=== PATIENT | male | born 1960 | race Hispanic/Latino ===

== ENCOUNTER 2017-07-01 12:22 | Inpatient (IN) | payer MEDICARE, OTHER ==
[2017-07-01 12:33] VITALS: BMI 22.5
--- NOTE | 2017-07-01 12:56 | ED PDOC ---
Arrival/HPI - General Time Seen by Provider: 07/01/17 12:27 Historian: Patient - History of Present Illness Narrative History of Present Illness (Text): 07/01/17 12:35 A 57 year old male, whose past medical history includes hypertension, GERD, heart surgery, presents to the emergency department for increasing pain and swelling and redness to his right foot over the past several days. The patient reports he has had a problem with his right foot and lower extremity for several weeks, but can no recall when problem began. He admits to having his foot evaluated by Dr. Lane 1 week although he cannot recollect the recommended treatment plan after that visit. He states for "months" he has been feeling short of breath. He also states that "I was hanging out with my friend yesterday and he told me 'what's wrong with you you aren't acting yourself'". He currently denies chest pain. Denies abdominal pain. Denies nausea or vomiting. Denies numbness or weakness. Time/Duration: 24 hours (last night) Symptom Onset: Sudden Symptom Course: Unchanged Activities at Onset: Light Context: Home Past Medical History - Provider Review Nursing Documentation Reviewed: Yes - Infectious Disease Hx of Infectious Diseases: None - Tetanus Immunization Tetanus Immunization: Unknown - Cardiac Hx Cardiac Disorders: Yes Hx Atrial Fibrillation: Yes Hx Hypertension: Yes Hx Peripheral Vascular Disease: Yes Other/Comment: Cardiac ablation: 07/27/14 and 10/25 - Pulmonary Hx Respiratory Disorders: No - Neurological Hx Neurological Disorder: Yes Other/Comment: Peripheral Neuropathy BLE - HEENT Hx HEENT Disorder: No - Renal Hx Renal Disorder: No - Endocrine/Metabolic Hx Endocrine Disorders: Yes (diabetes) Hx Diabetes Mellitus Type 1: Yes - Hematological/Oncological Hx Blood Transfusions: No Hx Blood Transfusion Reaction: No - Integumentary Other/Comment: bilateral great toe wounds - Musculoskeletal/Rheumatological Hx Musculoskeletal Disorders: No - Gastrointestinal Hx Gastrointestinal Disorders: Yes Hx Gastroesophageal Reflux: Yes - Genitourinary/Gynecological Hx Genitourinary Disorders: No - Psychiatric Hx Psychophysiologic Disorder: No Hx Substance Use: No - Surgical History Hx Amputation: Yes (tip of left great toe) Hx Cardiac Catheterization: Yes Hx Musculoskeletal Surgery: Yes - Anesthesia Hx Anesthesia Reactions: No Hx Malignant Hyperthermia: No - Suicidal Assessment Feels Threatened In Home Enviroment: No Family/Social History - Physician Review Nursing Documentation Reviewed: Yes Family/Social History: Unknown Family HX Smoking Status: Never Smoked Hx Alcohol Use: No Hx Substance Use: No Allergies/Home Meds Allergies/Adverse Reactions: Allergies No Known Allergies Allergy (Verified 05/05/13 00:42) Home Medications: Home Meds Medication Instructions Recorded Confirmed Apixaban [Eliquis] 5 mg PO BID 06/21/15 07/01/17 Furosemide [Lasix] 20 mg PO BID 06/21/15 07/01/17 Pantoprazole [Protonix] 40 mg PO DAILY 06/20/16 07/01/17 Insulin Glargine, Recombina 30 units SC DAILY 07/01/17 07/01/17 [Lantus] Insulin Glargine, Recombina 30 units SQ DAILY 07/01/17 07/01/17 [Lantus] Insulin Lispro [humALOG] 07/01/17 Review of Systems - Review of Systems Constitutional: Fatigue, Fevers (subjective) Eyes: absent: Vision Changes, Eye Pain ENT: absent: Hearing Changes, Sore Throat, Rhinorrhea Respiratory: SOB Cardiovascular: MCDONALD. absent: Chest Pain Gastrointestinal: Appetite Changes. absent: Abdominal Pain, Diarrhea, Nausea, Hematochezia Genitourinary Male: absent: Dysuria, Urinary Output Changes Musculoskeletal: Other (right foot pain). absent: Back Pain, Neck Pain Skin: Other (erythema; edema; malodor to the right foot. ) Neurological: absent: Headache, Dizziness, Focal Weakness Endocrine: absent: Diaphoresis Hemo/Lymphatic: absent: Easy Bleeding Psychiatric: absent: Depression, Suicidal Ideation Physical Exam - Physical Exam Narrative Physical Exam (Text): 07/01/17 12:58 Head: Atraumatic. Normocephalic. Eyes: PERRL. EOMI. Conjunctivae are not pale. ENT: Mucous membranes are moist and intact. Oropharynx is clear and symmetric. Neck: Supple. Full ROM. No JVD. No lymphadenopathy. Cardiovascular: Regular rate. Regular rhythm. Systolic murmur. Distal upper extremity pulses intact. Pulmonary/Chest: No evidence of respiratory distress. Clear to auscultation bilaterally. No wheezing, rales or rhonchi. Abdominal: Soft and non-distended. There is no tenderness. No rebound, guarding, or rigidity. No organomegaly. Good bowel sounds. Back: No CVA tenderness. No midline tenderness. Extremities: Patient with significant edema with erythema to right foot, with ulcer on doral medial aspect and purulent drainage, tender to palpation, pulse is not palpable, pain to first metatarsal, edema and erythema extend to right knee Skin: Edema, erythema, tenderness with ulcer and drainage noted to right foot Neurological: Alert, awake, and oriented to person, place, time, and situation. He is very forgetful and loses train of thought in mid conversation but does answer questions appropriately. He has supple neck with no meningeal signs. Decreased sensation to right foot. Motor exam grossly intact although difficulty with movements of the right ankle. Psychiatric: Forgetful, repetetive questions. Vital Signs Reviewed: Yes Vital Signs Temp Pulse Resp BP Pulse Ox 07/01/17 14:51 80 16 122/62 99 07/01/17 12:23 99.1 F 91 H 16 157/50 H 98 Appearance: Positive for: Non-Toxic, Ill-Appearing, Uncomfortable Pain Distress: Mild Mental Status: Positive for: Alert and Oriented X 3 Finger Stick Blood Glucose: 57 Medical Decision Making ED Course and Treatment: 07/01/17 12:58 Impression: A 57 year old male with right foot pain. Differential Diagnosis included but are not limited to: Osteomyelitis vs. Cellulitis vs. Sepsis vs. Hypoglycemia vs. Lung Disease Plan: -- EKG -- Chest X-ray -- Labs -- IV Fluids, Rocephin -- Urine Culture -- Accucheck Finger Stick -- O2 Nasal Cannula -- Procalcitaonin Serum -- Urinalysis -- Reassess and disposition Prior Visits: Notes and results from previous visits were reviewed. The patient was last seen in the emergency department on 06/20/16 for shoulder pain. The patient was discharged home. Progress Notes: Patient is poor historian. Repetitive with answers but is alert, oriented to place and time. Not hypotensive or tachycardic. Bandage removed from right foot and patient with foul odor, pain, erythema consistent with cellulitis and likely osteomyelitis. Initial WBC elevated, but initial lactate unremarkable and vitals remains stable with monitoring. CXR unremarkable for large infiltrate or effusion, oxygen saturations 100% on room air. No pleuritic pain. EKG unremarkable. Rectal exam with no active bleeding. Given high suspicion for osteomyelitis, PMD consulted and ID consult obtained emergently. Case was discussed with Dr. Heath, patient was started on Zyvox and Meropenem. The patient is found to be hyponatremic, anemic, and is found to have elevated creatinine levels, currently no signs of active bleeding. These labs were compared to patients last visit. On re-exam he is eating, drinking, resting comfortably. Xrays suggestive of osteomyelitis with fracture. CT ordered given leukocytosis, reveals air in dorsum of foot, suspect gangrene. PMD Dr. 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 Case reviewed with Dr. Wilson, will emergently evaluate patient for likely OR treatment. Care turned over to admitting physician and consultants, patient admitted and on floor 15:30. Renal insufficiency noted. Anemia noted. Repeat blood sugar improved. Patient admitted to a telemetry bed. - Critical Care Critical Care Minutes: 30 minutes - Lab Interpretations Microbiology Results: Microbiology Results 07/01/17 13:08 Blood S.aureus & Coag-Neg Staph PNA FISH - Final 07/01/17 13:08 Blood Blood Culture - Final Methicillin Resistant S Aureus 07/01/17 13:08 Blood Gram Stain - Final 07/01/17 13:30 Blood Blood Culture - Preliminary Staphylococcus Aureus 07/01/17 13:30 Blood Gram Stain - Final Lab Results: 07/01/17 13:08 07/01/17 13:08 Lab Results 07/01/17 13:08: Procalcitonin 1.25 H 07/01/17 13:08: Sodium 125 L, Chloride 91 L, Potassium 4.2, Carbon Dioxide 25, Anion Gap 13, BUN 38 H, Creatinine 2.1 H, Est GFR ( Amer) 40, Est GFR ( Non-Af Amer) 33, Random Glucose 70, Calcium 9.5, Phosphorus 4.0, Magnesium 2.0, Total Bilirubin 0.7, AST 78 H, ALT 33, Alkaline Phosphatase 184 H, Lactate Dehydrogenase 471, Total Creatine Kinase 58, Troponin I < 0.01, Total Protein 8.7 H, Albumin 3.6, Globulin 5.1, Albumin/Globulin Ratio 0.7 L 07/01/17 13:08: PT 13.3 H, INR 1.23 H, APTT 42.9 H 07/01/17 13:08: WBC 25.8 H* D, RBC 3.62, Hgb 9.1 L, Hct 27.2 L, MCV 75.1 L, MCH 25.1, MCHC 33.5, RDW 14.7 H, Plt Count 458 H, MPV 8.5, Gran % 85.9 H, Lymph % ( Auto) 4.3 L, [place] % (Auto) 9.7 H, Eos % (Auto) 0.0 L, Baso % (Auto) 0.1, Gran # 22.15 H, Lymph # 1.1 L, [place] # 2.5 H, Eos # 0.0, Baso # 0.03, Neutrophils % ( Manual) 86 H, Lymphocytes % (Manual) 8 L, Monocytes % (Manual) 6, Platelet Evaluation Normal, Hypochromasia 1+, Anisocytosis (manual) 1+, Microcytosis ( manual) 1+, Ovalocytes Slight, ESR 130 H 07/01/17 13:08: pO2 30, VBG pH 7.36, VBG pCO2 42.0, VBG HCO3 23.7, VBG Total CO2 25.0, VBG O2 Sat (Calc) 63.9, VBG Base Excess -1.8 L, VBG Potassium 4.2, Sodium 125.0 L, Chloride 92.0 L, Glucose 70 L, Lactate 1.3, FiO2 21.0, Venous Blood Potassium 4.2 07/01/17 12:56: POC Glucose (mg/dL) 64 L 07/01/17 12:30: POC Glucose (mg/dL) 57 L - RAD Interpretation Radiology Orders: 07/01/17 12:49 CHEST PORTABLE [RAD] Stat 07/01/17 12:50 FOOT RIGHT 3 VIEWS ROUTINE [RAD] Stat - Medication Orders Current Medication Orders: Acetaminophen (Tylenol 325mg Tab) 650 mg PO Q4H PRN PRN Reason: Fever >100.4 F Last Admin: 07/05/17 03:10 Dose: 650 mg Re-Assess: ROSARIO Pain/Vitals Document 07/05/17 04:10 CO (Rec: 07/05/17 05:41 CO [id number]) Pain Reassessment Is This A Pain ReAssessment? Yes Albuterol/Ipratropium (Duoneb 3 Mg/0.5 Mg (3 Ml) Ud) 3 ml IH [id number] POWER Last Admin: 07/05/17 08:09 Dose: Not Given Non-Admin Reason: Patient Refused Albuterol/Ipratropium (Duoneb 3 Mg/0.5 Mg (3 Ml) Ud) 3 ml IH Q2H PRN PRN Reason: Shortness of Breath Alprazolam (Xanax) 1 mg PO BID PRN; Protocol PRN Reason: Anxiety Last Admin: 07/05/17 01:46 Dose: 1 mg Re-Assess: Reassess Psych Meds Document 07/05/17 02:46 CO (Rec: 07/05/17 03:02 CO [id number]) Reassess Psych Med Effective Apixaban (Eliquis) 5 mg PO BID POWER PRN Reason: Protocol Last Admin: 07/04/17 17:57 Dose: 5 mg Atorvastatin Calcium (Lipitor) 20 mg PO DIN [facility] Last Admin: 07/04/17 17:57 Dose: 20 mg Diltiazem HCl (Cardizem Cd) 240 mg PO DAILY [facility] Last Admin: 07/04/17 10:47 Dose: 240 mg Docusate Sodium (Colace) 100 mg PO BID [facility] Last Admin: 07/04/17 17:57 Dose: 100 mg Furosemide (Lasix) 20 mg PO DAILY [facility] Last Admin: 07/04/17 10:47 Dose: 20 mg Meropenem 500 mg/ Sodium (Chloride) 100 mls @ 100 mls/hr IVPB Q8 POWER PRN Reason: Protocol Stop: 07/10/17 22:01 Last Admin: 07/05/17 05:39 Dose: 100 mls/hr Sodium Chloride (Sodium Chloride 0.9%) 1,000 mls @ 100 mls/hr IV .Q10H [facility] Last Admin: 07/05/17 06:21 Dose: Daptomycin 540 mg/ Sodium (Chloride) 100 mls @ 200 mls/hr IV Q24H [facility] Stop: 07/13/17 22:16 Last Admin: 07/04/17 22:55 Dose: 200 mls/hr Insulin Detemir (Levemir) 40 unit SC BID [facility] Last Admin: 07/04/17 17:57 Dose: 40 unit Insulin Human Lispro (Humalog) 25 units SC BRK [facility] Last Admin: 07/04/17 08:00 Dose: Not Given Non-Admin Reason: Blood Sugar Parameter Insulin Human Regular (Humulin R High) 0 units SC ACHS POWER PRN Reason: Protocol Last Admin: 07/04/17 22:14 Dose: Not Given Non-Admin Reason: Blood Sugar Parameter Oxycodone HCl (Oxycodone Immediate Release Tab) 30 mg PO Q4H PRN PRN Reason: Pain, severe (8-10) Last Admin: 07/05/17 00:12 Dose: 30 mg Re-Assess: ROSARIO Pain Assessment Document 07/05/17 01:12 CO (Rec: 07/05/17 01:37 CO [facility] [id number]) Pain Reassessment Is this a pain reassessment? Yes Sleep Is patient sleeping during reassessment? No Presence of Pain Presence of Pain No Pantoprazole Sodium (Protonix Ec Tab) 40 mg PO 0600 [facility] Last Admin: 07/05/17 05:39 Dose: 40 mg Discontinued Medications Bupivacaine HCl (Marcaine 0.5%) Confirm Administered Dose 30 ml .ROUTE .STK-MED ONE Stop: 07/01/17 18:17 Fentanyl (Fentanyl) Confirm Administered Dose 100 mcg .ROUTE .STK-MED ONE Stop: 07/01/17 18:32 Ceftriaxone Sodium (Rocephin 1 Gram Ivpb) 1 gm in 100 mls @ 200 mls/hr IVPB ONCE STA PRN Reason: Protocol Stop: 07/01/17 13:26 Last Admin: 07/01/17 13:12 Dose: 200 mls/hr Dextrose/Sodium Chloride (Dextrose 5%/0.9% Ns 1000 Ml) 1,000 mls @ 100 mls/hr IV .Q10H [facility] Last Admin: 07/02/17 01:48 Dose: 100 mls/hr Linezolid (Zyvox 600mg/300ml D5w) 600 mg in 300 mls @ 200 mls/hr IVPB STAT STA PRN Reason: Protocol Stop: 07/01/17 15:13 Last Admin: 07/01/17 16:32 Dose: 200 mls/hr Meropenem 1g/NS 100mL IVPB (Meropenem 1g/Ns 100ml Ivpb) 1 gm in 100 mls @ 100 mls/hr IVPB STAT STA PRN Reason: Protocol Stop: 07/01/17 14:45 Last Admin: 07/01/17 15:07 Dose: 100 mls/hr Sodium Chloride (Sodium Chloride 0.9%) 1,000 mls @ 75 mls/hr IV .[id number] POWER Stop: 07/01/17 21:46 Last Admin: 07/01/17 20:42 Dose: Linezolid (Zyvox 600mg/300ml D5w) 600 mg in 300 mls @ 200 mls/hr IVPB Q12 POWER PRN Reason: Protocol Stop: 07/11/17 22:01 Last Admin: 07/02/17 23:08 Dose: 200 mls/hr Vancomycin HCl 2 gm/ Sodium (Chloride) 500 mls @ 170 mls/hr IVPB ONCE ONE PRN Reason: Protocol Stop: 07/03/17 11:44 Last Admin: 07/03/17 11:15 Dose: Not Given Non-Admin Reason: Patient Refused Comments: stated; "I get hearing difficulty when from [facility]." Lidocaine HCl (Lidocaine 1% (20ml)) Confirm Administered Dose 20 ml .ROUTE .STK- MED ONE Stop: 07/01/17 18:17 Metoclopramide HCl (Reglan) Confirm Administered Dose 10 mg .ROUTE .STK-MED ONE Stop: 07/01/17 18:48 Midazolam HCl (Versed Inj) Confirm Administered Dose 2 mg .ROUTE .STK-MED ONE Stop: 07/01/17 18:32 Ondansetron HCl (Zofran Inj) Confirm Administered Dose 4 mg .ROUTE .STK-MED ONE Stop: 07/01/17 18:47 Oxycodone HCl (Oxycodone Immediate Release Tab) 30 mg PO Q6H PRN PRN Reason: Pain, severe (8-10) Last Admin: 07/02/17 12:25 Dose: 30 mg Re-Assess: [facility] Pain Assessment Document 07/02/17 13:25 JFR (Rec: 07/02/17 13:57 JFR [id number]) Pain Reassessment Is this a pain reassessment? Yes Sleep Is patient sleeping during reassessment? No Presence of Pain Presence of Pain Yes Pain Scale Used Pain Scale Used Numeric Description Intensity of Pain at present 2 Propofol (Diprivan) Confirm Administered Dose 200 mg .ROUTE .STK-MED ONE Stop: 07/01/17 18:45 Propofol (Diprivan) Confirm Administered Dose 200 mg .ROUTE .STK-MED ONE Stop: 07/01/17 18:52 - Scribe Statement The provider has reviewed the documentation as recorded by the Jeb Mann Provider Scribe Attestation: All medical record entries made by the Scribe were at my direction and personally dictated by me. I have reviewed the chart and agree that the record accurately reflects my personal performance of the history, physical exam, medical decision making, and the department course for this patient. I have also personally directed, reviewed, and agree with the discharge instructions and disposition. Disposition/Present on Arrival - Present on Arrival Any Indicators Present on Arrival: Yes History of DVT/PE: No History of Uncontrolled Diabetes: Yes Urinary Catheter: No History of Decub. Ulcer: No History Surgical Site Infection Following: None - Disposition Have Diagnosis and Disposition been Completed?: Yes Diagnosis: Osteomyelitis, Hyponatremia, Leukocytosis, Renal insufficiency, Gas gangrene Disposition: HOSPITALIZED Disposition Time: 14:00 Patient Plan: Admission, Telemetry Patient Problems: Current Active Problems Problem Status Onset Hyponatremia Acute Leukocytosis Acute Osteomyelitis Acute Renal insufficiency Acute Condition: SERIOUS
[2017-07-01] MEDS ORDERED: cefTRIAXone 1 gm 1 GM/100 ML BAG IVPB STA (12:57)
[2017-07-01] MEDS: Dextrose 5%/0.9% NS 1,000 ML IV SCH (13:09)
[2017-07-01 13:14] LABS: VENOUS BLOOD GAS BASE EXCESS -1.8 mmol/L (0.0-2.0); VENOUS BLOOD PH 7.36 (7.32-7.43)
[2017-07-01 13:19] LABS: BASO # 0.03 K/mm3 (0.0-2.0); BASO % 0.1 % (0.0-3.0); GRAN # 22.15 (1.4-6.5); GRAN % 85.9 % (50.0-68.0); HEMATOCRIT 27.2 % (42.0-52.0); LYMPH # 1.1 (1.2-3.4); LYMPH % 4.3 % (22.0-35.0); MEAN CELL VOLUME 75.1 fl (80.0-105.0); MEAN CORPUSCULAR HEMOGLOBIN 25.1 pg (25.0-35.0); MEAN CORPUSCULAR HGB CONC 33.5 g/dl (31.0-37.0); MEAN PLATELET VOLUME 8.5 fl (7.0-11.0); MONO # 2.5 (0.1-0.6); MONO % 9.7 % (1.0-6.0); PLATELET COUNT 458 10^3/uL (120.0-450.0); RED CELL DISTRIBUTION WIDTH 14.7 % (11.5-14.5)
[2017-07-01 13:24] LABS: ALB/GLOB RATIO 0.7 (1.1-1.8); ALKALINE PHOSPHATASE 184 U/L (38-133); ALT/SGPT 33 U/L (7-56); AST/SGOT 78 U/L (15-59); BILIRUBIN,TOTAL 0.7 mg/dL (0.2-1.3); BLOOD UREA NITROGEN 38 mg/dL (7-21); CALCIUM 9.5 mg/dL (8.4-10.5); CARBON DIOXIDE 25 mmol/L (21-33); CHLORIDE 91 mmol/L (98-107); GFR AFRICAN-AMERICAN 40; GLUCOSE,RANDOM 70 mg/dL (70-110); INR 1.23 (0.93-1.08); PARTIAL THROMBOPLASTIN TIME 42.9 Seconds (23.7-30.8); POTASSIUM 4.2 mmol/L (3.6-5.0); SODIUM 125 mmol/L (132-148); TOTAL PROTEIN 8.7 g/dL (5.8-8.3); WHITE BLOOD COUNT 25.8 10^3/ul (4.5-11.0)
[2017-07-01] MEDS ORDERED: Linezolid 600 mg in D5W 300 ml 600 MG/300 ML BAG IVPB STA (13:44)
[2017-07-01 13:46] LABS: TROPONIN I < 0.01 ng/mL
[2017-07-01] MEDS ORDERED: Meropenem 1g/NS 100mL IVPB 1 GM/100 ML PIGGYBACK IVPB STA (13:46)
[2017-07-01 14:29] LABS: ERYTHROCYTE SEDIMENTATION RATE 130 mm/hr (0.00-15.0)
[2017-07-01 14:30] LABS: NEUTROPHIL 86 % (50.0-70.0)
[2017-07-01 14:31] LABS: ANISOCYTOSIS 1+; HYPOCHROMIA 1+; MICROCYTOSIS 1+; OVALOCYTES SLIGHT; PLATELET ESTIMATE NORMAL (NORMAL)
--- NOTE | 2017-07-01 14:41 | RAD ---
PROCEDURE: Right Foot Radiographs. HISTORY: eval for osteomyelitis COMPARISON: 07/15/2015 FINDINGS: BONES: No acute fracture. Status post amputation 3rd digit at the metatarsal phalangeal articulation. Status post arthrodesis of 1st interphalangeal joint. Smooth periosteal reaction is seen about the distal half of the 2nd metatarsal unchanged from prior examination. This may be the result of prior osteomyelitis or healed fracture. There is osseous erosion at the base of the 1st metatarsal at its lateral aspect, evident on the true AP view only. There is also some periosteal reaction seen along the diaphysis of the 1st metatarsal again not evident on prior examination. These findings are concerning for osteomyelitis. No other osseous erosion or periosteal reaction is appreciated elsewhere. 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 SOFT TISSUES: Extensive soft tissue swelling seen about medial aspect of the foot centered over the tarsal -metatarsal articulation. There is some subcutaneous gas noted as well raising concern for gangrene. OTHER FINDINGS: None. IMPRESSION: Findings concerning for osteomyelitis of the 1st metatarsal. Soft tissue swelling with subcutaneous gas seen over the medial aspect of the foot concerning for gangrene. Additional findings as above.
--- NOTE | 2017-07-01 15:09 | RAD ---
HISTORY: sob COMPARISON: 07/11/2015 FINDINGS: LUNGS: No active pulmonary disease. PLEURA: No significant pleural effusion identified, no pneumothorax apparent. CARDIOVASCULAR: Normal. OSSEOUS STRUCTURES: No significant abnormalities. VISUALIZED UPPER ABDOMEN: Normal. OTHER FINDINGS: None. IMPRESSION: No active disease.
--- NOTE | 2017-07-01 15:47 | CT ---
PROCEDURE: CT right foot HISTORY: ct foot eval osteomyelitis/abscess COMPARISON: Not available TECHNIQUE: 1.25 mm contiguous axial sections were acquired through the right foot. Sagittal and coronal images were reformatted from the axial scan. FINDINGS: There is osteomyelitis of the 1st metatarsal with irregular periosteal new bone along the diaphysis of the 1st metatarsal. There is intra-articular fracture at the lateral base of the 1st metatarsal with a separate 12 mm fragment identified. This fragment remains in articulation with the medial cuneiform. There is gas seen within the fracture. There is evidence of osteoarthritis at the 1st tarsal metatarsal articulation. There is erosion of the anterior plantar aspect of the medial cuneiform, both at its medial and lateral aspect. This constellation of findings is consistent with infectious arthritis in addition to the above-noted osteomyelitis. There is subcortical lucency of the distal aspect of the medial cuneiform, likely related to the osteomyelitis/infectious arthritis noted above. There is thick smooth periosteal reaction seen about the distal diaphysis and head of the 2nd metatarsal likely related to prior healed fracture or osteomyelitis. The patient is status post amputation of the 3rd digit at the metatarsal phalangeal articulation. There is periosteal reaction seen over the anterior medial aspect of the distal tibia, likely indicative of osteomyelitis. The patient is status post arthrodesis of the 1st interphalangeal joint. There is extensive soft tissue swelling noted about the ankle. There is subcutaneous gas seen over the dorsal aspect of the midfoot and proximal metatarsals. This is indicative of possible gangrene. There is also gas seen about the medial aspect of 1st metatarsal diaphysis. As noted above, there is gas seen within the 1st tarsal -metatarsal articulation. There is intramedullary gas noted within the proximal half of the 1st metatarsal. IMPRESSION: Multifocal osteomyelitis. 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 Displaced fracture at the lateral base of the 1st metatarsal. Extensive cellulitis. Subcutaneous gas over the dorsum of the foot indicative of possible gangrene.
[2017-07-01] MEDS: Insulin Reg-HIGH-Coverage SC SCH ×2 (16:48→22:23)
--- NOTE | 2017-07-01 17:35 | CP.PCM.CON ---
<Codie Montiel - Last Filed: 07/01/17 19:29> History of Present Illness - History of Present Illness History of Present Illness: 57 year old male with PMHx including DM, neuropathy, HTN, GERD cardiac ablation was seen at bedside regarding right foot ulcer. Patient states that his right foot and leg have been painful for the past 2 days. He states that his foot and leg have also been swollen and red. He states that he has had an ulcer on the bottom of his right foot for months and has been treated by Dr. Lane. He admits to n/v/f/c/sob. Patient states that he last ate at noon. Past Patient History - Infectious Disease Hx of Infectious Diseases: None - Tetanus Immunizations Tetanus Immunization: Unknown - Past Social History Smoking Status: Never Smoked - CARDIAC Hx Cardiac Disorders: Yes Hx Atrial Fibrillation: Yes Hx Hypertension: Yes Hx Peripheral Vascular Disease: Yes Other/Comment: Cardiac ablation: 07/27/14 and 10/25 - PULMONARY Hx Respiratory Disorders: No - NEUROLOGICAL Hx Neurological Disorder: Yes Other/Comment: Peripheral Neuropathy BLE - HEENT Hx HEENT Problems: No - RENAL Hx Chronic Kidney Disease: No - ENDOCRINE/METABOLIC Hx Endocrine Disorders: Yes (diabetes) Hx Diabetes Mellitus Type 1: Yes - HEMATOLOGICAL/ONCOLOGICAL Hx Blood Transfusions: No Hx Blood Transfusion Reaction: No - INTEGUMENTARY Other/Comment: bilateral great toe wounds - MUSCULOSKELETAL/RHEUMATOLOGICAL Hx Musculoskeletal Disorders: No - GASTROINTESTINAL Hx Gastrointestinal Disorders: Yes Hx Gastroesophageal Reflux: Yes - GENITOURINARY/GYNECOLOGICAL Hx Genitourinary Disorders: No - PSYCHIATRIC Hx Psychophysiologic Disorder: No Hx Substance Use: No - SURGICAL HISTORY Hx Amputation: Yes (tip of left great toe) Hx Cardiac Catheterization: Yes Hx Musculoskeletal Surgery: Yes - ANESTHESIA Hx Anesthesia Reactions: No Hx Malignant Hyperthermia: No Meds Allergies/Adverse Reactions: Allergies Allergy/AdvReac Type Severity Reaction Status Date / Time No Known Allergies Allergy Verified 05/05/13 00:42 - Medications Medications: Current Medications Apixaban (Eliquis) 5 mg PO BID POWER PRN Reason: Protocol Docusate Sodium (Colace) 100 mg PO BID [facility] Dextrose/Sodium Chloride (Dextrose 5%/0.9% Ns 1000 Ml) 1,000 mls @ 100 mls/hr IV .Q10H [facility] Last Admin: 07/01/17 13:09 Dose: 100 mls/hr Insulin Human Regular (Humulin R High) 0 units SC ACHS POWER PRN Reason: Protocol Last Admin: 07/01/17 16:48 Dose: Not Given Oxycodone HCl (Oxycodone Immediate Release Tab) 30 mg PO Q6H PRN PRN Reason: Pain, severe (8-10) Physical Exam - Constitutional Appears: Non-toxic, No Acute Distress - Extremities Exam Additional comments: Right lower extremity focused exam: Vasc:DP and PT pulses non-palpable. Skin temperature increased to the right lower extremity Neuro: Gross sensation diminished Ortho: Pain on palpation to right foot and leg Derm: Open ulceration noted to the plantar 1st metatarsal on the right with fibrotic base, probe to bone noted. Foul odor noted, erythema noted, crepitus noted. - Neurological Exam Neurological exam: Alert, Oriented x3 - Psychiatric Exam Psychiatric exam: Normal Affect, Normal Mood Results - Vital Signs Recent Vital Signs: Last Vital Signs Temp 99.0 F 07/01/17 15:42 Pulse 79 07/01/17 16:17 Resp 18 07/01/17 15:59 BP 106/44 L 07/01/17 15:59 Pulse Ox 97 07/01/17 15:59 - Labs Result Diagrams: 07/01/17 13:08 07/01/17 13:08 Labs: Laboratory Results - last 24 hr 07/01/17 16:24 POC Glucose (mg/dL) 250 H Assessment & Plan - Assessment and Plan (Free Text) Assessment: 57 year old male with right foot plantar ulceration with gas gangrene Plan: patient examined and evaluated discussed in detail with attending, Dr. Wilson chart, labs, vitals reviewed;WBC 25.8 radiographs reviewed:soft tissue swelling and gas noted to medial aspect of right foot, OM of the first metatarsal CT IMPRESSION: Multifocal osteomyelitis. Infectious arthritis at the 1st tarsal -metatarsal articulation. Displaced fracture at the lateral base of the 1st metatarsal. Extensive cellulitis. Subcutaneous gas over the dorsum of the foot indicative of possible gangrene PT to OR tonight at 6 pm for right foot I and D NPO status confirmed Pt was explained procedure and post-operative course All pt's questions were answered to satisfaction No guarantees were made Pt understands all risks, benefits and complications of procedure podiatry will follow patient while in house <Brandi Wilson - Last Filed: 07/15/17 19:23> Results - Vital Signs Recent Vital Signs: Last Vital Signs Temp 98 F 07/12/17 07:52 Pulse 73 07/12/17 09:36 Resp 20 07/12/17 07:52 BP 155/74 H 07/12/17 09:36 Pulse Ox 98 07/12/17 07:52 - Labs Result Diagrams: 07/12/17 06:05 07/12/17 06:05 Attending/Attestation - Attestation I have personally seen and examined this patient.: Yes I have fully participated in the care of the patient.: Yes I have reviewed all pertinent clinical information: Yes
[2017-07-01] MEDS ORDERED: Lidocaine 1% Inj (20ml) ONE (18:16)
[2017-07-01] MEDS ORDERED: Bupivacaine 0.5% Inj(30mL) ONE (18:16)
[2017-07-01] MEDS ORDERED: Midazolam 2 MG/2 ML VIAL ONE (18:31)
[2017-07-01] MEDS ORDERED: Propofol 10 mg/ml Inj (20 ML) ONE ×2 (18:44→18:51)
--- NOTE | 2017-07-01 19:29 | PCM.SURG1 ---
Surgeon's Initial Post Op Note - Surgeon's Notes Surgeon: Dr. Wilson DPM Car Audio Installer: Dr. Montiel DPM PGY-2 Type of Anesthesia: IV Sedation, Local Anesthesia Administered By: Dr. Dumont Pre-Operative Diagnosis: right foot gas gangrene with plantar ulceration Operative Findings: see dictation Post-Operative Diagnosis: same Operation Performed: right foot incision and drainage with debridement of plantar ulceration Specimen/Specimens Removed: right foot deep wound culture, soft tissue Estimated Blood Loss: EBL {In ML}: 15 Blood Products Given: N/A Drains Used: No Drains Post-Op Condition: Good Date of Surgery/Procedure: 07/01/17 Time of Surgery/Procedure: 19:29
[2017-07-01] MEDS ORDERED: Sodium Chloride 0.9% 1,000 ML IV SCH (19:45)
[2017-07-01] MEDS: Meropenem 500 MG in Sodium Chloride 0.9% 100 ML IVPB SCH (21:49)
[2017-07-01] MEDS: Linezolid 600 mg in D5W 300 ml 600 MG/300 ML BAG IVPB SCH (21:49)
[2017-07-01] MEDS ORDERED: Linezolid 600 mg in D5W 300 ml 600 MG/300 ML BAG IVPB SCH (22:00)
[2017-07-02 01:20] LABS: URINE BILIRUBIN NEGATIVE (NEGATIVE); URINE BLOOD NEGATIVE (NEGATIVE); URINE GLUCOSE (UA) 250 mg/dL (NEGATIVE); URINE KETONE NEGATIVE (NEGATIVE); URINE LEUKOCYTE ESTERASE NEGATIVE Leu/uL (NEGATIVE); URINE PROTEIN TRACE mg/dL (<30 mg/dL); URINE UROBILINOGEN 0.2 E.U./dL (<1 E.U./dL)
[2017-07-02 01:23] LABS: URINE APPEARANCE CLEAR (CLEAR); URINE COLOR YELLOW (YELLOW)
[2017-07-02 01:44] LABS: URINE EPITHELIAL CELLS 0 - 2 /hpf (0-5); URINE WBC 0 - 2 /hpf (0-6)
[2017-07-02 01:45] LABS: URINE RBC 0 - 2 /hpf (0-2)
[2017-07-02] MEDS: Dextrose 5%/0.9% NS 1,000 ML IV SCH (01:48)
[2017-07-02] MEDS: Meropenem 500 MG in Sodium Chloride 0.9% 100 ML IVPB SCH ×3 (05:03→22:00)
[2017-07-02] MEDS: oxyCODONE 30 mg Immediate Release Tab PO PRN ×4 (05:08→20:46)
--- NOTE | 2017-07-02 06:48 | OP ---
PROCEDURE DATE: 07/01/2017 PREOPERATIVE DIAGNOSIS: Right foot gas gangrene with plantar ulceration. POSTOPERATIVE DIAGNOSIS: Right foot gas gangrene with plantar ulceration. NAME OF PROCEDURE: Right foot incision and drainage with plantar ulcer debridement. SURGEON: Branid Wilson DPM DRUG ROOM CLERK: Codie Montiel DPM, PGY2. TYPE OF ANESTHESIA: IV sedation with local. ANESTHESIA ADMINISTERED BY: Dr. Dumont. INDICATIONS: The patient is a 57-year-old male with the above diagnosis. The patient has exhausted all conservative treatment at time and now requires surgical intervention. The patient signed the consent after careful explanation of risks, benefits, complications and alternatives for surgical procedure. No guarantees were given nor implied. DESCRIPTION OF PROCEDURE: The patient was brought into the operating room table. A time out was performed for for identification of correct patient and procedure. The patient received an ankle block with a total of 20 mL of 1:1 mixture of 1% lidocaine plain and 0.5% Marcaine plain. Once local anesthesia was achieved, the right foot was then prepped and draped in a normal sterile manner and procedure began. PROCEDURE 1: Right foot incision and drainage with plantar ulcer debridement. Attention was directed to the dorsal aspect of the first metatarsal where approximately 8 cm incision was made from the first metatarsal phalangeal joint to the midfoot. The incision was then deepened,utilizing hemostat. Purulent and sanguineous drainage was noted coming from the surgical site. The tissue planes were then explored with a hemostat. A deep tissue culture was then obtained and passed of the field and sent for pathology. Attention was then directed to the plantar aspect of the 1st metatarsal where a ulceration was noted approximately 4 cm x 4 cm that probe to bone. The nonviable tissue was excisionally debrided with pickups and scissors and then passed off the surgical site. As the ulcer probed to bone, hemostats were placed in the ulceration site and purulent drainage was noted. The track from the dorsal and plantar sites were then explored with a hemostat and purulence was expressed. Then utilizing a pulse lavage approximately 3 liters of normal sterile saline was used to irrigate the surgical site. All the purulence was noted to have been expressed at this time. The surgical site was then packed with 1/4 inch iodoform packing. The site was then dressed with sterile 4 x 4 gauze, ABD pads and lastly Kerlix. POSTOPERATIVE CONDITION: The patient tolerated the anesthesia and procedure well and was reported to PACU with vital signs stable. The patient will be followed inhouse. Codie Montiel DPM JULIA
[2017-07-02 08:03] LABS: GRAN % 84.9 % (50.0-68.0); HEMATOCRIT 24.1 % (42.0-52.0); LYMPH % 7.3 % (22.0-35.0); MEAN CELL VOLUME 75.8 fl (80.0-105.0); MEAN CORPUSCULAR HEMOGLOBIN 24.5 pg (25.0-35.0); MEAN CORPUSCULAR HGB CONC 32.4 g/dl (31.0-37.0); MEAN PLATELET VOLUME 7.9 fl (7.0-11.0); MONO % 7.7 % (1.0-6.0); RED CELL DISTRIBUTION WIDTH 14.6 % (11.5-14.5); WHITE BLOOD COUNT 12.4 10^3/ul (4.5-11.0)
[2017-07-02 08:04] LABS: BASO # 0.01 K/mm3 (0.0-2.0); BASO % 0.1 % (0.0-3.0); GRAN # 10.54 (1.4-6.5); LYMPH # 0.9 (1.2-3.4)
[2017-07-02] MEDS: Sodium Chloride 0.9% 1,000 ML IV SCH (08:11)
[2017-07-02] MEDS: Insulin Reg-HIGH-Coverage SC SCH ×4 (08:11→21:27)
[2017-07-02 08:14] LABS: INR 1.29 (0.93-1.08)
[2017-07-02 08:19] LABS: ALB/GLOB RATIO 0.6 (1.1-1.8); ALKALINE PHOSPHATASE 151 U/L (38-133); ALT/SGPT 34 U/L (7-56); AST/SGOT 33 U/L (15-59); BILIRUBIN,TOTAL 0.2 mg/dL (0.2-1.3); BLOOD UREA NITROGEN 17 mg/dL (7-21); CALCIUM 8.2 mg/dL (8.4-10.5); CARBON DIOXIDE 24 mmol/L (21-33); CHLORIDE 96 mmol/L (98-107); GFR AFRICAN-AMERICAN > 60; GLUCOSE,RANDOM 263 mg/dL (70-110); POTASSIUM 3.9 mmol/L (3.6-5.0); SODIUM 127 mmol/L (132-148); TOTAL PROTEIN 6.9 g/dL (5.8-8.3)
--- NOTE | 2017-07-02 10:13 | CARD ---
APPROVED REPORT EKG Measurement Heart [id number] <Conclusion> Normal sinus rhythm Normal ECG
[2017-07-02] MEDS: Linezolid 600 mg in D5W 300 ml 600 MG/300 ML BAG IVPB SCH ×2 (10:51→23:08)
[2017-07-02] MEDS: Insulin Detemir 100 units/ml Vial (Levemir) SC SCH ×2 (10:51→17:33)
[2017-07-02] MEDS: diltiaZEM 240 mg/24 Hours CD Cap PO SCH (10:52)
--- NOTE | 2017-07-02 11:59 | CP.PCM.CON ---
History of Present Illness - History of Present Illness History of Present Illness: 57 year old male with PMH of HTN, DM, GERD, peripheral neuropathy, history of cardiac ablation, history of left hallux partial amputation, peripheral vascular disease has had a right foot plantar ulcer for more than a month now and has been following with a Funeral Service Manager with local wound care and at times local antibiotic ointment application. He had been doing well until about 2 days ago when he started to feel pain and swelling of his right foot which progressively worsened over 2 days. He did not notice drainage from the ulcer then. He also denies fever or chlls, no nausea or vomiting, no headache or dizziness, no chest pain, no SOB, no abdominal pain, no diarrhea, no dysuria. CT of the leg showed probable gas gangrene and the patient underwent emergent surgery with debridement of his right foot. Infectious diseases consult is requested to further evaluate and manage. Review of Systems - Review of Systems All systems: reviewed and no additional remarkable complaints except (as per HPI ) Past Patient History - Infectious Disease Hx of Infectious Diseases: None - Tetanus Immunizations Tetanus Immunization: Unknown - Past Social History Smoking Status: Never Smoked - CARDIAC Hx Cardiac Disorders: Yes Hx Atrial Fibrillation: Yes Hx Hypertension: Yes Hx Peripheral Vascular Disease: Yes Other/Comment: Cardiac ablation: 07/27/14 and 10/25 - PULMONARY Hx Respiratory Disorders: No - NEUROLOGICAL Hx Neurological Disorder: Yes Other/Comment: Peripheral Neuropathy BLE - HEENT Hx HEENT Problems: No - RENAL Hx Chronic Kidney Disease: No - ENDOCRINE/METABOLIC Hx Endocrine Disorders: Yes (diabetes) Hx Diabetes Mellitus Type 1: Yes - HEMATOLOGICAL/ONCOLOGICAL Hx Blood Transfusions: No Hx Blood Transfusion Reaction: No - INTEGUMENTARY Other/Comment: bilateral great toe wounds - MUSCULOSKELETAL/RHEUMATOLOGICAL Hx Musculoskeletal Disorders: No - GASTROINTESTINAL Hx Gastrointestinal Disorders: Yes Hx Gastroesophageal Reflux: Yes - GENITOURINARY/GYNECOLOGICAL Hx Genitourinary Disorders: No - PSYCHIATRIC Hx Psychophysiologic Disorder: No Hx Substance Use: No - SURGICAL HISTORY Hx Amputation: Yes (tip of left great toe) Hx Cardiac Catheterization: Yes Hx Musculoskeletal Surgery: Yes - ANESTHESIA Hx Anesthesia Reactions: No Hx Malignant Hyperthermia: No Meds Allergies/Adverse Reactions: Allergies Allergy/AdvReac Type Severity Reaction Status Date / Time No Known Allergies Allergy Verified 05/05/13 00:42 - Medications Medications: Current Medications Acetaminophen (Tylenol 325mg Tab) 650 mg PO Q4H PRN PRN Reason: Fever >100.4 F Last Admin: 07/02/17 05:03 Dose: 650 mg Alprazolam (Xanax) 1 mg PO BID PRN; Protocol PRN Reason: Anxiety Apixaban (Eliquis) 5 mg PO BID POWER PRN Reason: Protocol Last Admin: 07/01/17 18:25 Dose: Not Given Atorvastatin Calcium (Lipitor) 20 mg PO DIN [facility] Diltiazem HCl (Cardizem Cd) 240 mg PO DAILY [facility] Docusate Sodium (Colace) 100 mg PO BID [facility] Last Admin: 07/01/17 18:25 Dose: Not Given Furosemide (Lasix) 20 mg PO DAILY [facility] Meropenem 500 mg/ Sodium (Chloride) 100 mls @ 100 mls/hr IVPB Q8 POWER PRN Reason: Protocol Stop: 07/10/17 22:01 Last Admin: 07/02/17 05:03 Dose: 100 mls/hr Linezolid (Zyvox 600mg/300ml D5w) 600 mg in 300 mls @ 200 mls/hr IVPB Q12 POWER PRN Reason: Protocol Stop: 07/11/17 22:01 Last Admin: 07/01/17 21:49 Dose: 200 mls/hr Sodium Chloride (Sodium Chloride 0.9%) 1,000 mls @ 100 mls/hr IV .Q10H [facility] Last Admin: 07/02/17 08:11 Dose: 100 mls/hr Insulin Detemir (Levemir) 40 unit SC BID [facility] Insulin Human Lispro (Humalog) 25 units SC BRK [facility] Insulin Human Regular (Humulin R High) 0 units SC ACHS [facility] PRN Reason: Protocol Last Admin: 07/02/17 08:11 Dose: 10 units Oxycodone HCl (Oxycodone Immediate Release Tab) 30 mg PO Q6H PRN PRN Reason: Pain, severe (8-10) Last Admin: 07/02/17 05:08 Dose: 30 mg Pantoprazole Sodium (Protonix Ec Tab) 40 mg PO 0600 [facility] Physical Exam - Constitutional Appears: Non-toxic, No Acute Distress - Head Exam Head Exam: NORMAL INSPECTION - ENT Exam ENT Exam: Mucous Membranes Moist - Neck Exam Neck exam: Negative for: Lymphadenopathy, Meningismus - Respiratory Exam Respiratory Exam: Decreased Breath Sounds - Cardiovascular Exam Cardiovascular Exam: +S1, +S2 - GI/Abdominal Exam GI & Abdominal Exam: Soft. absent: Tenderness - Extremities Exam Additional comments: right foot with dry dressings in place Results - Vital Signs Recent Vital Signs: Last Vital Signs Temp 100.1 F H 07/02/17 05:55 Pulse 84 07/02/17 05:55 Resp 20 07/02/17 05:55 BP 110/60 07/02/17 05:55 Pulse Ox 99 07/02/17 05:55 - Labs Result Diagrams: 07/02/17 07:20 07/02/17 07:20 Labs: Laboratory Results - last 24 hr 07/01/17 07/01/17 07/02/17 16:24 22:16 00:53 WBC RBC Hgb Hct MCV MCH MCHC RDW Plt Count MPV Gran % Lymph % (Auto) Gage % (Auto) Eos % (Auto) Baso % (Auto) Gran # Lymph # Gage # Eos # Baso # PT INR Sodium Potassium Chloride Carbon Dioxide Anion Gap BUN Creatinine Est GFR ( Amer) Est GFR (Non-Af Amer) POC Glucose (mg/dL) 250 H 223 H Random Glucose Calcium Total Bilirubin AST ALT Alkaline Phosphatase Total Protein Albumin Globulin Albumin/Globulin Ratio Urine Color Yellow Urine Appearance Clear Urine pH 6.0 Ur Specific [place] 1.025 Urine Protein Trace H Urine Glucose (UA) 250 H Urine Ketones Negative Urine Blood Negative Urine Nitrate Negative Urine Bilirubin Negative Urine Urobilinogen 0.2 Ur Leukocyte Esterase Negative Urine RBC 0 - 2 Urine WBC 0 - 2 Ur Epithelial Cells 0 - 2 07/02/17 07/02/17 07/02/17 07:20 07:20 07:20 WBC 12.4 H D RBC 3.18 L Hgb 7.8 L Hct 24.1 L MCV 75.8 L MCH 24.5 L MCHC 32.4 RDW 14.6 H Plt Count 281 MPV 7.9 Gran % 84.9 H Lymph % (Auto) 7.3 L Gage % (Auto) 7.7 H Eos % (Auto) 0.0 L Baso % (Auto) 0.1 Gran # 10.54 H Lymph # 0.9 L Gage # 1.0 H Eos # 0.0 Baso # 0.01 PT 13.9 H INR 1.29 H Sodium 127 L Potassium 3.9 Chloride 96 L Carbon Dioxide 24 Anion Gap 11 BUN 17 Creatinine 0.6 Est GFR ( Amer) > 60 Est GFR (Non-Af Amer) > 60 POC Glucose (mg/dL) Random Glucose 263 H Calcium 8.2 L Total Bilirubin 0.2 AST 33 ALT 34 Alkaline Phosphatase 151 H Total Protein 6.9 Albumin 2.7 L Globulin 4.2 Albumin/Globulin Ratio 0.6 L Urine Color Urine Appearance Urine pH Ur Specific [place] Urine Protein Urine Glucose (UA) Urine Ketones Urine Blood Urine Nitrate Urine Bilirubin Urine Urobilinogen Ur Leukocyte Esterase Urine RBC Urine WBC Ur Epithelial Cells 07/02/17 07:28 WBC RBC Hgb Hct MCV MCH MCHC RDW Plt Count MPV Gran % Lymph % (Auto) Gage % (Auto) Eos % (Auto) Baso % (Auto) Gran # Lymph # Gage # Eos # Baso # PT INR Sodium Potassium Chloride Carbon Dioxide Anion Gap BUN Creatinine Est GFR ( Amer) Est GFR (Non-Af Amer) POC Glucose (mg/dL) 329 H Random Glucose Calcium Total Bilirubin AST ALT Alkaline Phosphatase Total Protein Albumin Globulin Albumin/Globulin Ratio Urine Color Urine Appearance Urine pH Ur Specific [place] Urine Protein Urine Glucose (UA) Urine Ketones Urine Blood Urine Nitrate Urine Bilirubin Urine Urobilinogen Ur Leukocyte Esterase Urine RBC Urine WBC Ur Epithelial Cells Assessment & Plan - Assessment and Plan (Free Text) Plan: Assessment Sepsis due to probable gas gangrene with osteomyelitis of the right foot associated with a chronic plantar ulcer S/P debridement POD #1 HTN DM GERD peripheral neuropathy history of cardiac ablation history of left hallux partial amputation peripheral vascular disease Plan started patient on Zyvox and Merrem pending OR cx and pathology; patient may need further debdridement; follow up further Podiatry plans (ie. for further debridement) will monitor clinically
--- NOTE | 2017-07-02 22:51 | HP ---
DATE OF SERVICE: 07/02/2017 HISTORY OF PRESENT ILLNESS: The patient is a 57 year old man with insulin dependent diabetes mellitus with diabetic neuropathy, hypertension, hyperlipidemia and history of right lower extremity cellulitis and osteomyelitis of the right first toe with MRSA bacteremia who presented to [facility] with a several day history of lethargy, malaise, subjective fevers and severe right foot pain. The patient lives in both [place] and [place] and has been in [place] for the past several months; however, he has recently returned to [place] and upon his return he noted increased right foot discomfort. The patient states that initially the pain was very mild and had progressed over the course of several days. He noted increasing edema and erythema associated with his pain, but no purulent discharge. The patient is closely followed by Dr. Lane of podiatry given his history of right hammer toe repair with hardware placement (in 2014) with subsequent complications as noted above at which the patient was admitted for osteomyelitis and MRSA bacteremia. Upon this presentation to the emergency department, the patient was noted to be afebrile and hemodynamically stable; however, in significant discomfort secondary to right foot pain. Imaging studies, which were obtained consisting of an x ray and a CT, demonstrated multifocal osteomyelitis and infectious arthritis as well as subcutaneous gas formation over the dorsum. Given his physical examination, radiographic findings and multiple derangements on his laboratory studies, the patient was taken urgently to the OR with Dr. Wilson of the podiatry team. This morning, he is lying comfortably in bed and states his pain symptoms have significantly improved, and otherwise, offers no complaints. PAST MEDICAL HISTORY: As per HPI. Also hyperlipidemia, anxiety disorder and paroxysmal atrial fibrillation. PAST SURGICAL HISTORY: As per HPI. Also repair of Achilles tendon tear. ALLERGIES: NO KNOWN DRUG ALLERGIES. MEDICATIONS: Humalog 70/30 25 units SC q.a.m., Lantus 40 units SC b.i.d., Eliquis 5 mg p.o. b.i.d., Lasix 20 mg p.o. daily, Protonix 40 mg p.o. daily, Ramipril 2.5 mg p.o. daily, Diltiazem 240 mg p.o. daily, Xanax 1 mg p.o. b.i.d. and oxycodone 30 mg p.o. q. 4 hours p.r.n. pain. FAMILY HISTORY: Significant for hypertension, diabetes and hyperlipidemia. SOCIAL HISTORY: The patient denies any toxic habits. REVIEW OF SYSTEMS: Significant for malaise, subjective fevers, chills and pain with edema to the right foot. Negative for chest pain, cough, palpitations, nausea, vomiting, diarrhea, headache or syncope. PHYSICAL EXAMINATION: GENERAL: Frail, toxic appearing man, lying in bed in mild distress secondary to right foot pain. VITAL SIGNS: Temperature 100.1, pulse 84, blood pressure 110/60, respiratory rate 20 and oxygen saturation 99% on room air. HEENT: PERRL. EOMI. No scleral icterus. No conjunctival pallor. NECK: No JVD. LUNGS: Clear to auscultation. CARDIOVASCULAR: Regular rate and rhythm. Normal S1 and S2. ABDOMEN: Normoactive bowel sounds. Soft, nontender and nondistended. EXTREMITIES: Left lower extremity with no edema. Right lower extremity with edema and surgical dressing in place. NEUROLOGIC: Awake, alert and oriented x3. No focal motor deficits. Decrease sensation to all toes bilaterally. LABORATORY DATA: WBC 25.8 with 86% neutrophils, hemoglobin 9, hematocrit 27 and platelets 458. Sodium 125, potassium 4.2, chloride 91, bicarbonate 25, BUN 38, creatinine 2.1 and glucose 70. Procalcitonin 1.25. IMAGING STUDIES: Chest x ray demonstrates no active disease. Right foot x ray demonstrates findings concerning for osteomyelitis of the first metatarsal with soft tissue swelling and subcutaneous gas. CT of the right lower extremity without contrast demonstrates multifocal osteomyelitis and infectious arthritis of the first metatarsal with extensive cellulitis and subcutaneous gas over the dorsum of the right foot. ASSESSMENT: The patient is a 57-year-old man with insulin dependent diabetes mellitus with diabetic neuropathy, hypertension, hyperlipidemia, and history of right lower extremity osteomyelitis with methicillin-resistant Staphylococcus aureus bacteremia who presented to the [facility] with several day history of increasing right foot pain, edema and erythema who was subsequently found to have subcutaneous gas on imaging studies who was emergently taken to the operating room by Dr. Wilson of podiatry. PLAN: 1. Osteomyelitis of the right foot. Input from Dr. Wilson note is really appreciated and the patient is status post debridement in the OR given findings of subcutaneous gas on imaging studies. Input from Dr. Heath also noted and appreciated. The patient remains on meropenem 500 mg IV q.8 hours and Linezolid 600 mg IV q. 12 hours. Continue monitoring for fever and leukocytosis. Continue with Tylenol as needed for fever. We will await culture reports. Continue with postoperative care as per Dr. Wilson and Dr. Lane of podiatry. 2. Hypertension. Blood pressure remains stable. The patient is on Ramipril 2.5 mg p.o. daily at home; however, given his acute kidney injury, we will hold Ramipril at present. 3. Hyperlipidemia. We will start Lipitor 20 mg p.o. daily. 4. Acute kidney injury. Considered secondary to prerenal azotemia in the setting of poor p.o. intake and in the setting of sever sepsis. Continue with IV fluid hydration consisting of normal saline at 100 mL per hour. Continue to monitor renal function daily. Monitor strict ins and outs. Avoid nephrotoxins and renally dosed medications. 5. Hyponatremia. Etiology likely secondary to poor p.o. intake. Continue with aggressive IV fluid hydration as above. 6. Insulin dependent diabetes mellitus with diabetic neuropathy. We will resume the patient's home regimen consisting of Humalog 70/30 25 units SC q.a.m. and Lantus 40 units SC b.i.d. 7. Anxiety disorder. Continue with Xanax 1 mg p.o. b.i.d. 8. Paroxysmal atrial fibrillation. We will resume Diltiazem 240 mg p.o. daily. We will hold Eliquis 5 mg p.o. b.i.d. in anticipation of possible operative intervention with the podiatry team. 9. Sciatica. Continue with oxycodone 30 mg p.o. q. 4 hours p.r.n. pain. 10. Prophylaxis. Continue with Protonix 40 mg p.o. daily. We will hold anticoagulation pending possible repeat podiatric procedure. CODE STATUS: FULL CODE. Ty Monterroso MD
[2017-07-03] MEDS: oxyCODONE 30 mg Immediate Release Tab PO PRN ×2 (04:23→22:15)
[2017-07-03] MEDS: Pantoprazole 40 mg EC Tab PO SCH (05:03)
[2017-07-03] MEDS: Meropenem 500 MG in Sodium Chloride 0.9% 100 ML IVPB SCH ×3 (05:03→22:01)
[2017-07-03] MEDS: Sodium Chloride 0.9% 1,000 ML IV SCH ×3 (05:04→17:55)
[2017-07-03 07:17] LABS: BASO # 0.02 K/mm3 (0.0-2.0); BASO % 0.2 % (0.0-3.0); EOS # 0.2 (0.0-0.7); EOS % 1.3 % (1.5-5.0); GRAN # 9.3 (1.4-6.5); GRAN % 77.1 % (50.0-68.0); HEMATOCRIT 26.5 % (42.0-52.0); LYMPH # 1.4 (1.2-3.4); LYMPH % 11.6 % (22.0-35.0); MEAN CELL VOLUME 77.7 fl (80.0-105.0); MEAN CORPUSCULAR HEMOGLOBIN 25.5 pg (25.0-35.0); MEAN CORPUSCULAR HGB CONC 32.8 g/dl (31.0-37.0); MONO # 1.2 (0.1-0.6); MONO % 9.8 % (1.0-6.0); RED CELL DISTRIBUTION WIDTH 15.4 % (11.5-14.5); WHITE BLOOD COUNT 12.1 10^3/ul (4.5-11.0)
[2017-07-03 07:28] LABS: INR 1.16 (0.93-1.08)
[2017-07-03 07:33] LABS: ALB/GLOB RATIO 0.6 (1.1-1.8); ALKALINE PHOSPHATASE 154 U/L (38-133); ALT/SGPT 34 U/L (7-56); AST/SGOT 40 U/L (15-59); BILIRUBIN,TOTAL 0.5 mg/dL (0.2-1.3); BLOOD UREA NITROGEN 12 mg/dL (7-21); CALCIUM 8.4 mg/dL (8.4-10.5); CARBON DIOXIDE 27 mmol/L (21-33); CHLORIDE 98 mmol/L (98-107); GFR AFRICAN-AMERICAN > 60; GLUCOSE,RANDOM 104 mg/dL (70-110); POTASSIUM 4.9 mmol/L (3.6-5.0); SODIUM 131 mmol/L (132-148); TOTAL PROTEIN 6.9 g/dL (5.8-8.3)
[2017-07-03] MEDS: Insulin Reg-HIGH-Coverage SC SCH ×4 (07:50→22:00)
[2017-07-03] MEDS: Insulin Lispro 1 UNITS/0.01 ML SC SCH (08:41)
[2017-07-03] MEDS ORDERED: Vancomycin 2 GM in Sodium Chloride 0.9% 500 ML IVPB ONE (08:48)
--- NOTE | 2017-07-03 09:57 | RAD ---
PROCEDURE: Right Foot Radiographs. HISTORY: post debridement view, eval for gas COMPARISON: CT of the lower extremity 07/01/[address] right foot 07/01/2017 FINDINGS: BONES: Status post amputation 3rd digit at the metatarsal-phalangeal joint level -unchanged. No normal-appearing 1st interphalangeal joint face is noted; previously referenced here First metatarsal-phalangeal joint hypertrophic arthrosis as before. Interrupted medial and lateral 1st metatarsal shaft periosteal reaction consistent with acute - subacute osteomyelitis. Patient with known 1st metatarsal base displaced fracture fragment and super imposition and disorganization here suggested on radiographs. Lucencies here. Aseptic 1st metatarsal-phalangeal joint needs to be considered. There is as before gas within the mostly dorsal and medial sided soft tissues from the medial cuneiform to the distal 1st meta tarsal shaft -gas-forming cellulitis is consistent with this. Findings were noted on the prior CT The 2nd meta tarsal periosteal reaction smooth consistent with healed trauma and/or more chronic osteomyelitis here. No current radiolucencies here to suggest ongoing osteomyelitis appreciated. JOINTS: As above SOFT TISSUES: Swelling dorsal and medial OTHER FINDINGS: None. IMPRESSION: Findings consistent with both acute/ subacute and chronic osteomyelitis. The current more active findings apply to the 1st metatarsal. At the 1st tarsal metatarsal articulation reticulation, 1st metatarsal base fracture has been previously demonstrated. 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 Currently subcutaneous gas dorsal and medial is tarsal metatarsal articulation level are present and consistent with a gas-forming cellulitis.
[2017-07-03] MEDS ORDERED: VANCOMYCIN IVPB SCH (10:00)
[2017-07-03] MEDS ORDERED: SODIUM CHLORIDE 0.9% IVPB SCH (10:00)
--- NOTE | 2017-07-03 10:07 | RAD ---
PROCEDURE: Right Ankle Radiographs. HISTORY: cellulitis, post I D right foot, eval for gas COMPARISON: Right foot x-ray same-day. A foot x-ray 07/01/2017. Right right CT lower extremity 07/01/2017 FINDINGS: BONES: Please note the same-day right foot x-ray findings The talar dome appears intact. Plantar arch appear shallow. The 1st metatarsal base fracture is best exam flat on the aforementioned CT exam JOINTS: . Ankle mortise maintained. Talar dome intact midfoot and 1st metatarsal-phalangeal joint osteoarthrosis are suggested. Many these findings are better exam per 5 on the same-day right foot x-ray SOFT TISSUES: There is soft tissue swelling with soft tissue gas were some mostly at the metatarsal levels on lateral view. Plantar soft tissue defect resembling a large ulcer with or without debridement here. This measures 4.4 x 1.7 cm in size the ulcer closely approximates the osseous structures at the tarsal metatarsal level Lesser gas within the plantar soft tissues also at the metatarsal level on the lateral view are also noted. OTHER FINDINGS: None. IMPRESSION: Mixed pathologies suggested. Patient has known displaced fracture 1st metatarsal base poorly appreciated on this exam and recent prior exams suggestive of 1st tarsal metatarsal arthrosis with the suspect septic arthrosis here as well. Areas of acute/subacute and chronic osteomyelitis findings are suggested regarding the 1st metatarsal as well. This exam suggest gas forming cellulitis - dorsal soft tissues most notably - but also in plantar soft tissues. On this exam, a large plantar ulcer is suggested. This ulcer closely approximates (a few mm distance from the) tarsal osseous cortices .
[2017-07-03] MEDS: diltiaZEM 240 mg/24 Hours CD Cap PO SCH (10:49)
[2017-07-03] MEDS: Insulin Detemir 100 units/ml Vial (Levemir) SC SCH ×2 (10:50→17:30)
[2017-07-03] MEDS ORDERED: Albuterol-Ipratrop 3 mg / 0.5 (3 ml) UD IH PRN (10:55)
[2017-07-03] MEDS: Albuterol-Ipratrop 3 mg / 0.5 (3 ml) UD IH SCH ×4 (11:10→23:51)
--- NOTE | 2017-07-03 16:36 | PN ---
SUBJECTIVE: The patient seen on examined at bedside on the telemetry rolle. No acute events overnight. He remains afebrile and hemodynamically stable. The patient is status post transfusion of 2 units PRBCs for symptomatic anemia. This morning the patient states he feels okay, but endorses dysphagia stating that he has some difficulty swallowing solid substances. He also complains of right lower extremity pain and weakness, which is worse since his operative debridement of his right foot wound, but otherwise, offers no others complaints. OBJECTIVE: VITAL SIGNS: Temperature 98.2, pulse 65, blood pressure 107/58, respiratory rate 18 and oxygen saturation 97% on room air. GENERAL: Frail man appearing older than stated age, lying in bed in mild distress secondary to right foot pain. HEENT: PERRL. EOMI. No scleral icterus. Mild conjunctival pallor is noted. NECK: No JVD. LUNGS: Clear to auscultation. CARDIOVASCULAR: Regular rate and rhythm. Normal S1 and S2. ABDOMEN: Normoactive bowel sounds. Soft, nontender and nondistended. EXTREMITIES: Right lower extremity with surgical dressing in place with scant serosanguinous discharge. Left lower extremity without edema. NEUROLOGIC: Awake, alert and oriented x3. No focal motor deficits. Decrease sensation to all toes bilaterally. LABORATORY DATA: WBC 12.1 with 77% neutrophils, hemoglobin 8.7, hematocrit 26 and platelets 343. Sodium 131, potassium 4.9, chloride 98, bicarbonate 27, BUN 12, creatinine 0.6 and glucose 104. Blood cultures with Staphylococcus aureus with sensitivities pending. Right foot wound culture pending. ASSESSMENT: The patient is a 57-year-old man with insulin-dependent diabetes mellitus with diabetic neuropathy, hypertension, hyperlipidemia, and history of right lower extremity osteomyelitis with methicillin-resistant Staphylococcus aureus bacteremia who presented to the [facility] with several day history of increasing right foot pain, edema and erythema who was now status post operative debridement of right foot secondary to gangrene with subcutaneous gas formation and osteomyelitis. PLAN: 1. Osteomyelitis of the right foot. Input from Dr. Wilson and Dr. Lane of Podiatry noted and appreciated. Continue with postoperative care as per the podiatric team. Input from Dr. Adams and Dr. eHath also noted and greatly appreciated and the patient remains on meropenem 500 mg IV q. 8 hours and linezolid 600 mg IV q. 12 hours. We will continue to monitor for fever and leukocytosis. Continue with Tylenol as needed for fever. We will await final culture reports. 2. Severe sepsis secondary to osteomyelitis of the right foot. Continue with care as per number 1. We will await final culture reports. 3. Acute kidney injury, etiology likely secondary to prerenal azotemia in the setting of poor p.o. intake and severe sepsis. Morning labs demonstrate resolution of kidney dysfunction. We will continue with normal saline at 100 mL per hour. Continue to monitor renal function daily and strict in's and out's. 4. Hyponatremia, etiology likely secondary to poor p.o. intake. Labs demonstrate favorably trending sodium since admission with morning labs demonstrating the serum sodium of 131. Continue to encourage p.o. intake and continue with IV fluids hydration as above. 5. Hypertension. Blood pressure remains stable off antihypertensives. We will continue to monitor hemodynamics and resume Ramipril 2.5 mg p.o. daily if needed and provided that renal function remains stable. 6. Hyperlipidemia. Continue with Lipitor 20 mg p.o. daily. 7. Insulin-dependant diabetes mellitus with diabetic neuropathy. Continue Humalog 70/30 at 25 units sc q.a.m., and Lantus 40 units sc b.i.d. 8. Anxiety disorder. Continue with Xanax 1 mg p.o. b.i.d. 9. Paroxysmal atrial fibrillation status post ablation. Continue with Diltiazem 240 mg p.o. daily. We will continue to hold Eliquis pending okay by the podiatric team. 10. Sciatica. Continue with oxycodone 30 mg p.o. q. 4 hours p.r.n. pain. 11. Dysphagia. The patient reports several weeks history of dysphagia. We will request formal swallow evaluation. 12. Prophylaxis. Continue Protonix 40 mg p.o. daily. We will continue to hold anticoagulation until okay by podiatric team. CODE STATUS: FULL CODE. Ty Monterroso MD MTDShyam
--- NOTE | 2017-07-03 17:00 | CARD ---
APPROVED REPORT EXAM: Two-dimensional and M-mode echocardiogram with Doppler and color Doppler. INDICATION ENDOCARDITIS 2D DIMENSIONS IVSd1.1 (0.7-1.1cm)LVDd5.1 (3.9-5.9cm) PWd1.2 (0.7-1.1cm)LVDs3.5 (2.5-4.0cm) FS (%) 30.9 %LVEF (%)58.2 (>50%) M-Mode DIMENSIONS Aortic Root4.00 (2.2-3.7cm)Aortic Cusp Exc.2.00 (1.5-2.0cm) Aortic Valve AoV Peak Kfiwoepd610.0cm/Tim Peak GR.9mmHg Mitral Valve MV E Ftanuslw721.0cm/sMV A Cockgsll08.3cm/sE/A ratio2.4 Pulmonary Valve PV Peak Cconhazj97.4cm/sPV Peak Grad.4mmHg Tricuspid Valve TR Peak Ksdsqyvr242xz/sRAP MIZOTDLL02msNtYT Peak Gr.53mmHg [id number] LEFT VENTRICLE The left ventricle is normal size. There is normal left ventricular wall thickness. The left ventricular function is normal. The left ventricular ejection fraction is within the normal range. There is normal LV segmental wall motion. The left ventricular diastolic function is normal. RIGHT VENTRICLE The right ventricle is normal size. There is normal right ventricular wall thickness. The right ventricular systolic function is normal. ATRIA The left atrium size is normal. The right atrium size is normal. AORTIC VALVE The aortic valve is severely thickened, Cannot exclude aortic valvular vegetation. No aortic regurgitation is present. MITRAL VALVE The mitral valve is moderately thickened. Mitral regurgitation is trace. TRICUSPID VALVE There is moderate tricuspid regurgitation. There is moderate pulmonary hypertension. GREAT VESSELS The aortic root is normal in size. The IVC collapses <50% with inspiration. <Conclusion> The aortic valve is severely thickened, Cannot exclude aortic valvular vegetation. The left ventricle is normal size. There is normal left ventricular wall thickness. The left ventricular function is normal. The left ventricular ejection fraction is within the normal range. There is normal LV segmental wall motion. The left ventricular diastolic function is normal. There is moderate tricuspid regurgitation. There is moderate pulmonary hypertension.
--- NOTE | 2017-07-03 20:56 | US ---
PROCEDURE: Lower extremity YARELY exam HISTORY: Peripheral vascular disease with pain and ulceration. Diabetes PHYSICIAN(S): Roberto Farooq MD. FINDINGS: The right resting YARELY is normal, 1.17. Left resting YARELY is abnormally elevated, 1.57 The low thigh pressures and waveforms are relatively normal. The calf PVR waveforms augment normally. No significant gradients are noted across the thighs. The ankle and metatarsal waveforms are relatively normal and symmetric. No significant pressure gradients are noted across the lower legs. IMPRESSION: 1. Relatively normal YARELY and PVR examination at rest.
[2017-07-03] MEDS ORDERED: Vancomycin 1.4 GM in Sodium Chloride 0.9% 250 ML IVPB SCH (22:00)
[2017-07-03] MEDS ORDERED: DAPTOmycin 500 mg Inj (Cubicin) IV SCH (22:15)
--- NOTE | 2017-07-04 00:02 | PN ---
DATE: 07/03/2017 TIME: 0700 hours. LOCATION: Room 277, bed 2. SUBJECTIVE: The patient is in bed this morning, alert and oriented x3, continued to complain of significant pain in the right lower extremity emanating from the knee down to the ankle and foot. He continues to complain of the pain equal to or greater than 24 hours prior. He is now status post I and D of a osteomyelitis with gas abscess on the right foot by approximately 36 hours. He has been on IV antibiotic since that time with saline wet-to-dry packing gauze dressings once a day. He still maintains a cough and reports some expectorant. At the time, he is still receiving a transfusion of packed red blood cells. The patient reports pain with the use of the limb and also his sciatic pain and he reports not getting out of bed, occasionally sitting up with the leg over the side of the bed. PHYSICAL EXAMINATION VITAL SIGNS: His morning vital signs are stable. GENERAL: He appears weak and somewhat agitated with his pain in the right leg and foot. He is conversational and appears to be in no acute distress. EXTREMITIES: With careful manipulation because of his pain, the dressings on the right foot are removed. The edema and erythema of the right foot, ankle, and lower leg appear minimally changed. There is no odor coming from the wound after the packing is removed. The wound margins and the foot are palpated and expressed and there is no evidence of any brooke pus or discharge. The wound margins and bed are bleeding normally. LABORATORY DATA: White count is still approximately 12 with a minimally changed differential. There has been no new x-ray imaging and we are still awaiting the culture reports from the operation 36 hours ago. IMPRESSION: This is a 57-year-old male with advanced diabetes and neuropathy, hypertension, hyperlipidemia, and atrial fibrillation with continuing cellulitis and osteomyelitis of the right foot and 2 open wounds on the dorsal and plantar of the foot. PLAN: The patient will continue his IV antibiotic per infectious disease and his medical management by Dr. Monterroso. We will discuss the possibility of additional wound debridement with Dr. Monterroso later today. We will order repeat foot and ankle x-rays to evaluate for any new areas of gas extension. We reapplied a saline wet-to-dry gauze packing into both wounds and dry sterile dressing today. I will be in contact with the resident to perform morning dressing changes tomorrow and he will call me when he is in attendance in the a.m. and we will then decide on my next evaluation at what time and level of further debridement to perform. Roberto Lane DPM
[2017-07-04] MEDS: oxyCODONE 30 mg Immediate Release Tab PO PRN ×2 (02:33→10:56)
--- NOTE | 2017-07-04 02:57 | CON ---
DATE: 07/02/2017 TIME: 1300 hours. LOCATION: Room 277, bed 2. REASON FOR CONSULTATION: The patient was admitted with acute abscess and gas osteomyelitis of the right foot on the prior day and underwent emergency I and D by Dr. Wilson, my covering doctor and was admitted for continued medical and wound care. HISTORY OF PRESENT ILLNESS: This is a 57-year-old white male patient known to me for many years who lives over half a year in [place] and sometime up here in [place]. He has a history of multiple foot surgeries and partial amputations over the years because of diabetes with significant diabetic neuropathy. He presented up from [place] on 06/18/2017 with a history of ulceration on the 3rd toe and the sole of the right foot treated in [place] by several different doctors with no significant improvement, told he would require some significant surgery and he preferred to come back to [place] at that time. He underwent x-rays and CT at the [facility] on 06/20/2017. He was performing dressing changes that first week and awaiting culture results from the visit on 06/18/2017. We went on vacation on 06/23/2017 and towards the end of that week on 06/29/2017, he started reporting pain and swelling in the foot and on 07/01/2017, he presented to the ER with the current emergency. This morning, he reports significant pain almost neuropathic style with pain that emanates from just above the knee joint down into the ankle and to the foot. He responds antalgically to dressing removal and motion of the leg. He reports the pain today at the 12-hour post I and D autumn to be worse than on Sunday when he was admitted to the hospital. PAST MEDICAL HISTORY: Obtained and it is positive for HTN, HLD, anxiety, atrial fibrillation, GERD, diabetes, peripheral neuropathy, Charcot foot with prior foot infections, osteomyelitis and previous amputations. PAST SURGICAL HISTORY: Positive for multiple foot and ankle surgeries over the past 20 years including multiple digital and partial amputations. FAMILY AND SOCIAL HISTORY: [place], he spends various amount of time in [place] not regularly in [place]. He denies tobacco use. Denies recreational drug use. ALLERGIES: REPORTS NO KNOWN DRUG ALLERGIES. MEDICATIONS: The in-hospital medication list is reviewed. It includes anticoagulation with Eliquis for his AFib and he is on IV antibiotic per infectious disease. REVIEW OF SYSTEMS: Obtained. The patient has some apparent coughing and sputum of some kind. He reports a history of major workup for possible lung CA in [place] reporting it to be all of the tests have been negative so far. He reports significant neuropathic pain that seems to be exacerbating in the right lower extremity. PHYSICAL EXAMINATION GENERAL: The patient is alert and oriented x3, sitting in bed this morning during my visit. He appears to be in no acute distress, but a great deal of discomfort. VITAL SIGNS: Currently stable. EXTREMITIES: The lower extremity appears warm. As my first visit, not seen the patient yesterday, I cannot tell if the cellulitis is improved or not, the patient seems to indicate that it is the same. There is edema and heat and erythema from the midcalf down to the toes of the right foot. The foot is very tender to manipulate with range of motion and/or elevation and/or touch mostly in the area of the calf and ankle. The patient has dressings on the right foot which are all removed. There is non-iodoform packing in the wound which is removed from both the dorsal and plantar wound. There is approximately a 5 cm incision overlying the first inner space down to the first metatarsal cuneiform articulation. When the packing is removed, the bone is visualized at the depth of the wound. The plantar space underlying the same anatomic location with the packing removed exposes the base of the cuneiform metatarsal in the wound bed. At this point, Sunday, there is no odor. With gentle manipulation of the mid foot, there is no expressible pus or discharge. The wound edges and margins are bleeding at this time with manipulation. LABORATORY DATA: Reviewed. The white count today 07/02/2017 is 12.4 down from his admission white count of 25.8. There is no significant change in the last 12 hours with his differential. X-rays were obtained from the ER upon admission prior to I and D reveal findings of gas in the dorsal and medial tissues overlying the first TMT location with fracture bodies involving the base of the first metatarsal cuneiform articulation and evidence of periosteal elevation on the first metatarsal and cuneiform. CT indicates extensive soft tissue edema with some pockets of gas in the mid foot and in the intramedullary area of the proximal half of the first metatarsal. ASSESSMENT: A 57-year-old insulin-dependent diabetic with advanced diabetic neuropathy, multiple comorbidities, acute cellulitis with gas osteomyelitis of the first ray of the right foot status post 12 plus hours incision and drainage in the operating room on the dorsal and plantar aspect of the infection with packing. PLAN: The case was discussed this morning with Dr. Wilson who called handing back care to me after my vacation who suggested that the bony defects may require additional debridement as his I and D was aimed clearly at stemming the acute cellulitis and opening up the trapped gas and pus on the abscess, I concur with her. The patient will undergo daily wound changes with saline wet-to-dry packing. Continue IV antibiotic per infectious disease, undergo continued medical workup specifically with regard to his general health and pulmonary status in light of unknown status of his pulmonary cancer workup. We will anticipate return to the OR over the next few days for additional debridement, trying to improve his osteomyelitis picture. Roberto Lane DPM
[2017-07-04] MEDS: Sodium Chloride 0.9% 1,000 ML IV SCH ×4 (03:30→19:03)
[2017-07-04] MEDS: Pantoprazole 40 mg EC Tab PO SCH (05:10)
[2017-07-04] MEDS: Meropenem 500 MG in Sodium Chloride 0.9% 100 ML IVPB SCH ×3 (05:11→21:34)
[2017-07-04] MEDS: Albuterol-Ipratrop 3 mg / 0.5 (3 ml) UD IH SCH ×5 (05:42→23:35)
[2017-07-04 07:36] LABS: BASO # 0.02 K/mm3 (0.0-2.0); BASO % 0.2 % (0.0-3.0); EOS # 0.2 (0.0-0.7); EOS % 1.7 % (1.5-5.0); GRAN # 9.19 (1.4-6.5); GRAN % 76.1 % (50.0-68.0); LYMPH # 1.4 (1.2-3.4); LYMPH % 11.9 % (22.0-35.0); MEAN CORPUSCULAR HEMOGLOBIN 25.3 pg (25.0-35.0); MEAN CORPUSCULAR HGB CONC 32.1 g/dl (31.0-37.0); MONO # 1.2 (0.1-0.6); MONO % 10.1 % (1.0-6.0); RED CELL DISTRIBUTION WIDTH 15.7 % (11.5-14.5); WHITE BLOOD COUNT 12.1 10^3/ul (4.5-11.0)
[2017-07-04 07:43] LABS: ALB/GLOB RATIO 0.6 (1.1-1.8); ALKALINE PHOSPHATASE 208 U/L (38-133); ALT/SGPT 39 U/L (7-56); AST/SGOT 47 U/L (15-59); BILIRUBIN,TOTAL 0.3 mg/dL (0.2-1.3); BLOOD UREA NITROGEN 12 mg/dL (7-21); CALCIUM 8.4 mg/dL (8.4-10.5); CARBON DIOXIDE 27 mmol/L (21-33); CHLORIDE 98 mmol/L (98-107); GFR AFRICAN-AMERICAN > 60; GLUCOSE,RANDOM 168 mg/dL (70-110); POTASSIUM 4.5 mmol/L (3.6-5.0); SODIUM 132 mmol/L (132-148); TOTAL PROTEIN 7.6 g/dL (5.8-8.3)
[2017-07-04 07:44] LABS: INR 1.14 (0.93-1.08)
[2017-07-04] MEDS: Insulin Lispro 1 UNITS/0.01 ML SC SCH (08:00)
[2017-07-04] MEDS: Insulin Reg-HIGH-Coverage SC SCH ×4 (08:03→22:14)
--- NOTE | 2017-07-04 10:46 | CP.PCM.PN ---
Subjective - Date & Time of Evaluation Date of Evaluation: 07/04/17 Time of Evaluation: 10:41 - Subjective Subjective: 57 year old male patient 3 days s/p right foot incision and drainage was seen at bedside this morning. Patient was resting comfortably in bed with no acute overnight distress. Dressing to right foot appears clean dry and intact. Patient complains of pain to right foot. He admits to n/v/f/c/sob. Objective - Vital Signs/Intake and Output Vital Signs (last 24 hours): Temp Pulse Resp BP Pulse Ox 97.4 F L 53 L 20 130/64 93 L 07/04/17 05:51 07/04/17 05:51 07/04/17 05:51 07/04/17 05:51 07/04/17 05:51 Intake and Output: 07/04/17 07/04/17 06:59 18:59 Intake Total 3540 Output Total 1200 Balance 2340 - Medications Medications: Current Medications Acetaminophen (Tylenol 325mg Tab) 650 mg PO Q4H PRN PRN Reason: Fever >100.4 F Last Admin: 07/04/17 00:01 Dose: 650 mg Albuterol/Ipratropium (Duoneb 3 Mg/0.5 Mg (3 Ml) Ud) 3 ml IH [id number] [facility] Last Admin: 07/04/17 08:08 Dose: Not Given Albuterol/Ipratropium (Duoneb 3 Mg/0.5 Mg (3 Ml) Ud) 3 ml IH Q2H PRN PRN Reason: Shortness of Breath Alprazolam (Xanax) 1 mg PO BID PRN; Protocol PRN Reason: Anxiety Last Admin: 07/04/17 00:42 Dose: 1 mg Apixaban (Eliquis) 5 mg PO BID [facility] PRN Reason: Protocol Last Admin: 07/01/17 18:25 Dose: Not Given Atorvastatin Calcium (Lipitor) 20 mg PO DIN [facility] Last Admin: 07/03/17 17:30 Dose: 20 mg Diltiazem HCl (Cardizem Cd) 240 mg PO DAILY [facility] Last Admin: 07/03/17 10:49 Dose: 240 mg Docusate Sodium (Colace) 100 mg PO BID [facility] Last Admin: 07/03/17 17:30 Dose: 100 mg Furosemide (Lasix) 20 mg PO DAILY [facility] Last Admin: 07/03/17 10:49 Dose: 20 mg Meropenem 500 mg/ Sodium (Chloride) 100 mls @ 100 mls/hr IVPB Q8 [facility] PRN Reason: Protocol Stop: 07/10/17 22:01 Last Admin: 07/04/17 05:11 Dose: 100 mls/hr Sodium Chloride (Sodium Chloride 0.9%) 1,000 mls @ 100 mls/hr IV .Q10H [facility] Last Admin: 07/04/17 05:11 Dose: 100 mls/hr Daptomycin 540 mg/ Sodium (Chloride) 100 mls @ 200 mls/hr IV Q24H [facility] Stop: 07/13/17 22:16 Last Admin: 07/04/17 00:02 Dose: 200 mls/hr Insulin Detemir (Levemir) 40 unit SC BID [facility] Last Admin: 07/03/17 17:30 Dose: 40 unit Insulin Human Lispro (Humalog) 25 units SC BRK [facility] Last Admin: 07/04/17 08:00 Dose: Not Given Insulin Human Regular (Humulin R High) 0 units SC ACHS [facility] PRN Reason: Protocol Last Admin: 07/04/17 08:03 Dose: Not Given Oxycodone HCl (Oxycodone Immediate Release Tab) 30 mg PO Q4H PRN PRN Reason: Pain, severe (8-10) Last Admin: 07/04/17 02:33 Dose: 30 mg Pantoprazole Sodium (Protonix Ec Tab) 40 mg PO 0600 [facility] Last Admin: 07/04/17 05:10 Dose: 40 mg - Labs Labs: 07/04/17 06:30 07/04/17 06:30 PT 12.3 Seconds (9.9-11.8) H 07/04/17 06:30 INR 1.14 (0.93-1.08) H 07/04/17 06:30 APTT 42.9 Seconds (23.7-30.8) H 07/01/17 13:08 - Constitutional Appears: Well, Non-toxic, No Acute Distress - Head Exam Head Exam: ATRAUMATIC - Extremities Exam Additional comments: Right lower extremity focused exam: Derm: Open wound noted to dorsum of right foot measuring 5cmx 1cm x 1.5cm with mix of fibrotic and granular base. No purulent drainage noted. Moderate amount of sero-sanguinous drainage is noted. No mal-odor noted. Probes to bone. Erythema appears decreased. Another open wound noted to plantar aspect of right foot measuring 3.5cm x 3.5cm x 0.3cm with 80% granular base 20% fibrotic. Mild serous drainage. No purulent discharge. No mal-odor, No PTB. Slight maceration noted to wound edges noted. Vasc:DP and PT pulses non-palpable. Skin temperature increased to the right lower extremity Neuro: Gross sensation diminished Ortho: Pain on palpation to right foot and leg - Neurological Exam Neurological Exam: Alert, Awake - Skin Skin Exam: Normal Color, Warm Assessment and Plan - Assessment and Plan (Free Text) Assessment: 57 year old male patient 3 days s/p right foot incisions and drainage Plan: Patient examined and evaluated Discussed in detail with attending, Dr. Lane Chart, labs, vitals reviewed;WBC 12.1 Right foot WCX back as MRSA Right foot cleansed with normal sterile saline, packed with wet to dry dressing to dorsum and 1 inch iodoform packing to plantar aspect Right foot dressed with ABD, Kerlix Continue IV Abx as per ID Podiatry will follow patient while in house
[2017-07-04] MEDS: Insulin Detemir 100 units/ml Vial (Levemir) SC SCH ×2 (10:47→17:57)
[2017-07-04] MEDS: diltiaZEM 240 mg/24 Hours CD Cap PO SCH (10:47)
--- NOTE | 2017-07-04 15:17 | CP.PCM.PN ---
Subjective - Date & Time of Evaluation Date of Evaluation: 07/04/17 Time of Evaluation: 10:15 - Subjective Subjective: Still with pain in his right foot, also in his right knee, no fevers overnight, no SOB, no diarrhea. Objective - Vital Signs/Intake and Output Vital Signs (last 24 hours): Temp Pulse Resp BP Pulse Ox 97.4 F L 53 L 20 130/64 93 L 07/04/17 05:51 07/04/17 05:51 07/04/17 05:51 07/04/17 05:51 07/04/17 05:51 Intake and Output: 07/04/17 07/04/17 06:59 18:59 Intake Total 3540 Output Total 1200 Balance 2340 - Medications Medications: Current Medications Acetaminophen (Tylenol 325mg Tab) 650 mg PO Q4H PRN PRN Reason: Fever >100.4 F Last Admin: 07/04/17 00:01 Dose: 650 mg Albuterol/Ipratropium (Duoneb 3 Mg/0.5 Mg (3 Ml) Ud) 3 ml IH [id number] [facility] Last Admin: 07/04/17 05:42 Dose: Not Given Albuterol/Ipratropium (Duoneb 3 Mg/0.5 Mg (3 Ml) Ud) 3 ml IH Q2H PRN PRN Reason: Shortness of Breath Alprazolam (Xanax) 1 mg PO BID PRN; Protocol PRN Reason: Anxiety Last Admin: 07/04/17 00:42 Dose: 1 mg Apixaban (Eliquis) 5 mg PO BID POWER PRN Reason: Protocol Last Admin: 07/01/17 18:25 Dose: Not Given Atorvastatin Calcium (Lipitor) 20 mg PO DIN [facility] Last Admin: 07/03/17 17:30 Dose: 20 mg Diltiazem HCl (Cardizem Cd) 240 mg PO DAILY [facility] Last Admin: 07/03/17 10:49 Dose: 240 mg Docusate Sodium (Colace) 100 mg PO BID [facility] Last Admin: 07/03/17 17:30 Dose: 100 mg Furosemide (Lasix) 20 mg PO DAILY [facility] Last Admin: 07/03/17 10:49 Dose: 20 mg Meropenem 500 mg/ Sodium (Chloride) 100 mls @ 100 mls/hr IVPB Q8 POWER PRN Reason: Protocol Stop: 07/10/17 22:01 Last Admin: 07/04/17 05:11 Dose: 100 mls/hr Sodium Chloride (Sodium Chloride 0.9%) 1,000 mls @ 100 mls/hr IV .Q10H [facility] Last Admin: 07/04/17 05:11 Dose: 100 mls/hr Daptomycin 540 mg/ Sodium (Chloride) 100 mls @ 200 mls/hr IV Q24H [facility] Stop: 07/13/17 22:16 Last Admin: 07/04/17 00:02 Dose: 200 mls/hr Insulin Detemir (Levemir) 40 unit SC BID [facility] Last Admin: 07/03/17 17:30 Dose: 40 unit Insulin Human Lispro (Humalog) 25 units SC BRK [facility] Last Admin: 07/03/17 08:41 Dose: Not Given Insulin Human Regular (Humulin R High) 0 units SC ACHS [facility] PRN Reason: Protocol Last Admin: 07/03/17 22:00 Dose: Not Given Oxycodone HCl (Oxycodone Immediate Release Tab) 30 mg PO Q4H PRN PRN Reason: Pain, severe (8-10) Last Admin: 07/04/17 02:33 Dose: 30 mg Pantoprazole Sodium (Protonix Ec Tab) 40 mg PO 0600 [facility] Last Admin: 07/04/17 05:10 Dose: 40 mg - Labs Labs: 07/03/17 07:00 07/03/17 07:00 PT 12.5 Seconds (9.9-11.8) H 07/03/17 07:00 INR 1.16 (0.93-1.08) H 07/03/17 07:00 APTT 42.9 Seconds (23.7-30.8) H 07/01/17 13:08 - Constitutional Appears: Non-toxic, No Acute Distress - Head Exam Head Exam: NORMAL INSPECTION - ENT Exam ENT Exam: Mucous Membranes Moist - Neck Exam Neck Exam: absent: Meningismus - Respiratory Exam Respiratory Exam: Decreased Breath Sounds - Cardiovascular Exam Cardiovascular Exam: +S1, +S2 - GI/Abdominal Exam GI & Abdominal Exam: Soft. 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 associated with a chronic plantar ulcer S/P debridement POD #3, with associated MRSA bacteremia (and MRSA also found in the foot cx); patient with thickened aortic valve, should rule out endocarditis HTN DM GERD peripheral neuropathy history of cardiac ablation history of left hallux partial amputation peripheral vascular disease Plan changed Zyvox to Daptomycin (patient is refusing Vancomycin even after explanation that he can only go deaf if the levels are not monitored properly and exceeds level of 20) and continue Merrem; patient may need further debdridement follow up repeat blood cx Discussed with Dr. Domínguez - may need ANJU since 2D echo showed thickened aortic valves and cannot rule out vegetations will also get MRI of right knee will continue to monitor clinically
--- NOTE | 2017-07-04 15:55 | PN ---
DAILY PROGRESS NOTE DATE: SUBJECTIVE: The patient was seen and examined at bedside on the telemetry rolle. No acute events overnight. He remains afebrile and hemodynamically stable. The patient continues to endorse significant right lower extremity pain particularly at the surgical site and with motion. He also continues to endorse mild dyspnea, but otherwise offers no complaints. Of note, the patient had a transthoracic echocardiogram, which demonstrated a severely thickened aortic valve with possibility of aortic valve vegetation, but was otherwise largely unremarkable. OBJECTIVE: GENERAL: Frail man sitting up in his chair in moderate distress secondary to right foot pain. VITAL SIGNS: Temperature 97.4, pulse 53, blood pressure 130/64, respiratory rate 20, and oxygen saturation 93% on room air. HEENT: PERRL. EOMI. No scleral icterus. Mild conjunctival pallor is noted. NECK: No JVD. LUNGS: Clear to auscultation. CARDIOVASCULAR: Regular rate and rhythm. Normal S1 and S2. ABDOMEN: Normoactive bowel sounds, soft, nontender, and nondistended. EXTREMITIES: Right lower extremity with surgical dressing in place with erythema and edema up to the knee. Left lower extremity without edema. NEUROLOGIC: Awake, alert, and oriented x3. No focal motor deficits. LABORATORY DATA: WBC 12.1 with 76% neutrophils, hemoglobin 9.3, hematocrit 29, and platelets 480. Chemistry reviewed and largely unremarkable. Blood cultures with Staph aureus with sensitivities pending. Wound culture with Staph aureus with sensitivities pending. DIAGNOSTIC STUDIES: Transthoracic echocardiogram demonstrates a severely thickened aortic valve with possible aortic valvular vegetation and normal ejection fraction. ASSESSMENT: The patient is a 57-year-old man with insulin-dependent diabetes mellitus with diabetic neuropathy, hypertension, hyperlipidemia, and history of right lower extremity osteomyelitis with history of methicillin-resistant Staphylococcus aureus bacteremia who presented to [facility] with several-day history of increasing right foot pain, edema, and erythema who is now status post operative debridement of right foot secondary to gangrene with osteomyelitis. PLAN: 1. Osteomyelitis of the right foot. Input from Dr. Lane of podiatry noted and appreciated. Continue with postoperative care as per the podiatric team. Input from Dr. Heath and Dr. Adams of infectious disease noted and appreciated, and the patient remains on daptomycin 540 mg IV daily and meropenem 500 mg IV q.8 hours. Continue to monitor for fever and leukocytosis. Continue with Tylenol as needed for fever. 2. Severe sepsis secondary to osteomyelitis of the right foot. Continue with care as per #1. 3. Questionable aortic valve vegetation. Transthoracic echocardiogram reviewed with the findings as described above. This is of concern because the patient does have a history of MRSA bacteremia back in 2014, and again presented with osteomyelitis of the right lower extremity with Staph aureus bacteremia. The patient has also been endorsing worsening dyspnea over the last several weeks. We will consult Dr. Simental of cardiology for further evaluation and to assess for possible transesophageal echocardiogram. 4. Acute kidney injury, resolved, etiology was likely secondary to prerenal azotemia in the setting of sepsis and poor p.o. intake. Continue to encourage p.o. intake and continue with IV fluid hydration. 5. Hyponatremia, resolved, etiology was again likely secondary to poor p.o. intake. Continue to encourage p.o. intake and continue with IV fluid hydration as above. 6. Hypertension. Blood pressure remained stable. Continue with diltiazem 240 mg p.o. daily. 7. Hyperlipidemia. Continue with Lipitor 20 mg p.o. daily. 8. Insulin-dependent diabetes mellitus with diabetic neuropathy. Continue with Humalog 70/30, 25 units subcutaneously q.a.m. and Lantus 40 units subcutaneously b.i.d. 9. Anxiety disorder. Continue with Xanax 1 mg p.o. b.i.d. 10. Paroxysmal atrial fibrillation, status post ablation. Continue with diltiazem 240 mg p.o. daily. Eliquis remains on hold, pending approval by podiatry team. 11. Sciatica. Continue with oxycodone 30 mg p.o. q.4 hours p.r.n. pain. 12. Dysphagia. The patient is pending ENT evaluation. 13. Prophylaxis. Continue Protonix 40 mg p.o. daily. Anticoagulation on hold, pending approval by podiatry team. CODE STATUS: FULL CODE. Ty Monterroso MD
[2017-07-05] MEDS: oxyCODONE 30 mg Immediate Release Tab PO PRN ×4 (00:12→22:12)
--- NOTE | 2017-07-05 00:43 | CON ---
DATE: 07/04/2017 Patient's room 277, bed 2. REASON FOR CONSULTATION: Osteomyelitis, rule out endocarditis. HISTORY OF PRESENT ILLNESS: A 57-year-old male, known case of diabetes mellitus, diabetic neuropathy, hypertension, hyperlipidemia, right lower extremity cellulitis, and osteomyelitis of the right first toe with MRSA bacteremia. Blood culture positive, methicillin-resistant Staphylococcus aureus. A consult had been requested to rule out endocarditis. Patient denies any chest pain, shortness of breath, or palpitations. PAST MEDICAL HISTORY: Positive for diabetes mellitus, hyperlipidemia, anxiety, hypertension, diabetic neuropathy, paroxysmal atrial fibrillation. Patient has ablation for atrial fibrillation twice. Also, has a Achilles tendon tear. ALLERGIES: Denies any allergies. PERSONAL HISTORY: Denies smoking or drinking. FAMILY HISTORY: Father had DC at age 70. MEDICATIONS AT HOME: Patient was taking insulin. Eliquis 5 mg b.i.d., Lasix 20 daily, Protonix 40 daily, ramipril 2.5 mg daily, diltiazem 240 p.o. daily, Xanax 1 mg b.i.d., oxycodone 30 mg p.o. q.4 hours p.r.n. REVIEW OF SYSTEMS: All other systems reviewed, positive mentioned in the history, otherwise negative. PHYSICAL EXAMINATION: VITAL SIGNS: Blood pressure 132/70, respirations 20, pulse 84, and temperature 97.4. HEENT: Head is normocephalic. Eyes; pupils normal. Conjunctivae slightly pale. NECK: JVP low. Carotids equal. Thorax; AP diameter normal. LUNGS: Clear. CARDIOVASCULAR: S1 and S2. EXTREMITIES: The patient has edema on the right leg. He has a dressing due to osteomyelitis on the right foot. LABORATORY DATA: WBC 12.1 on 07/01/2017, WBC of 25.8, hemoglobin 9.3, hematocrit 29.0, platelet 480. Sodium 132, potassium 4.5, BUN 12, creatinine 0.6, random sugar 141. AST and ALT normal. Total protein and albumin normal. Echo showed normal sinus rhythm. Blood cultures showed methicillin-resistant Staphylococcus aureus blood cultures. Echo, as mentioned, normal LV size, normal LV function, calcific aortic valve. DIAGNOSES: 1. Methicillin-resistant Staphylococcus aureus sepsis. 2. Osteomyelitis of the first toe of the right foot. 3. Diabetes mellitus. 4. Diabetic neuropathy. 5. Hypertension. 6. Hyperlipidemia. 7. Paroxysmal atrial fibrillation. 8. History of ablation x2. PLAN: We will try to arrange transesophageal echo for tomorrow morning [address] Preston and in the meantime, we will continue with the present therapy which is Cardizem CD 240 p.o. daily, daptomycin 540 mg IV q.24 hours, DuoNeb hand nebulizer therapy, Eliquis 5 mg b.i.d., furosemide 20 daily, insulin as ordered, Merrem IV 500 mg q.8 hours, Protonix 40. Patient is getting normal saline 100 mL an hour, Xanax 1 mg p.o. b.i.d. p.r.n. We will follow with you. Shilo Domínguez MD
[2017-07-05] MEDS: Albuterol-Ipratrop 3 mg / 0.5 (3 ml) UD IH SCH ×6 (05:01→23:17)
[2017-07-05] MEDS: Sodium Chloride 0.9% 1,000 ML IV SCH ×3 (05:35→17:13)
[2017-07-05] MEDS: Meropenem 500 MG in Sodium Chloride 0.9% 100 ML IVPB SCH ×3 (05:39→21:50)
[2017-07-05] MEDS: Pantoprazole 40 mg EC Tab PO SCH (05:39)
[2017-07-05 07:23] LABS: BASO # 0.03 K/mm3 (0.0-2.0); BASO % 0.3 % (0.0-3.0); EOS # 0.2 (0.0-0.7); EOS % 1.6 % (1.5-5.0); GRAN # 8.88 (1.4-6.5); GRAN % 77.4 % (50.0-68.0); HEMATOCRIT 29.2 % (42.0-52.0); LYMPH # 1.4 (1.2-3.4); LYMPH % 11.9 % (22.0-35.0); MEAN CELL VOLUME 79.1 fl (80.0-105.0); MEAN CORPUSCULAR HEMOGLOBIN 24.9 pg (25.0-35.0); MEAN CORPUSCULAR HGB CONC 31.5 g/dl (31.0-37.0); MEAN PLATELET VOLUME 7.8 fl (7.0-11.0); MONO % 8.8 % (1.0-6.0); RED CELL DISTRIBUTION WIDTH 15.9 % (11.5-14.5); WHITE BLOOD COUNT 11.5 10^3/ul (4.5-11.0)
[2017-07-05 07:33] LABS: ALB/GLOB RATIO 0.6 (1.1-1.8); ALKALINE PHOSPHATASE 209 U/L (38-133); ALT/SGPT 35 U/L (7-56); AST/SGOT 56 U/L (15-59); BILIRUBIN,TOTAL 0.5 mg/dL (0.2-1.3); BLOOD UREA NITROGEN 10 mg/dL (7-21); CALCIUM 8.7 mg/dL (8.4-10.5); CARBON DIOXIDE 29 mmol/L (21-33); CHLORIDE 98 mmol/L (95-110); GFR AFRICAN-AMERICAN > 60; GLUCOSE,RANDOM 97 mg/dL (70-110); POTASSIUM 5.3 mmol/L (3.6-5.0); SODIUM 133 mmol/L (132-148); TOTAL PROTEIN 7.5 g/dL (5.8-8.3)
[2017-07-05 07:39] LABS: INR 1.17 (0.93-1.08)
[2017-07-05] MEDS: diltiaZEM 240 mg/24 Hours CD Cap PO SCH (09:06)
[2017-07-05] MEDS: Insulin Lispro 1 UNITS/0.01 ML SC SCH ×2 (10:01→11:47)
[2017-07-05] MEDS: Insulin Reg-HIGH-Coverage SC SCH ×4 (10:01→22:07)
[2017-07-05] MEDS: Insulin Detemir 100 units/ml Vial (Levemir) SC SCH ×2 (10:03→18:48)
--- NOTE | 2017-07-05 10:36 | CP.PCM.PN ---
Subjective - Date & Time of Evaluation Date of Evaluation: 07/05/17 Time of Evaluation: 09:05 - Subjective Subjective: Still with right foot and knee pain, no fevers overnight, otherwise feeling better. Objective - Vital Signs/Intake and Output Vital Signs (last 24 hours): Temp Pulse Resp BP Pulse Ox 99.3 F 82 20 132/60 93 L 07/05/17 00:01 07/05/17 02:00 07/05/17 00:01 07/05/17 00:01 07/04/17 05:51 Intake and Output: 07/04/17 07/05/17 18:59 06:59 Intake Total 240 Output Total 300 Balance -60 - Medications Medications: Current Medications Acetaminophen (Tylenol 325mg Tab) 650 mg PO Q4H PRN PRN Reason: Fever >100.4 F Last Admin: 07/05/17 03:10 Dose: 650 mg Albuterol/Ipratropium (Duoneb 3 Mg/0.5 Mg (3 Ml) Ud) 3 ml IH [id number] [facility] Last Admin: 07/05/17 05:01 Dose: Not Given Albuterol/Ipratropium (Duoneb 3 Mg/0.5 Mg (3 Ml) Ud) 3 ml IH Q2H PRN PRN Reason: Shortness of Breath Alprazolam (Xanax) 1 mg PO BID PRN; Protocol PRN Reason: Anxiety Last Admin: 07/05/17 01:46 Dose: 1 mg Apixaban (Eliquis) 5 mg PO BID POEWR PRN Reason: Protocol Last Admin: 07/04/17 17:57 Dose: 5 mg Atorvastatin Calcium (Lipitor) 20 mg PO DIN [facility] Last Admin: 07/04/17 17:57 Dose: 20 mg Diltiazem HCl (Cardizem Cd) 240 mg PO DAILY [facility] Last Admin: 07/04/17 10:47 Dose: 240 mg Docusate Sodium (Colace) 100 mg PO BID [facility] Last Admin: 07/04/17 17:57 Dose: 100 mg Furosemide (Lasix) 20 mg PO DAILY [facility] Last Admin: 07/04/17 10:47 Dose: 20 mg Meropenem 500 mg/ Sodium (Chloride) 100 mls @ 100 mls/hr IVPB Q8 POWER PRN Reason: Protocol Stop: 07/10/17 22:01 Last Admin: 07/05/17 05:39 Dose: 100 mls/hr Sodium Chloride (Sodium Chloride 0.9%) 1,000 mls @ 100 mls/hr IV .Q10H [facility] Last Admin: 07/05/17 06:21 Dose: Not Given Daptomycin 540 mg/ Sodium (Chloride) 100 mls @ 200 mls/hr IV Q24H [facility] Stop: 07/13/17 22:16 Last Admin: 07/04/17 22:55 Dose: 200 mls/hr Insulin Detemir (Levemir) 40 unit SC BID [facility] Last Admin: 07/04/17 17:57 Dose: 40 unit Insulin Human Lispro (Humalog) 25 units SC BRK [facility] Last Admin: 07/04/17 08:00 Dose: Not Given Insulin Human Regular (Humulin R High) 0 units SC ACHS [facility] PRN Reason: Protocol Last Admin: 07/04/17 22:14 Dose: Not Given Oxycodone HCl (Oxycodone Immediate Release Tab) 30 mg PO Q4H PRN PRN Reason: Pain, severe (8-10) Last Admin: 07/05/17 00:12 Dose: 30 mg Pantoprazole Sodium (Protonix Ec Tab) 40 mg PO 0600 [facility] Last Admin: 07/05/17 05:39 Dose: 40 mg - Labs Labs: 07/04/17 06:30 07/04/17 06:30 PT 12.3 Seconds (9.9-11.8) H 07/04/17 06:30 INR 1.14 (0.93-1.08) H 07/04/17 06:30 APTT 42.9 Seconds (23.7-30.8) H 07/01/17 13:08 - Constitutional Appears: Non-toxic, No Acute Distress - Head Exam Head Exam: NORMAL INSPECTION - ENT Exam ENT Exam: Mucous Membranes Moist - Neck Exam Neck Exam: absent: Lymphadenopathy, Meningismus - Respiratory Exam Respiratory Exam: Decreased Breath Sounds - Cardiovascular Exam Cardiovascular Exam: +S1, +S2 - GI/Abdominal Exam GI & Abdominal Exam: Soft. 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 osteomyelitis of the right foot associated with a chronic plantar ulcer S/P debridement POD #4, with associated MRSA bacteremia (and MRSA also found in the foot cx); patient with thickened aortic valve, should rule out endocarditis right knee swelling HTN DM GERD peripheral neuropathy history of cardiac ablation history of left hallux partial amputation peripheral vascular disease Plan changed Zyvox to Daptomycin (patient is refusing Vancomycin even after explanation that he can only go deaf if the levels are not monitored properly and exceeds level of 20) and continue Merrem (since the patient will go for further debdridement and may still have other bacteria in the foot) follow up repeat blood cx Discussed with Dr. Domínguez - for ANJU today since 2D echo showed thickened aortic valves and cannot rule out vegetations for possible re-debridement of right foot again today and will await OR findings follow up MRI of right knee will continue to monitor clinically
[2017-07-05] MEDS ORDERED: Propofol 10 mg/ml Inj (20 ML) ONE ×3 (10:57→18:27)
[2017-07-05] MEDS ORDERED: Lidocaine 2% Jelly (30 ml) ONE (11:14)
[2017-07-05] MEDS ORDERED: Sodium Chloride 0.9% 1,000 ML IV SCH ×2 (12:15→20:45)
--- NOTE | 2017-07-05 14:12 | PN ---
DATE: 07/05/2017 TIME OF PROGRESS NOTE: 0645 hours. LOCATION: Room 277, bed 2. SUBJECTIVE: The patient is sitting up in his side chair with his right foot elevated on the empty bed. When awakened, he becomes alert, and oriented x3. He continues to complain of pain in the right lower extremity which seems to center over the right anterior and medial knee compartment. There is tenderness with motion of the lower extremity again focusing at the knee. He reports moderate or improved pain in the ankle and foot. He is scheduled for a ANJU today at 11 o'clock and he is under the care of Dr. Domínguez. The right foot bandages were redressed last night by the nurses because the bandage displaced or came loose. OBJECTIVE: GENERAL: This is a visibly weak male patient in moderate distress mostly with continued right lower extremity pain. VITAL SIGNS: This morning are currently stable. EXTREMITIES: He continues to have erythema and cellulitis of the right lower extremity which goes up to the proximal tibial area. The coloration compared to 48 hours ago appears improved with less distention, but still cellulitic. The dressings are removed. The plantar dressing is granular, it is not packed and there is dorsal wound packing is removed and with manipulation and prodding that we can express a visible puss from the wound. There is no pain with palpation of the wound margins on the right foot unless an attempt is made to actually elevate or move the right leg and the knee. LABORATORY DATA: Laboratory studies are unchanged. He remains with the elevated WBC in the 12 count range. He remains on IV medications per infectious disease and they are awaiting the sensitivity from the Staphylococcus aureus wound cultures from Sunday. ASSESSMENT AND PLAN: A 57-year-old insulin dependent diabetic, hypertensive and hyperlipidemia with right lower extremity osteomyelitis and continued cellulitis of the right lower extremity with probable Methicillin-resistant Staphylococcus aureus bacteremia possibly affecting the valves of the heart. We discussed with the patient, the need to reopen the right foot and attempt to clean and drain more of the infection and since it is still continued to be puss producing. We are anxiously awaiting the results of the MRI of the right knee tomorrow since the patient is bacteremic. There is risk that the infection can seed in multiple location and foci. We will scheduled the patient as an add on tonight to the OR. We are going to put in an order to hold his Eliquis dosing for today and attempt to decrease blood loss during the incision and drainage of the right foot and I will discuss the plan to go to the OR tonight with Dr. Monterroso later this morning. Roberto Lane DPM
--- NOTE | 2017-07-05 14:27 | PN ---
SUBJECTIVE: The patient is seen and examined at bedside on the telemetry rolle. No acute events overnight. He remains afebrile and hemodynamically stable. The patient has been evaluated by Dr. Domínguez of Cardiology for transesophageal echocardiogram to rule out intracardiac vegetation given findings on transthoracic echocardiogram in the setting of MRSA bacteremia. This morning, the patient states he feels okay, but does report some dyspnea, which appears to be at its baseline, and otherwise offers no complaints. PHYSICAL EXAMINATION: VITAL SIGNS: Temperature 99.1, pulse 79, blood pressure 135/65, respiratory rate 20, and oxygen saturation 98% on room air. GENERAL: Frail man sitting up in his chair, in no apparent distress. HEENT: PERRL. EOMI. No scleral icterus. Mild conjunctival pallor is noted. NECK: No JVD. LUNGS: Clear to auscultation. CARDIOVASCULAR: Regular rate and rhythm. Normal S1 and S2. ABDOMEN: Normoactive bowel sounds, soft, nontender, and nondistended. EXTREMITIES: Right lower extremity with surgical dressing in place with erythema and edema to the mid king. Left lower extremity without edema. NEUROLOGIC: Awake, alert, and oriented x3. No focal motor deficits. LABORATORY DATA: WBC 11.5 with 77% neutrophils, hemoglobin 9.2, hematocrit 29, and platelets 452. Sodium 133, potassium 5.2, chloride 98, bicarbonate 29, BUN 10, creatinine 0.5, and glucose 97. Hepatitis A, B, and C serologies are negative. RPR is nonreactive. HIV is pending. Blood culture with MRSA bacteremia and wound culture with MRSA. Repeat blood cultures from 07/03/2017 with no growth to date. ASSESSMENT: The patient is a 57-year-old man with insulin-dependent diabetes mellitus with diabetic neuropathy, hypertension, hyperlipidemia, and history of right lower extremity osteomyelitis with history of methicillin-resistant Staphylococcus aureus bacteremia who presents to [facility] with a several-day history of increasing right foot pain, edema, and erythema who is status post operative debridement of right foot secondary to gas gangrene with osteomyelitis and with ongoing workup to rule out endocarditis. PLAN: 1. Osteomyelitis of the right foot. Input from Dr. Lane of Podiatry noted and appreciated and the patient may likely require repeat debridement. Input from Dr. Adams of Infectious Disease also noted and greatly appreciated and the patient remains on daptomycin 540 mg IV daily and meropenem 500 mg IV q.8 hours. 2. Severe sepsis secondary to osteomyelitis of the right foot, resolving, continue with care as per #1. 3. Questionable aortic valve vegetation, rule out endocarditis. Transthoracic echocardiograms have been reviewed and Dr. Domínguez of Cardiology has been consulted for evaluation for ANJU, which is scheduled later today. 4. Acute kidney injury, resolved. Continue to encourage p.o. intake. 5. Hyponatremia, resolved. Continue with IV fluid hydration and to encourage p.o. intake. 6. Hypertension. Blood pressure remains stable. Continue with diltiazem 240 mg p.o. daily. 7. Hyperlipidemia. Continue with Lipitor 20 mg p.o. daily. 8. Insulin-dependent diabetes mellitus with diabetic neuropathy. Continue with Humalog 70/30, 25 units subcutaneously q.a.m. and Lantus 40 units subcutaneously b.i.d. 9. Anxiety disorder. Continue with mg p.o. b.i.d. 10. Paroxysmal atrial fibrillation, status post ablation. Continue with diltiazem 240 mg p.o. daily. Eliquis remains on hold, pending okay as per podiatry team. 11. Sciatica. Continue with oxycodone 30 mg p.o. q.4 hours p.r.n. pain. 12. Prophylaxis. Continue with Protonix 40 mg p.o. daily. Anticoagulation on hold as per podiatry team as patient may likely require further operative debridement of his right lower extremity. CODE STATUS: Full code. Ty Monterroso MD
--- NOTE | 2017-07-05 17:18 | CARD ---
APPROVED REPORT EXAM: Transesophageal echocardiogram with color flow Doppler. INDICATION ENDOCARDITIS Reason For Test : Rule out endocarditis. PROCEDURE After obtaining informed consent, patient underwent transesophageal echo in the Echo Lab. Type of Sedation : Conscious Sedation Sedation was provided by anesthesiologist. Sedation was achieved with intravenously. Transesophageal probe was inserted and advanced into esophagus without difficulty. The ANJU was performed without complications. Throughout the procedure, the blood pressure, pulse oximetry, cardiac rhythm, and rate were monitored. The patient tolerated the procedure without adverse effects. Recovery from conscious sedation was uneventful and vital signs were stable. LEFT VENTRICLE The left ventricle is normal size. There is normal left ventricular wall thickness. The left ventricular function is normal. The left ventricular ejection fraction is within the normal range. There is normal LV segmental wall motion. RIGHT VENTRICLE The right ventricle is normal size. There is normal right ventricular wall thickness. The right ventricular systolic function is normal. ATRIA The left atrium size is normal. The right atrium size is normal. AORTIC VALVE The aortic valve is severely thickened, No vegitation seen No aortic regurgitation is present. MITRAL VALVE No Mitral valve vegitation seen There is no mitral valve stenosis. There is no mitral valve regurgitation noted. TRICUSPID VALVE There is no tricuspid valve vegitation <Conclusion> The aortic valve is severely thickened, No Aortic valve vegitation seen No aortic regurgitation is present. No Mitral or tricusped valve vegitation seen
[2017-07-05] MEDS ORDERED: Lidocaine 1% Inj (20ml) ONE ×2 (18:13→20:03)
[2017-07-05] MEDS ORDERED: Bupivacaine 0.5% Inj(30mL) ONE ×2 (18:13→20:03)
[2017-07-05] MEDS ORDERED: Lidocaine 2% Inj (20ml) ONE (18:27)
[2017-07-05] MEDS ORDERED: Midazolam 2 MG/2 ML VIAL ONE (18:27)
--- NOTE | 2017-07-05 18:28 | PN ---
DATE: 07/05/2017 LOCATION: The patient in room 277, bed 2. REASON FOR CONSULTATION: Osteomyelitis, staph sepsis, rule out endocarditis. SUBJECTIVE: The patient denies any chest pain, shortness of breath, or palpitation. PHYSICAL EXAMINATION: VITAL SIGNS: Blood pressure 121/65, respirations 18, pulse 61, temperature 99.1. HEENT: Head is normocephalic. Eyes, pupils normal. Conjunctiva slightly pale. NECK: JVP low. Carotids equal. THORAX: AP diameter normal. LUNGS: Clear. CARDIOVASCULAR: S1 and S2. ABDOMEN: Soft, nontender. No organomegaly. EXTREMITIES: No clubbing, no cyanosis. The patient has dressing on the right foot where he has osteomyelitis. LABORATORY DATA: WBC 11.5, hemoglobin 9.2, hematocrit 29.2, and platelets 452. Sodium 133, potassium 5.3, BUN 10, creatinine 0.5, sugar 120. AST, ALT normal. Total protein 7.5, albumin 2.8. DIAGNOSES: Methicillin-resistant staphylococcus aureus, sepsis, blood culture positive, osteomyelitis of the first toe of the right foot, diabetes mellitus, diabetic neuropathy, hypertension, hyperlipidemia, paroxysmal atrial fibrillation, history of ablation x2. PLAN: Consult was requested to rule out endocarditis, so the patient is going to have transesophageal echo today and we will continue present therapy. In the meantime, we will let you know the results of the transesophageal echo today. In the meantime, continue present therapy and we will follow with you. Shilo Domínguez MD
--- NOTE | 2017-07-05 18:29 | CP.PCM.PN ---
Subjective - Date & Time of Evaluation Date of Evaluation: 07/05/17 Time of Evaluation: 18:00 - Subjective Subjective: 57 year old male patient 4 days s/p right foot incision and drainage was seen at bedside this PM. Patient was resting comfortably in bed with no acute overnight distress. Dressing to right foot appears clean dry and intact. Patient was consented for right foot incision and drainage with excisional debridement of non-viable tissue. Patient agrees with podiatry surgical plan. Patient complains of pain to right foot. He admits to n/v/f/c/sob. Objective - Vital Signs/Intake and Output Vital Signs (last 24 hours): Temp Pulse Resp BP Pulse Ox 98.3 F 80 16 136/68 98 07/05/17 18:21 07/05/17 18:21 07/05/17 18:21 07/05/17 18:21 07/05/17 18:21 Intake and Output: 07/05/17 07/05/17 06:59 18:59 Intake Total 2640 670 Output Total 300 900 Balance 2340 -230 - Medications Medications: Current Medications Acetaminophen (Tylenol 325mg Tab) 650 mg PO Q4H PRN PRN Reason: Fever >100.4 F Last Admin: 07/05/17 03:10 Dose: 650 mg Albuterol/Ipratropium (Duoneb 3 Mg/0.5 Mg (3 Ml) Ud) 3 ml IH [id number] [facility] Last Admin: 07/05/17 11:00 Dose: Not Given Albuterol/Ipratropium (Duoneb 3 Mg/0.5 Mg (3 Ml) Ud) 3 ml IH Q2H PRN PRN Reason: Shortness of Breath Alprazolam (Xanax) 1 mg PO BID PRN; Protocol PRN Reason: Anxiety Last Admin: 07/05/17 01:46 Dose: 1 mg Apixaban (Eliquis) 5 mg PO BID POWER PRN Reason: Protocol Last Admin: 07/04/17 17:57 Dose: 5 mg Atorvastatin Calcium (Lipitor) 20 mg PO DIN [facility] Last Admin: 07/05/17 17:03 Dose: 20 mg Diltiazem HCl (Cardizem Cd) 240 mg PO DAILY [facility] Last Admin: 07/05/17 09:06 Dose: 240 mg Docusate Sodium (Colace) 100 mg PO BID [facility] Last Admin: 07/05/17 17:03 Dose: 100 mg Furosemide (Lasix) 20 mg PO DAILY [facility] Last Admin: 07/05/17 09:09 Dose: 20 mg Meropenem 500 mg/ Sodium (Chloride) 100 mls @ 100 mls/hr IVPB Q8 [facility] PRN Reason: Protocol Stop: 07/10/17 22:01 Last Admin: 07/05/17 15:15 Dose: 100 mls/hr Sodium Chloride (Sodium Chloride 0.9%) 1,000 mls @ 100 mls/hr IV .Q10H [facility] Last Admin: 07/05/17 17:13 Dose: 100 mls/hr Daptomycin 540 mg/ Sodium (Chloride) 100 mls @ 200 mls/hr IV Q24H [facility] Stop: 07/13/17 22:16 Last Admin: 07/04/17 22:55 Dose: 200 mls/hr Insulin Detemir (Levemir) 40 unit SC BID [facility] Last Admin: 07/05/17 10:03 Dose: Not Given Insulin Human Lispro (Humalog) 25 units SC BRK [facility] Last Admin: 07/05/17 11:47 Dose: Not Given Insulin Human Regular (Humulin R High) 0 units SC ACHS [facility] PRN Reason: Protocol Last Admin: 07/05/17 17:05 Dose: Not Given Oxycodone HCl (Oxycodone Immediate Release Tab) 30 mg PO Q4H PRN PRN Reason: Pain, severe (8-10) Last Admin: 07/05/17 15:15 Dose: 30 mg Pantoprazole Sodium (Protonix Ec Tab) 40 mg PO 0600 [facility] Last Admin: 07/05/17 05:39 Dose: 40 mg - Labs Labs: 07/05/17 06:30 07/05/17 06:30 PT 12.6 Seconds (9.9-11.8) H 07/05/17 06:30 INR 1.17 (0.93-1.08) H 07/05/17 06:30 APTT 42.9 Seconds (23.7-30.8) H 07/01/17 13:08 - Constitutional Appears: Well, Non-toxic, No Acute Distress - Head Exam Head Exam: ATRAUMATIC - Extremities Exam Additional comments: Right lower extremity focused exam: Derm: Open wound noted to dorsum of right foot measuring 5cmx 1cm x 1.5cm with mix of fibrotic and granular base. No purulent drainage noted. Moderate amount of sero-sanguinous drainage is noted. No mal-odor noted. Probes to bone. Erythema appears decreased. Another open wound noted to plantar aspect of right foot measuring 3.5cm x 3.5cm x 0.3cm with 80% granular base 20% fibrotic. Mild serous drainage. No purulent discharge. No mal-odor, No PTB. Slight maceration noted to wound edges noted. Vasc:DP and PT pulses non-palpable. Skin temperature increased to the right lower extremity Neuro: Gross sensation diminished Ortho: Pain on palpation to right foot and leg - Neurological Exam Neurological Exam: Alert, Awake, Oriented x3 - Psychiatric Exam Psychiatric exam: Normal Affect, Normal Mood - Skin Skin Exam: Normal Color, Warm Assessment and Plan - Assessment and Plan (Free Text) Assessment: 57 year old male patient 3 days s/p right foot incisions and drainage Patient to OR today for excisional debridement of non-viable tissue Right foot Plan: Patient examined and evaluated Discussed in detail with attending, Dr. Lane Chart, labs, vitals reviewed; Right foot WCX back as MRSA Patient NPO status confirmed. Written consent obtained after explaining risks, benefits, complications after the surgery. Right foot dressed with ABD, Kerlix Continue IV Abx as per ID Podiatry will follow patient while in house
[2017-07-05] MEDS ORDERED: ePHEDrine 50 mg/ml Inj ONE (19:09)
--- NOTE | 2017-07-05 20:14 | PCM.SURG1 ---
Surgeon's Initial Post Op Note - Surgeon's Notes Surgeon: Dr. Lane Dairy Cattle Farmer: Dr. Claudia Goins Type of Anesthesia: General Mask Anesthesia Administered By: Dr. Wallace Pre-Operative Diagnosis: Right foot infection with soft tissue emphysema Operative Findings: Please see dictations Post-Operative Diagnosis: Same Operation Performed: Right foot excisional debridement of non-viable tissue Specimen/Specimens Removed: Bone and soft tissue pathology, Deep wound culture Estimated Blood Loss: EBL {In ML}: 40 Blood Products Given: N/A Drains Used: No Drains Post-Op Condition: Good Date of Surgery/Procedure: 07/05/17 Time of Surgery/Procedure: 06:20
[2017-07-05] MEDS ORDERED: HYDROmorphone 0.5 mg/0.5 ml ISec ONE (20:31)
[2017-07-05] MEDS ORDERED: HYDROmorphone 0.5 mg/0.5 ml ISec IVP PRN (20:39)
[2017-07-06] MEDS: Sodium Chloride 0.9% 1,000 ML IV SCH ×4 (00:40→21:45)
[2017-07-06] MEDS: Pantoprazole 40 mg EC Tab PO SCH (05:18)
[2017-07-06] MEDS: Meropenem 500 MG in Sodium Chloride 0.9% 100 ML IVPB SCH ×3 (05:18→21:49)
[2017-07-06] MEDS: oxyCODONE 30 mg Immediate Release Tab PO PRN ×4 (05:28→23:12)
[2017-07-06] MEDS: Albuterol-Ipratrop 3 mg / 0.5 (3 ml) UD IH SCH ×5 (06:34→20:10)
[2017-07-06 07:05] LABS: INR 1.18 (0.93-1.08)
[2017-07-06 07:12] LABS: ALB/GLOB RATIO 0.6 (1.1-1.8); ALKALINE PHOSPHATASE 188 U/L (38-133); ALT/SGPT 32 U/L (7-56); AST/SGOT 55 U/L (15-59); BASO # 0.04 K/mm3 (0.0-2.0); BASO % 0.3 % (0.0-3.0); BILIRUBIN,TOTAL 0.4 mg/dL (0.2-1.3); BLOOD UREA NITROGEN 10 mg/dL (7-21); CALCIUM 8.2 mg/dL (8.4-10.5); CARBON DIOXIDE 28 mmol/L (21-33); CHLORIDE 98 mmol/L (98-107); EOS # 0.2 (0.0-0.7); EOS % 1.5 % (1.5-5.0); GFR AFRICAN-AMERICAN > 60; GLUCOSE,RANDOM 202 mg/dL (70-110); GRAN # 10.6 (1.4-6.5); GRAN % 82.6 % (50.0-68.0); HEMATOCRIT 27.6 % (42.0-52.0); LYMPH # 1.1 (1.2-3.4); LYMPH % 8.4 % (22.0-35.0); MEAN CELL VOLUME 79.5 fl (80.0-105.0); MEAN CORPUSCULAR HEMOGLOBIN 24.8 pg (25.0-35.0); MEAN CORPUSCULAR HGB CONC 31.2 g/dl (31.0-37.0); MEAN PLATELET VOLUME 7.8 fl (7.0-11.0); MONO # 0.9 (0.1-0.6); MONO % 7.2 % (1.0-6.0); POTASSIUM 4.6 mmol/L (3.6-5.0); RED CELL DISTRIBUTION WIDTH 16.2 % (11.5-14.5); SODIUM 131 mmol/L (132-148); TOTAL PROTEIN 7.2 g/dL (5.8-8.3); WHITE BLOOD COUNT 12.8 10^3/ul (4.5-11.0)
[2017-07-06] MEDS: Insulin Reg-HIGH-Coverage SC SCH ×4 (08:10→22:00)
[2017-07-06] MEDS: Insulin Lispro 1 UNITS/0.01 ML SC SCH (08:11)
--- NOTE | 2017-07-06 08:21 | RAD ---
PROCEDURE: Right Foot Radiographs. HISTORY: DP and Lateral view of right foot. S/p surgery COMPARISON: None. FINDINGS: BONES: There is no evidence of bony destruction to suggest osteomyelitis. There is fusion of the proximal and distal phalanx of the 1st digit which is probably due to previous infection or trauma. There is also an old fracture deformity of the 2nd metatarsal. Previous amputation of the 3rd toe. JOINTS: Normal. SOFT TISSUES: There is a large amount of gas in the soft tissues on the medial side of the foot consistent with infection. OTHER FINDINGS: None. IMPRESSION: Gas in the soft tissues on the medial side of the foot. No evidence of acute osteomyelitis
--- NOTE | 2017-07-06 08:21 | CON ---
EARS, NOSE AND THROAT CONSULTATION DATE: 07/05/2017 REQUESTING PHYSICIAN: Ty Monterroso MD REASON FOR CONSULTATION: Dysphonia and dysphagia. HISTORY OF PRESENT ILLNESS: The patient is a 57-year-old male with a past medical history of insulin-dependent diabetes with diabetic neuropathy, hypertension, hyperlipidemia, and history of right lower extremity cellulitis and osteomyelitis of the right first toe with MRSA bacteremia who had presented to [facility] on 07/02/2017 with a complaint of several day history of lethargy, malaise, subjective fevers and foot pain. The patient is subsequently admitted to [facility] under the medical service with consultation placed to podiatry, in which he underwent emergent surgical intervention. The patient has been maintained in [facility] for postoperative care. He complained of dysphagia and dysphonia and thus otolaryngology services consult for further evaluation and treatment. At the time of consultation, the patient endorses a history as above. He reports approximately one week history of waxing and waning dysphonia. He reports his voice at this time is within normal limits. He cannot elicit any exacerbating factors. He also reports that the food at [facility] is not palatable and he has difficulty swallowing both solids and liquids since November, which has not been worked up previously in the past. Additionally, he denies any enlarging neck masses, odynophagia, jaw pain, odontogenic pain, purulent rhinorrhea, otalgia, or other ear, nose and throat complaints. Nursing staff reports he is tolerating regular diet without any issue. PAST MEDICAL HISTORY: As above. MEDICATIONS: Reviewed. ALLERGIES: NO KNOWN DRUG ALLERGIES. SOCIAL HISTORY: The patient denies any history of tobacco, alcohol or illicit drug use. REVIEW OF SYSTEMS: Review of systems was conducted at its entirety and the pertinent positives are as listed in history of present illness. PHYSICAL EXAMINATION: VITAL SIGNS: Temperature is 99.1, pulse is 61, blood pressure is 121/65, respiratory rate 17 and oxygen saturation 98% on room air. GENERAL: The patient is an elder than stated age of 57-year-old male. He is in no acute distress. He answers questions appropriately in full sentences. There is no stridor. There is no hoarseness. There is no drooling. HEENT: Head is atraumatic and normocephalic. Face itself appears symmetrical. His auricles themselves are unremarkable. There are no masses or lesions noted. Nose, there is a right-sided septal deviation, nares are otherwise patent. There is no epistaxis or purulence. Oral cavity and oropharynx, the patient has a false upper plate which is removed. The alveolar ridge is unremarkable bilaterally. His tongue is mobile and midline. Floor of mouth is soft. His uvula is midline. There is noted erythema to the posterior oropharynx, which is nonspecific in nature. His tonsils are 1+ and symmetric with no masses noted. There is no bulge to the posterior oropharynx. NECK: The neck is supple. There is no crepitus to the neck. There is no palpable pertinent adenopathy. Trachea is midline. There is no collections or fullness. PROCEDURE: A flexible fiber laryngoscopy was performed at the patient's bedside. After informed verbal consent, the flexible fiberoptic scope was passed through the left nare. Left nasal cavity appeared congested with inferior and medial turbinate hypertrophy noted. There is a septal spur noted. The scope was passed in the nasal pharynx, was free of mass or lesion. The scope was passed further downward. The base of tongue was free of mass or lesion. The epiglottis was crisp on both laryngeal and lingual surfaces. The scope was passed further downward. The pyriform sinuses were cleared bilaterally. The aryepiglottic folds were unremarkable; arytenoids were free of mass or lesion. There is some mild erythema and edema consistent with laryngopharyngeal reflux in the postcricoid space. The true vocal cords appeared unremarkable as did the false vocal cords. The true vocal cords appeared symmetrical and mobile, meeting in the middle with noted mucosal wave. There appeared to be some irregularity noted to the posterior glottis adjacent to the postcricoid space, which was nonspecific in nature at this time. LABORATORY STUDIES: White count is 11.5, hemoglobin is 9.2 and platelets are 452. Coagulation profile is unremarkable. Chemistry reveals an alkaline phosphatase of 209, otherwise unremarkable. ASSESSMENT: The patient is a 57-year-old male with multiple medical comorbidities admitted for osteomyelitis of the right lower extremity requiring surgical intervention and complaining of one week history of dysphagia and dysphonia. No clear glottic pathology on examination to explain his symptomatology. No large gross mass or lesion was discovered. PLAN: Plan will be conservative at this time for this patient. Would recommend frequent oral hygiene as his oral mucosa did appear dry with some noted erythema. He can be offered throat lozenges for throat discomfort as needed. The patient should be treated for laryngopharyngeal reflux with a PPI daily. He should maintain head of bed elevation and not lie flat after eating. Recommend possibly a modified barium swallow if his dysphagia continues and possibly gastroenterology consult if his complaints of dysphagia with solids and liquids continue. Additionally, he had some irregularity noted at the posterior glottis, which is nonspecific at this time, but should be followed in the outpatient center for repeat scope in approximately next 4 to 6 weeks after discharge. Findings and plan were discussed in detail with the patient and nursing staff. Thank you for allowing us to participate in the patient's care. Vega Triplett DO
[2017-07-06] MEDS: diltiaZEM 240 mg/24 Hours CD Cap PO SCH (10:02)
[2017-07-06] MEDS: Insulin Detemir 100 units/ml Vial (Levemir) SC SCH ×2 (10:03→17:31)
[2017-07-06 11:25] LABS: IRON 12 ug/dL (45-180)
--- NOTE | 2017-07-06 12:56 | PN ---
DATE: SUBJECTIVE: The patient is currently in room number 277, bed 2. There have been no acute events overnight. The patient does complain of severe right knee pain. MRI is pending. PHYSICAL EXAMINATION: VITAL SIGNS: Currently, his temperature of 99.6, pulse rate of 83, blood pressure of 118/66, and respiratory rate of 20 with an O2 saturation of 96% on room air. HEENT: PERRLA. EOMI. No icterus. NECK: Supple. There are no bruits or jugular venous distention present. LUNGS: Clear to auscultation and percussion bilaterally. HEART: With a regular rate and rhythm. No murmurs, rubs, or gallops. ABDOMEN: Soft and it is nontender. Bowel sounds are normoactive. EXTREMITIES: The right leg is wrapped. The patient was debrided again by Dr. Lane. There is some minimal swelling to the right knee and pain on palpation. As previously noted, MRI is pending. NEUROLOGIC: There are no focal motor deficits. LABORATORY DATA: Current lab values: White blood count of 12.8 and hemoglobin and hematocrit of 8.6 and 27.6. PT and INR are slightly elevated at 12.7 and 1.18. Chemistry: Sodium of 131, glucose of 202, calcium of 8.2, and alkaline phosphatase of 188. Repeat blood cultures that were done on 07/03/2017 showed no growth after 48 hours. IMPRESSION: At this time: 1. Cellulitis of the right foot. 2. Toe ulcer. 3. Rule out osteomyelitis. 4. Leukocytosis. 5. Renal insufficiency. 6. Gas gangrene. PLAN: Continue current regimen. Minh Monterroso MD
--- NOTE | 2017-07-06 12:56 | CP.PCM.PN ---
Subjective - Date & Time of Evaluation Date of Evaluation: 07/06/17 Time of Evaluation: 12:53 - Subjective Subjective: 57 year old male patient 1 days s/p right foot excisional debridement of non- viable tissue was seen at bedside this morning. Patient was resting comfortably in bed with no acute overnight distress. Dressing to right foot appears clean dry and intact. Patient complains of pain to right foot. He admits to n/v/f/c/ sob. Objective - Vital Signs/Intake and Output Vital Signs (last 24 hours): Temp Pulse Resp BP Pulse Ox 99.4 F 81 20 118/62 96 07/06/17 12:00 07/06/17 12:00 07/06/17 12:00 07/06/17 12:00 07/06/17 06:00 Intake and Output: 07/06/17 07/06/17 06:59 18:59 Intake Total 1740 Output Total 200 Balance 1540 - Medications Medications: Current Medications Acetaminophen (Tylenol 325mg Tab) 650 mg PO Q4H PRN PRN Reason: Fever >100.4 F Last Admin: 07/05/17 03:10 Dose: 650 mg Albuterol/Ipratropium (Duoneb 3 Mg/0.5 Mg (3 Ml) Ud) 3 ml IH [id number] [facility] Last Admin: 07/06/17 07:18 Dose: Not Given Albuterol/Ipratropium (Duoneb 3 Mg/0.5 Mg (3 Ml) Ud) 3 ml IH Q2H PRN PRN Reason: Shortness of Breath Alprazolam (Xanax) 1 mg PO BID PRN; Protocol PRN Reason: Anxiety Last Admin: 07/05/17 01:46 Dose: 1 mg Apixaban (Eliquis) 5 mg PO BID POWER PRN Reason: Protocol Last Admin: 07/06/17 10:11 Dose: 5 mg Atorvastatin Calcium (Lipitor) 20 mg PO DIN [facility] Last Admin: 07/05/17 17:03 Dose: 20 mg Diltiazem HCl (Cardizem Cd) 240 mg PO DAILY [facility] Last Admin: 07/06/17 10:02 Dose: 240 mg Docusate Sodium (Colace) 100 mg PO BID [facility] Last Admin: 07/06/17 10:02 Dose: 100 mg Furosemide (Lasix) 20 mg PO DAILY [facility] Last Admin: 07/06/17 10:02 Dose: 20 mg Meropenem 500 mg/ Sodium (Chloride) 100 mls @ 100 mls/hr IVPB Q8 [facility] PRN Reason: Protocol Stop: 07/10/17 22:01 Last Admin: 07/06/17 05:18 Dose: 100 mls/hr Sodium Chloride (Sodium Chloride 0.9%) 1,000 mls @ 100 mls/hr IV .Q10H [facility] Last Admin: 07/06/17 00:40 Dose: 100 mls/hr Daptomycin 540 mg/ Sodium (Chloride) 100 mls @ 200 mls/hr IV Q24H [facility] Stop: 07/13/17 22:16 Last Admin: 07/05/17 22:42 Dose: 200 mls/hr Iron Sucrose 200 mg/ Sodium (Chloride) 110 mls @ 110 mls/hr IVPB ONCE ONE Stop: 07/06/17 13:19 Iron Sucrose 100 mg/ Sodium (Chloride) 105 mls @ 210 mls/hr IVPB DAILY [facility] Stop: 07/09/17 10:29 Insulin Detemir (Levemir) 40 unit SC BID [facility] Last Admin: 07/06/17 10:03 Dose: 40 unit Insulin Human Lispro (Humalog) 25 units SC BRK [facility] Last Admin: 07/06/17 08:11 Dose: 25 units Insulin Human Regular (Humulin R High) 0 units SC ACHS [facility] PRN Reason: Protocol Last Admin: 07/06/17 11:53 Dose: Not Given Oxycodone HCl (Oxycodone Immediate Release Tab) 30 mg PO Q4H PRN PRN Reason: Pain, severe (8-10) Last Admin: 07/06/17 10:11 Dose: 30 mg Pantoprazole Sodium (Protonix Ec Tab) 40 mg PO 0600 [facility] Last Admin: 07/06/17 05:18 Dose: 40 mg - Labs Labs: 07/06/17 06:45 07/06/17 06:45 PT 12.7 Seconds (9.9-11.8) H 07/06/17 06:45 INR 1.18 (0.93-1.08) H 07/06/17 06:45 APTT 42.9 Seconds (23.7-30.8) H 07/01/17 13:08 - Constitutional Appears: Well, Non-toxic, No Acute Distress - Extremities Exam Additional comments: Right lower extremity focused exam: Derm: Open wound noted to dorsum of right foot measuring 10cmx 3cm x 1.5cm with mix of fibrotic and granular base. No purulent drainage noted. Moderate amount of sero-sanguinous drainage is noted. No mal-odor noted. Probes to bone. Erythema appears decreased. Another open wound noted to plantar aspect of right foot measuring 10cm x 3.5cm x 0.3cm with 80% granular base 20% fibrotic. Mild serous drainage. No purulent discharge. No mal-odor, No PTB. Slight maceration noted to wound edges noted. Vasc:DP and PT pulses non-palpable. Skin temperature increased to the right lower extremity Neuro: Gross sensation diminished Ortho: Pain on palpation to right foot and leg - Neurological Exam Neurological Exam: Alert, Awake, Oriented x3 - Psychiatric Exam Psychiatric exam: Normal Affect, Normal Mood - Skin Skin Exam: Normal Color, Warm Assessment and Plan - Assessment and Plan (Free Text) Assessment: 57 year old male patient 1 day s/p right foot excisional debridement of non- viable tissue Plan: Patient examined and evaluated Discussed in detail with attending, Dr. Lane Chart, labs, vitals reviewed; afebrile Right foot WCX back as MRSA Right foot cleansed with normal sterile saline, packed with 1 inch iodoform packing, wet to dry dressing to dorsum & plantar aspect Right foot dressed with ABD, Kerlix Continue IV Abx as per ID Podiatry will follow patient while in house
--- NOTE | 2017-07-06 13:31 | PN ---
DATE: 07/06/2017 SUBJECTIVE: The patient is in bed, in no acute distress, nontoxic. PHYSICAL EXAMINATION: VITAL SIGNS: Temperature is 98, T-max is 100.7; blood pressure is 102/50, respiratory rate of 18 and heart rate of 78. HEENT: Unremarkable. NECK: Supple. LUNGS: Decreased breath sounds. HEART: Normal S1 and S2. ABDOMEN: Soft and nontender. No rebound or guarding. LABORATORY EXAMINATION: Reveals the white count of 12,800, hemoglobin of 8, platelets of 500. Coagulation is noted. Chemistries reveal the BUN of 10, creatinine of 0.5, alk phos is 188. Urinalysis is noted and HIV is negative. Blood cultures reveal MRSA and the right foot culture is also MRSA. Repeat blood cultures are negative from the . Review of orders reveal the patient to be on daptomycin and meropenem. The patient was taken to the OR yesterday, had right foot excisional debridement of nonviable tissue, bony and soft tissue, pathology and deep wound culture. ASSESSMENT AND PLAN: This is a 57-year-old male with sepsis with gas gangrene, osteomyelitis of the right foot, status post debridement postop day #5 and is again yesterday with methicillin-resistant Staphylococcus aureus bacteremia with methicillin-resistant Staphylococcus aureus in the foot also with thickened aortic valve, rule out endocarditis and patient with right knee swelling, hypertension, diabetes, gastroesophageal reflux disease, peripheral neuropathy, history of cardiac ablation, currently on daptomycin, and the patient is refusing vancomycin. The patient for a possible transesophageal echocardiography and echo from yesterday is noted. Read by , aortic valve is severely thickened. No aortic vegetation is seen. No mitral or tricuspid valve vegetation is seen, and the patient is on day #4 of antibiotics methicillin-resistant Staphylococcus aureus bacteremia will need at least 14 days, today is day #4 of 14 days of daptomycin. If there is osteomyelitis pending on pathology, may need 4 weeks to 6 weeks of antibiotics of the foot. We will check on the pathology report. We will check on the overall culture. Volodymyr Heath MD
[2017-07-06 17:33] LABS: FOLATE 15.6 ng/mL
--- NOTE | 2017-07-06 18:09 | PN ---
DATE: 07/06/2017 LOCATION: Room 277, bed 2. REASON FOR CONSULTATION: Followup of osteomyelitis, staph sepsis, rule out endocarditis. SUBJECTIVE: The patient is lying comfortable in bed without any cardiac symptoms like chest pain, shortness of breath or palpitation. PHYSICAL EXAMINATION: VITAL SIGNS: Blood pressure 118/62, respirations 20, pulse 81, temperature 99.4. HEENT: Head is normocephalic. Eyes, pupils normal. Conjunctivae slightly pale. NECK: JVP low. Carotids equal. Thorax AP diameter normal. LUNGS: Clear. CARDIOVASCULAR: S1 and S2. ABDOMEN Soft, nontender. No organomegaly. EXTREMITIES: The patient had wound on the right foot, for which he had debridement yesterday by Dr. Lane. LABORATORY DATA: WBC 12.8, hemoglobin 8.6 , hematocrit 27.6, platelet 500. Sodium 131, potassium 4.6, BUN 10, creatinine 0.5, sugar 119. AST and ALT normal. Total protein normal, albumin low at 2.6. DIAGNOSES: Methicillin-resistant staphylococcus aureus, blood culture positive, osteomyelitis of the first toe of the right foot, diabetes mellitus, diabetic neuropathy, hypertension, hyperlipidemia, paroxysmal atrial fibrillation, history of ablation x2. PLAN: The patient had ANJU yesterday, which did not show any vegetation, so it was negative for endocarditis. In the meantime, we will continue present therapy with Cardizem CD 240 daily, daptomycin 540 mg IV q. 24 hours, Eliquis 5 b.i.d., insulin as ordered, Venofer 100 mg IV daily, furosemide 20 mg p.o. daily, atorvastatin 20 mg daily, Merrem 500 mg IV q.8 hours, Protonix 40 daily, IV fluids sodium chloride 0.9% 100 mL an hour. We will continue present therapy. We will follow with you. Shilo Domínguez MD
[2017-07-07] MEDS: Sodium Chloride 0.9% 1,000 ML IV SCH ×3 (02:08→18:02)
[2017-07-07] MEDS: Albuterol-Ipratrop 3 mg / 0.5 (3 ml) UD IH SCH ×6 (04:00→19:28)
[2017-07-07] MEDS: Meropenem 500 MG in Sodium Chloride 0.9% 100 ML IVPB SCH ×3 (06:01→23:45)
[2017-07-07] MEDS: Pantoprazole 40 mg EC Tab PO SCH (06:01)
[2017-07-07 06:58] LABS: BASO # 0.02 K/mm3 (0.0-2.0); BASO % 0.2 % (0.0-3.0); EOS # 0.2 (0.0-0.7); GRAN # 8.56 (1.4-6.5); GRAN % 76.2 % (50.0-68.0); HEMATOCRIT 25.9 % (42.0-52.0); INR 1.2 (0.93-1.08); LYMPH # 1.5 (1.2-3.4); LYMPH % 13.5 % (22.0-35.0); MEAN CELL VOLUME 79.9 fl (80.0-105.0); MEAN CORPUSCULAR HGB CONC 31.3 g/dl (31.0-37.0); MEAN PLATELET VOLUME 7.6 fl (7.0-11.0); MONO # 0.9 (0.1-0.6); MONO % 8.1 % (1.0-6.0); WHITE BLOOD COUNT 11.2 10^3/ul (4.5-11.0)
[2017-07-07 07:01] LABS: ALB/GLOB RATIO 0.5 (1.1-1.8); ALKALINE PHOSPHATASE 174 U/L (38-133); ALT/SGPT 38 U/L (7-56); AST/SGOT 53 U/L (15-59); BLOOD UREA NITROGEN 8 mg/dL (7-21); CALCIUM 8.1 mg/dL (8.4-10.5); CARBON DIOXIDE 30 mmol/L (21-33); CHLORIDE 100 mmol/L (98-107); GFR AFRICAN-AMERICAN > 60; POTASSIUM 3.8 mmol/L (3.6-5.0); SODIUM 135 mmol/L (132-148); TOTAL PROTEIN 6.8 g/dL (5.8-8.3)
[2017-07-07 07:11] LABS: BILIRUBIN,TOTAL < 0.1 mg/dL (0.2-1.3)
[2017-07-07 07:12] LABS: GLUCOSE,RANDOM 43 mg/dL (70-110)
[2017-07-07] MEDS: Insulin Reg-HIGH-Coverage SC SCH ×4 (07:45→22:44)
[2017-07-07] MEDS: Insulin Lispro 1 UNITS/0.01 ML SC SCH (08:53)
[2017-07-07] MEDS: oxyCODONE 30 mg Immediate Release Tab PO PRN ×3 (09:13→22:11)
[2017-07-07] MEDS: Insulin Detemir 100 units/ml Vial (Levemir) SC SCH ×2 (09:15→18:02)
[2017-07-07] MEDS: diltiaZEM 240 mg/24 Hours CD Cap PO SCH (09:15)
--- NOTE | 2017-07-07 09:20 | CP.PCM.PN ---
Subjective - Date & Time of Evaluation Date of Evaluation: 07/07/17 Time of Evaluation: 09:15 - Subjective Subjective: 57 year old male patient 2 days s/p right foot excisional debridement of non- viable tissue was seen at bedside this morning. AAO x3. Patient was resting comfortably in bed with no acute overnight distress. Dressing to right foot appears clean dry and intact. Patient complains of pain to right foot. Patient denies of any N/V/F/C or SOB today Patient states that he refused MRI yesterday and was non-compliant against our medical advice. Patient still refuses MRI. Ordered Xray of Right knee Objective - Vital Signs/Intake and Output Vital Signs (last 24 hours): Temp Pulse Resp BP Pulse Ox 98.4 F 69 20 125/61 98 07/07/17 06:00 07/07/17 06:00 07/07/17 06:00 07/07/17 06:00 07/07/17 06:00 Intake and Output: 07/07/17 07/07/17 06:59 18:59 Intake Total 1940 Output Total 1200 Balance 740 - Medications Medications: Current Medications Acetaminophen (Tylenol 325mg Tab) 650 mg PO Q4H PRN PRN Reason: Fever >100.4 F Last Admin: 07/06/17 23:54 Dose: 650 mg Albuterol/Ipratropium (Duoneb 3 Mg/0.5 Mg (3 Ml) Ud) 3 ml IH [id number] [facility] Last Admin: 07/07/17 08:12 Dose: Not Given Albuterol/Ipratropium (Duoneb 3 Mg/0.5 Mg (3 Ml) Ud) 3 ml IH Q2H PRN PRN Reason: Shortness of Breath Alprazolam (Xanax) 1 mg PO BID PRN; Protocol PRN Reason: Anxiety Last Admin: 07/05/17 01:46 Dose: 1 mg Apixaban (Eliquis) 5 mg PO BID POWER PRN Reason: Protocol Last Admin: 07/06/17 17:32 Dose: 5 mg Atorvastatin Calcium (Lipitor) 20 mg PO DIN [facility] Last Admin: 07/06/17 17:32 Dose: 20 mg Diltiazem HCl (Cardizem Cd) 240 mg PO DAILY [facility] Last Admin: 07/06/17 10:02 Dose: 240 mg Docusate Sodium (Colace) 100 mg PO BID [facility] Last Admin: 07/06/17 17:32 Dose: 100 mg Furosemide (Lasix) 20 mg PO DAILY [facility] Last Admin: 07/06/17 10:02 Dose: 20 mg Meropenem 500 mg/ Sodium (Chloride) 100 mls @ 100 mls/hr IVPB Q8 [facility] PRN Reason: Protocol Stop: 07/10/17 22:01 Last Admin: 07/07/17 06:01 Dose: 100 mls/hr Sodium Chloride (Sodium Chloride 0.9%) 1,000 mls @ 100 mls/hr IV .Q10H [facility] Last Admin: 07/07/17 02:08 Dose: 100 mls/hr Daptomycin 540 mg/ Sodium (Chloride) 100 mls @ 200 mls/hr IV Q24H [facility] Stop: 07/13/17 22:16 Last Admin: 07/06/17 23:07 Dose: 200 mls/hr Iron Sucrose 100 mg/ Sodium (Chloride) 105 mls @ 210 mls/hr IVPB DAILY [facility] Stop: 07/09/17 10:29 Insulin Detemir (Levemir) 40 unit SC BID [facility] Last Admin: 07/06/17 17:31 Dose: 40 unit Insulin Human Lispro (Humalog) 25 units SC BRK [facility] Last Admin: 07/07/17 08:53 Dose: Not Given Insulin Human Regular (Humulin R High) 0 units SC ACHS [facility] PRN Reason: Protocol Last Admin: 07/07/17 07:45 Dose: Not Given Oxycodone HCl (Oxycodone Immediate Release Tab) 30 mg PO Q4H PRN PRN Reason: Pain, severe (8-10) Last Admin: 07/06/17 23:12 Dose: 30 mg Pantoprazole Sodium (Protonix Ec Tab) 40 mg PO 0600 [facility] Last Admin: 07/07/17 06:01 Dose: 40 mg - Labs Labs: 07/07/17 06:00 07/07/17 06:00 PT 13.0 Seconds (9.9-11.8) H 07/07/17 06:00 INR 1.20 (0.93-1.08) H 07/07/17 06:00 APTT 42.9 Seconds (23.7-30.8) H 07/01/17 13:08 - Constitutional Appears: Well, Non-toxic, No Acute Distress - Extremities Exam Additional comments: Right lower extremity focused exam: Derm: Open wound noted to dorsum of right foot measuring 10cmx 3cm x 1.5cm with mix of fibrotic and granular base. No purulent drainage noted. Moderate amount of sero-sanguinous drainage is noted. No mal-odor noted. Probes to bone. Erythema appears decreased. Another open wound noted to plantar aspect of right foot measuring 10cm x 3.5cm x 0.3cm with 80% granular base 20% fibrotic. Mild serous drainage. No purulent discharge. No mal-odor, No PTB. Slight maceration noted to wound edges noted. Vasc:DP and PT pulses non-palpable. Skin temperature increased to the right lower extremity Neuro: Gross sensation diminished Ortho: Pain on palpation to right foot and leg - Neurological Exam Neurological Exam: Alert, Awake, Oriented x3 - Psychiatric Exam Psychiatric exam: Normal Affect, Normal Mood - Skin Skin Exam: Normal Color, Warm Assessment and Plan - Assessment and Plan (Free Text) Assessment: 57 year old male patient 2 days s/p right foot excisional debridement of non- viable tissue Plan: Patient examined and evaluated Discussed in detail with attending, Dr. Lane Chart, labs, vitals reviewed; afebrile Right foot WCX back as MRSA Right foot cleansed with normal sterile saline, packed with 1 inch iodoform packing, wet to dry dressing to dorsum & plantar aspect Right foot dressed with ABD, Kerlix Continue IV Abx as per ID Right knee Xray is ordered Podiatry will follow patient while in house
--- NOTE | 2017-07-07 10:40 | PN ---
DATE: DAILY PROGRESS NOTE SUBJECTIVE: The patient was seen and examined at bedside on the telemetry rolle. He is status post repeat operative intervention with Dr. Lane in the podiatry team secondary to right foot osteomyelitis with gas gangrene. This morning, he is lying in bed in moderate distress secondary to right foot pain, but otherwise offers no complaints. OBJECTIVE: VITAL SIGNS: Temperature 98.4, pulse 69, blood pressure 125/61, respiratory rate 20, and oxygen saturation 98% on room air. GENERAL: Mild distress secondary to right foot pain. HEENT: PERRL. EOMI. No scleral icterus. Mild conjunctival pallor is noted. NECK: No JVD. LUNGS: Clear to auscultation. CARDIOVASCULAR: Regular rate and rhythm. Normal S1 and S2. ABDOMEN: Normoactive bowel sounds, soft, nontender, and nondistended. EXTREMITIES: Right foot with surgical dressing in place. NEUROLOGIC: Awake, alert, and oriented x3. No focal motor deficits. LABORATORY DATA: WBC of 11.2 with 76% neutrophils, hemoglobin 8, hematocrit 26, and platelets 421. Chemistry reviewed and unremarkable with the exception of glucose of 43. 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 PLAN: 1. Osteomyelitis of the right foot from Dr. Lane of Podiatry noted and greatly appreciated. Continue with care as per the podiatric team. Input from Dr. Heath and Dr. Adams of infectious disease also noted and greatly appreciated. Continue with daptomycin 540 mg IV daily and meropenem 500 mg IV q.8 hours. 2. Severe sepsis secondary to osteomyelitis of the right foot, resolving, continue with care as per #1. 3. Acute kidney injury, resolved. 4. Hyponatremia, resolved. 5. Hypertension, blood pressure remained stable. Continue with diltiazem 240 mg p.o. daily. 6. Hyperlipidemia. Continue with Lipitor 20 mg p.o. daily. 7. Insulin-dependent diabetes mellitus with diabetic neuropathy. Continue with Humalog 70/30, 25 units subcutaneously q.a.m. and Lantus 40 units subcutaneously b.i.d. 8. Anxiety disorder. Continue with Xanax 1 mg p.o. b.i.d. 9. Paroxysmal atrial fibrillation, status post ablation. Continue with diltiazem 240 mg p.o. daily and Eliquis 5 mg p.o. b.i.d. 10. Sciatica. Continue with oxycodone 30 mg p.o. q.4 hours p.r.n. pain. 11. Prophylaxis. Continue Protonix 40 mg p.o. daily and Eliquis. CODE STATUS: FULL CODE. Ty Monterroso MD
[2017-07-07 13:56] LABS: PH,URINE 6.5 (4.7-8.0); URINE BILIRUBIN NEGATIVE (NEGATIVE); URINE BLOOD TRACE-LYSED (NEGATIVE); URINE GLUCOSE (UA) NEGATIVE (NEGATIVE); URINE KETONE NEGATIVE (NEGATIVE); URINE LEUKOCYTE ESTERASE NEGATIVE Leu/uL (NEGATIVE); URINE PROTEIN NEGATIVE mg/dL (<30 mg/dL)
[2017-07-07 14:06] LABS: URINE APPEARANCE CLEAR (CLEAR); URINE COLOR YELLOW (YELLOW)
--- NOTE | 2017-07-07 14:07 | RAD ---
HISTORY: FEVER COMPARISON: Atelectasis comparison chest 07/01/2017 FINDINGS: LUNGS: Minimal bibasilar PLEURA: No significant pleural effusion identified, no pneumothorax apparent. CARDIOVASCULAR: Normal. OSSEOUS STRUCTURES: Minor multilevel degenerative spondylosis of the thoracic spine. There appears to be a subtle levoscoliosis centered in the thoracolumbar region. VISUALIZED UPPER ABDOMEN: Normal. OTHER FINDINGS: None. IMPRESSION: Minimal bibasilar atelectasis
--- NOTE | 2017-07-07 14:09 | RAD ---
PROCEDURE: Right Knee Radiographs. HISTORY: Right knee pain COMPARISON: None. FINDINGS: BONES: No evidence of acute displaced fracture nor dislocation. The osseous structures appear intact. . JOINTS: Degenerative osteoarthritis most significantly affecting the medial and patellofemoral compartments. Mild marked medial joint space narrowing with subchondral sclerosis and medial marginal osteophyte formation. Patellofemoral osteophyte formation. JOINT EFFUSION: Moderate-sized suprapatellar joint effusion OTHER FINDINGS: Vascular calcifications are present IMPRESSION: No acute fractures. DJD with moderate size suprapatellar joint effusion as above
[2017-07-07 14:52] LABS: URINE BACTERIA FEW (NEG); URINE EPITHELIAL CELLS 0 - 2 /hpf (0-5); URINE RBC 0 - 2 /hpf (0-2); URINE WBC 0 - 2 /hpf (0-6)
--- NOTE | 2017-07-07 17:14 | PN ---
DATE: 07/07/2017 LOCATION: Room 277, bed 2. REASON FOR CONSULTATION: Follow up staph sepsis rule out endocarditis, paroxysmal atrial fibrillation, history of ablation x2. SUBJECTIVE: The patient is lying flat in bed without chest pain, shortness of breath or palpitation. No dizziness. PHYSICAL EXAMINATION: VITAL SIGNS: Blood pressure 119/64, respirations 20, pulse 71, temperature 98.4. HEENT: Head is normocephalic. Eyes, pupil normal. Conjunctivae slightly pale. NECK: JVP low. Carotids equal. Thorax AP diameter normal. LUNGS: Clear. CARDIOVASCULAR: S1 and S2. ABDOMEN: Soft, nontender. No organomegaly. Bowel sounds normal. EXTREMITIES: There is a right foot dressing because of osteomyelitis. LABORATORY DATA: WBC 11.2, hemoglobin 8.1, hematocrit 25.9, platelet 421. Sodium 135, potassium 3.8, BUN is 8, random glucose 120. Total protein 6.8, albumin 2.4. Earlier sugar this morning was but now it is 120. DIAGNOSES: Methicillin-resistant staphylococcus aureus sepsis, blood culture positive, osteomyelitis of the first toe of the right foot, diabetes mellitus, diabetic neuropathy, hypertension, hyperlipidemia, paroxysmal atrial fibrillation, history of ablation x2, status post transesophageal echocardiogram. PLAN: No evidence of vegetation on transesophageal echocardiogram and the patient's monitor since admission has been showing regular sinus rhythm, no arrhythmia note. So we will discontinue telemetry and in the meantime, we will continue the present therapy with Cardizem CD 240 daily, daptomycin mg IV every 24 hours, DuoNeb hand nebulizer therapy, Eliquis 5 mg b.i.d., insulin as ordered, Venofer 100 mg IV daily, Lasix 20 mg p.o. daily, atorvastatin 20 daily, Merrem IV 500 mg every 8 hours, Protonix 40 daily. The patient is getting IV fluids 0.9 saline 100 mL an hour, Xanax 1 mg p.o. b.i.d. p.r.n. We will discontinue telemetry. Shilo Domínguez MD
--- NOTE | 2017-07-07 17:18 | PN ---
DATE: 07/07/2017 SUBJECTIVE: The patient is in bed, no acute distress, nontoxic. The patient was seen earlier in 277. He had a fever earlier. PHYSICAL EXAMINATION: VITAL SIGNS: Temperature of 98, T-max is 100.4, respiratory rate of 20, heart rate of 71. HEENT: Unremarkable. NECK: Supple. LUNGS: Decreased breath sounds. HEART: Normal S1 and S2. ABDOMEN: Soft, nontender. No organomegaly. No rebound. No guarding. No masses. LABORATORY DATA: Reveals the patient's white count of 11,000, hemoglobin of 8, platelets of 421. Chemistries reveals BUN of 8, creatinine of 0.5, procalcitonin is 1.25 and urinalysis is noted and HIV is negative. Microbiology reveals foot has Staphylococcus aureus as the blood has MRSA and Dr. Goins's note is reviewed. Dr. Ty Monterroso's note is reviewed. ASSESSMENT AND PLAN: A 57-year-old male with diabetes mellitus, diabetic neuropathy, hyperlipidemia and hypertension, now with methicillin-resistant Staphylococcus aureus bacteremia, the right foot cellulitis, severe sepsis, osteomyelitis with gas gangrene, status post operative debridement. The patient's post procedure day #6 with methicillin-resistant Staphylococcus aureus bacteremia and methicillin-resistant Staphylococcus aureus in the foot and a thickened valve with no evidence of endocarditis. The patient is refusing vancomycin because of his hearing issues. Currently, today is day #5 of daptomycin, will need at least 14 days, if the pathology shows osteomyelitis on the foot, would treat his osteomyelitis in 4-6 weeks and review of the pathology shows focal acute osteomyelitis with persistence of fevers, may need furthers surgical intervention of the foot. Review of orders reveals the daptomycin to be active and since the patient had new fevers this morning of 100.4, we will repeat alvarez cultures including blood, urine and sputum and urinalysis. We will order procalcitonin and review of chest x-rays reveals the patient had a chest x-ray on the . We will repeat a chest x-ray, a portable one since the patient has difficulty ambulating, and we will follow closely with you. Dr. Avelino Triplett's consultation is noted from the . Volodymyr Heath MD [facility] # [id number]
[2017-07-08] MEDS: Albuterol-Ipratrop 3 mg / 0.5 (3 ml) UD IH SCH ×5 (00:28→23:42)
[2017-07-08] MEDS: oxyCODONE 30 mg Immediate Release Tab PO PRN ×4 (02:05→21:30)
[2017-07-08] MEDS: Meropenem 500 MG in Sodium Chloride 0.9% 100 ML IVPB SCH ×3 (05:42→21:13)
[2017-07-08] MEDS: Pantoprazole 40 mg EC Tab PO SCH (05:42)
[2017-07-08 08:34] LABS: INR 1.2 (0.93-1.08)
[2017-07-08 08:40] LABS: ALB/GLOB RATIO 0.6 (1.1-1.8); ALKALINE PHOSPHATASE 178 U/L (38-133); ALT/SGPT 35 U/L (7-56); AST/SGOT 36 U/L (15-59); BILIRUBIN,TOTAL 0.3 mg/dL (0.2-1.3); BLOOD UREA NITROGEN 10 mg/dL (7-21); CALCIUM 7.8 mg/dL (8.4-10.5); CARBON DIOXIDE 26 mmol/L (21-33); CHLORIDE 100 mmol/L (98-107); GFR AFRICAN-AMERICAN > 60; GLUCOSE,RANDOM 97 mg/dL (70-110); POTASSIUM 4.7 mmol/L (3.6-5.0); SODIUM 133 mmol/L (132-148); TOTAL PROTEIN 7.1 g/dL (5.8-8.3)
[2017-07-08] MEDS: diltiaZEM 240 mg/24 Hours CD Cap PO SCH (09:12)
[2017-07-08] MEDS: Insulin Lispro 1 UNITS/0.01 ML SC SCH (09:15)
[2017-07-08] MEDS: Insulin Detemir 100 units/ml Vial (Levemir) SC SCH ×2 (09:17→17:39)
[2017-07-08] MEDS: Insulin Reg-HIGH-Coverage SC SCH ×4 (09:17→21:57)
[2017-07-08] MEDS: Sodium Chloride 0.9% 1,000 ML IV SCH ×2 (09:18→19:47)
[2017-07-08 09:37] LABS: BASO # 0.03 K/mm3 (0.0-2.0); BASO % 0.3 % (0.0-3.0); EOS # 0.2 (0.0-0.7); EOS % 1.4 % (1.5-5.0); GRAN # 9.03 (1.4-6.5); GRAN % 77.7 % (50.0-68.0); HEMATOCRIT 27.6 % (42.0-52.0); LYMPH # 1.3 (1.2-3.4); LYMPH % 11.4 % (22.0-35.0); MEAN CELL VOLUME 80.7 fl (80.0-105.0); MEAN CORPUSCULAR HEMOGLOBIN 25.4 pg (25.0-35.0); MEAN CORPUSCULAR HGB CONC 31.5 g/dl (31.0-37.0); MONO # 1.1 (0.1-0.6); MONO % 9.2 % (1.0-6.0); WHITE BLOOD COUNT 11.6 10^3/ul (4.5-11.0)
--- NOTE | 2017-07-08 13:25 | CP.PCM.PN ---
Subjective - Date & Time of Evaluation Date of Evaluation: 07/08/17 Time of Evaluation: 13:22 - Subjective Subjective: 57 year old male patient 3 days s/p right foot excisional debridement of non- viable tissue was seen at bedside this morning. AAO x3. Patient was resting comfortably in bed with no acute overnight distress. Dressing to right foot appears intact. Patient complains of pain to right knee more than right foot. Patient denies of any N/V/F/C or SOB today Patient states that he refused MRI and was non-compliant against our medical advice. Ordered Xray of Right knee Objective - Vital Signs/Intake and Output Vital Signs (last 24 hours): Temp Pulse Resp BP Pulse Ox 97.6 F 72 20 132/88 99 07/07/17 23:00 07/08/17 09:12 07/07/17 23:00 07/08/17 09:13 07/07/17 23:00 Intake and Output: 07/08/17 07/08/17 06:59 18:59 Intake Total 2920 Output Total 650 Balance 2270 - Medications Medications: Current Medications Acetaminophen (Tylenol 325mg Tab) 650 mg PO Q4H PRN PRN Reason: Fever >100.4 F Last Admin: 07/07/17 19:49 Dose: 650 mg Albuterol/Ipratropium (Duoneb 3 Mg/0.5 Mg (3 Ml) Ud) 3 ml IH [id number] [facility] Last Admin: 07/08/17 11:39 Dose: Not Given Albuterol/Ipratropium (Duoneb 3 Mg/0.5 Mg (3 Ml) Ud) 3 ml IH Q2H PRN PRN Reason: Shortness of Breath Alprazolam (Xanax) 1 mg PO BID PRN; Protocol PRN Reason: Anxiety Last Admin: 07/08/17 09:12 Dose: 1 mg Apixaban (Eliquis) 5 mg PO BID POWER PRN Reason: Protocol Last Admin: 07/08/17 09:12 Dose: 5 mg Atorvastatin Calcium (Lipitor) 20 mg PO DIN [facility] Last Admin: 07/07/17 18:01 Dose: 20 mg Diltiazem HCl (Cardizem Cd) 240 mg PO DAILY [facility] Last Admin: 07/08/17 09:12 Dose: 240 mg Docusate Sodium (Colace) 100 mg PO BID [facility] Last Admin: 07/08/17 09:13 Dose: 100 mg Furosemide (Lasix) 20 mg PO DAILY [facility] Last Admin: 07/08/17 09:13 Dose: 20 mg Meropenem 500 mg/ Sodium (Chloride) 100 mls @ 100 mls/hr IVPB Q8 [facility] PRN Reason: Protocol Stop: 07/10/17 22:01 Last Admin: 07/08/17 05:42 Dose: 100 mls/hr Sodium Chloride (Sodium Chloride 0.9%) 1,000 mls @ 100 mls/hr IV .Q10H [facility] Last Admin: 07/08/17 09:18 Dose: 100 mls/hr Daptomycin 540 mg/ Sodium (Chloride) 100 mls @ 200 mls/hr IV Q24H [facility] Stop: 07/13/17 22:16 Last Admin: 07/07/17 22:12 Dose: 200 mls/hr Iron Sucrose 100 mg/ Sodium (Chloride) 105 mls @ 210 mls/hr IVPB DAILY [facility] Stop: 07/09/17 10:29 Last Admin: 07/08/17 09:15 Dose: 210 mls/hr Insulin Detemir (Levemir) 40 unit SC BID [facility] Last Admin: 07/08/17 09:17 Dose: 40 unit Insulin Human Lispro (Humalog) 25 units SC BRK [facility] Last Admin: 07/08/17 09:15 Dose: 25 units Insulin Human Regular (Humulin R High) 0 units SC ACHS [facility] PRN Reason: Protocol Last Admin: 07/08/17 12:34 Dose: Not Given Oxycodone HCl (Oxycodone Immediate Release Tab) 30 mg PO Q4H PRN PRN Reason: Pain, severe (8-10) Last Admin: 07/08/17 09:27 Dose: 30 mg Pantoprazole Sodium (Protonix Ec Tab) 40 mg PO 0600 [facility] Last Admin: 07/08/17 05:42 Dose: 40 mg - Labs Labs: 07/08/17 07:55 07/08/17 08:10 PT 13.0 Seconds (9.9-11.8) H 07/08/17 08:10 INR 1.20 (0.93-1.08) H 07/08/17 08:10 APTT 42.9 Seconds (23.7-30.8) H 07/01/17 13:08 - Constitutional Appears: Well, Non-toxic, No Acute Distress - Head Exam Head Exam: ATRAUMATIC - Extremities Exam Additional comments: Right lower extremity focused exam: Derm: Open wound noted to dorsum of right foot measuring 10cmx 3cm x 1.5cm with mix of fibrotic and granular base. No purulent drainage noted. Moderate amount of sero-sanguinous drainage is noted. No mal-odor noted. Probes to bone. Erythema appears decreased. Another open wound noted to plantar aspect of right foot measuring 10cm x 3.5cm x 0.3cm with 80% granular base 20% fibrotic. Mild serous drainage. No purulent discharge. No mal-odor, No PTB. Slight maceration noted to wound edges noted. Vasc:DP and PT pulses non-palpable. Skin temperature increased to the right lower extremity Neuro: Gross sensation diminished Ortho: Pain on palpation to right foot and leg - Neurological Exam Neurological Exam: Alert, Awake, Oriented x3 - Psychiatric Exam Psychiatric exam: Normal Affect, Normal Mood - Skin Skin Exam: Normal Color, Warm Assessment and Plan - Assessment and Plan (Free Text) Assessment: 57 year old male patient 3 days s/p right foot excisional debridement of non- viable tissue Plan: Patient examined and evaluated Discussed in detail with attending, Dr. Lane Chart, labs, vitals reviewed; afebrile Right foot WCX; MRSA Right knee Xray consistent with DJD, no acute fx noted Right foot cleansed with normal sterile saline, packed with 1 inch iodoform packing, wet to dry dressing to dorsum & plantar aspect Right foot dressed with ABD, Kerlix Continue IV Abx as per ID Podiatry will follow patient while in house
--- NOTE | 2017-07-08 14:04 | PN ---
DATE: LOCATION: The patient is in room 362, bed 1. REASON FOR CONSULTATION: Followup on staph sepsis rule out endocarditis, paroxysmal atrial fibrillation, history of ablation x2. SUBJECTIVE: The patient is sitting in bed without chest pain, shortness of breath, or palpitation. Denies any dizziness. PHYSICAL EXAMINATION: VITAL SIGNS: Blood pressure 132/88, respirations 20, pulse 72, and temperature 97.6. HEENT: Head is normocephalic. Eyes, pupils are normal. Conjunctivae slightly pale. NECK: JVP low, carotids equal. THORAX: AP diameter normal. LUNGS: Clear. CARDIOVASCULAR: S1 and S2. ABDOMEN: Soft, nontender. No organomegaly. Bowel sounds normal. EXTREMITIES: No clubbing. No cyanosis. LABORATORY DATA: WBC 11.2, hemoglobin 8.1, hematocrit 25.9, and platelets 421. Sodium 133, potassium 4.7, BUN 10, creatinine 0.5, and glucose 97. AST and ALT normal. DIAGNOSES: 1. Methicillin-resistant Staphylococcus aureus and sepsis. Blood culture positive. 2. Osteomyelitis of the first toe of the right foot. 3. Diabetes mellitus. 4. Diabetic neuropathy. 5. Hypertension. 6. Hyperlipidemia. 7. Paroxysmal atrial fibrillation. 8. History of ablation x2, status post transesophageal echocardiogram, which was negative for endocarditis. PLAN: The patient has no cardiac arrhythmia and we will continue antibiotics as per Infectious Disease. The patient is on furosemide 20 daily and atorvastatin 20 daily, Merrem 500 mg IV q.8 hours, insulin as ordered, Eliquis 5 mg b.i.d., DuoNeb hand nebulizer therapy, Cardizem CD 240 p.o. daily, daptomycin mg IV q.24-hour. We will monitor the heart rate. We will continue to follow. Shilo Domínguez MD
--- NOTE | 2017-07-08 19:33 | PN ---
SUBJECTIVE: The patient was seen and examined at bedside on the general medical rolle. No acute events overnight. He remains afebrile and hemodynamically stable. He continues to endorse discomfort to the right foot at the surgical site, but otherwise offers no other complaints. OBJECTIVE: VITAL SIGNS: Temperature 97.6, pulse 72, blood pressure 132/88, respiratory rate 20, and oxygen saturation 98% on room air. GENERAL: No apparent distress. HEENT: PERRL. EOMI. No scleral icterus. Mild conjunctival pallor is noted. NECK: No JVD. LUNGS: Clear to auscultation. CARDIOVASCULAR: Regular rate and rhythm. Normal S1 and S2. ABDOMEN: Normoactive bowel sounds, soft, nontender, and nondistended. EXTREMITIES: Right foot with surgical dressing in place. NEUROLOGIC: Awake, alert, and oriented x3. No focal motor deficits. LABORATORY DATA: WBC of 11.6 with 77% neutrophils, hemoglobin 8.7, hematocrit 27, and platelets 507. Chemistry reviewed and unremarkable. ASSESSMENT: The patient is a 57-year-old man with insulin-dependent diabetes mellitus with diabetic neuropathy, hypertension, hyperlipidemia and history of right lower extremity osteomyelitis with history of methicillin-resistant Staphylococcus aureus bacteremia, who presented to [facility] with several day history of right foot pain, edema and erythema and was admitted for severe sepsis secondary to right foot osteomyelitis with gas gangrene. PLAN: 1. Osteomyelitis of the right foot, input from Dr. Lane of Podiatry noted and appreciated. The patient is status post operative debridement. Continue with postoperative care as per Dr. Lane and the podiatric team. Input from Dr. Heath of infectious disease also noted and appreciated. The patient remains on daptomycin 540 mg IV daily and meropenem 500 mg IV q.8 hours. 2. Severe sepsis secondary to osteomyelitis of the right foot, resolving, continue with care as per #1. 3. Acute kidney injury, resolved. 4. Hyponatremia, resolved. 5. Hypertension, blood pressure remained stable. Continue with diltiazem 240 mg p.o. daily. 6. Hyperlipidemia. Continue with Lipitor 20 mg p.o. daily. 7. Insulin-dependent diabetes mellitus with diabetic neuropathy. Continue with Humalog 70/30, 25 units subcutaneously q. a.m. and Lantus 40 units subcutaneously b.i.d. 8. Anxiety disorder. Continue with Xanax 1 mg p.o. b.i.d. 9. Paroxysmal atrial fibrillation, status post ablation. Continue with diltiazem 240 mg p.o. daily and Eliquis 5 mg p.o. b.i.d. 10. Sciatica. Continue with oxycodone 30 mg p.o. q.4 hours p.r.n. pain. 11. Prophylaxis. Continue Protonix 40 mg p.o. daily and Eliquis. CODE STATUS: Full code. Ty Monterroso MD
[2017-07-09] MEDS: Sodium Chloride 0.9% 1,000 ML IV SCH ×2 (00:02→07:16)
[2017-07-09] MEDS: oxyCODONE 30 mg Immediate Release Tab PO PRN ×5 (03:35→22:28)
--- NOTE | 2017-07-09 03:57 | OP ---
PROCEDURE DATE: 07/05/2017 PREOPERATIVE DIAGNOSIS: Right foot first metatarsal abscess. POSTOPERATIVE DIAGNOSIS: Right foot first metatarsal abscess. PROCEDURE: Right foot incision and drainage with excisional debridement of nonviable tissues. SURGEON: Dr. Roberto Lane. PENCIL MAKER: Dr. Lynda Goins. TYPE OF ANESTHESIA: IV sedation. ANESTHESIA ADMINISTERED BY: Dr. Wallace. INDICATIONS: The patient is a 57-year-old male with the above diagnosis. The patient has exhausted conservative treatment at this time and now requested surgical intervention. The patient signed consent after careful explanation of risks, benefits, complications and alternatives for surgical procedure. No guarantees were given nor implied. N.p.o. status was confirmed prior to taking the patient to the OR. PREPARATION: The patient was brought to the operating room and placed on the operating room table in supine position. After induction of IV sedation, the right foot was then prepped and draped in usual sterile manner and the procedure began. DESCRIPTION OF PROCEDURE: Attention was directed to the dorsal aspect of the right foot where open wound is noted from the previous incision and drainage surgery. A curved hemostat was used to open up the surrounding soft tissue and track along the sinus track proximally, distally, and plantarly. It was noted that dorsal and plantar ulcerations to the right foot was connected through sinus tracking medially. Utilizing a #15 blade, an approximately 3 cm lineal longitudinal incision was made to the proximal and distal aspect of the dorsal open wound extending the entire dorsal wound approximately 10 cm in length. The right foot was then squeezed from proximal to distal starting at the level of the ankle. Approximately 2 mL of purulent drainage was noted from the dorsal aspect of right foot. Next, utilizing a #15 blade and a pickup, an old nonviable soft tissue was excised and removed from the dorsal aspect of the right foot. Next, attention was then directed to the plantar aspect of the right foot where an open wound was noted. A curved hemostat was again used to open up the surrounding soft tissue and track along the sinus track proximally and distally. It was noted an old ulcerations to the right foot was connected through sinus tracking. Using a #15 blade, an approximately 3 cm longitudinal incision was made proximally and distally from the plantar wound making the entire plantar incision about 11 cm in length. Right foot was then squeezed from the proximal to distal aspects starting from the level of the ankle. Approximately 3 mL of purulent drainage was noted from the plantar aspect of the right foot. Next, utilizing a #15 blade and a pickup, old nonviable tissue was excised and removed from the ulceration at the plantar aspect of the right foot. Bone density was found to decrease and brittle at the base of the right foot metatarsal when palpated from the plantar aspect. A thick, bloody and bony fragment from the lateral aspect of the first metatarsal space measuring 1 cm x 1 cm x 0.4 cm in volume was removed from the right foot and passed from the operating field to be sent for pathology. Deep wound culture was taken, nonviable soft tissue removed from the right foot was collected and to be sent to pathology as well. Next, utilizing a post lavage of 1 liter of normal saline mixed with gentamicin was used to irrigate the surgical site. The wounds were packed with 1 inch iodoform packing, wet-to-dry 4 x 4, Kerlix and MARIEL bandage. POSTOPERATIVE CONDITION: The patient tolerated the anesthesia and procedure well and was escorted to the recovery room with vital signs stable and neurovascular status intact to the right foot. This patient will be seen and followed by Dr. Roberto Lane while the patient remains in the hospital. Lynda Goins DPM
--- NOTE | 2017-07-09 04:07 | PN ---
DATE: 07/08/2017 SUBJECTIVE: The patient is in bed, no acute distress, nontoxic. PHYSICAL EXAMINATION: VITAL SIGNS: Temperature is 97, T-max yesterday was 100.1 and blood pressure is 130/80, respiratory rate of 20, heart rate of 89. HEENT Unremarkable. NECK: Supple. LUNGS: Decreased breath sounds. HEART: Normal S1 and S2. ABDOMEN: Soft. LABORATORY DATA: Reveals a white count of 11,600. BUN of 10, creatinine of 0.5, procalcitonin 0.12. Urinalysis is noted. Microbiology reveals blood cultures from the are negative. Review of orders reveals the patient is on daptomycin which requires renewal which I will do so. The patient is also on meropenem. ASSESSMENT AND PLAN: A 57-year-old male with diabetes mellitus, diabetic neuropathy, hyperlipidemia, hypertension with methicillin-resistant Staphylococcus aureus bacteremia, right foot cellulitis, severe sepsis, osteomyelitis, gas gangrene, status post operative debridement. The patient is post procedure day #7 with methicillin-resistant Staphylococcus aureus bacteremia and methicillin-resistant Staphylococcus aureus in the foot and thickened valve with no evidence of endocarditis. The patient is refusing vancomycin because of issues of hearing. Today is day #6 of daptomycin, will need at least 14 days and the pathology shows osteomyelitis will need longer with 4-6 weeks with a CBC, SMA-18, sed rate, C-reactive protein, and CPK once weekly. Last CPK was done on the four days ago, was 60 within normal limit. We will followup with you. Volodymyr Heath MD
[2017-07-09] MEDS: Albuterol-Ipratrop 3 mg / 0.5 (3 ml) UD IH SCH ×5 (05:19→19:29)
[2017-07-09] MEDS: Meropenem 500 MG in Sodium Chloride 0.9% 100 ML IVPB SCH ×3 (05:30→22:29)
[2017-07-09 05:48] LABS: BASO # 0.02 K/mm3 (0.0-2.0); BASO % 0.2 % (0.0-3.0); EOS # 0.1 (0.0-0.7); EOS % 1.1 % (1.5-5.0); GRAN # 7.32 (1.4-6.5); GRAN % 76.3 % (50.0-68.0); HEMATOCRIT 24.3 % (42.0-52.0); LYMPH # 1.2 (1.2-3.4); LYMPH % 12.3 % (22.0-35.0); MEAN CELL VOLUME 79.7 fl (80.0-105.0); MEAN CORPUSCULAR HEMOGLOBIN 25.6 pg (25.0-35.0); MEAN CORPUSCULAR HGB CONC 32.1 g/dl (31.0-37.0); MEAN PLATELET VOLUME 7.5 fl (7.0-11.0); MONO % 10.1 % (1.0-6.0); WHITE BLOOD COUNT 9.6 10^3/ul (4.5-11.0)
[2017-07-09 05:55] LABS: INR 1.25 (0.93-1.08)
[2017-07-09 06:06] LABS: ALB/GLOB RATIO 0.5 (1.1-1.8); ALKALINE PHOSPHATASE 167 U/L (38-133); ALT/SGPT 28 U/L (7-56); AST/SGOT 40 U/L (15-59); BILIRUBIN,TOTAL 0.4 mg/dL (0.2-1.3); BLOOD UREA NITROGEN 10 mg/dL (7-21); CALCIUM 8.2 mg/dL (8.4-10.5); CARBON DIOXIDE 30 mmol/L (21-33); CHLORIDE 96 mmol/L (95-110); GFR AFRICAN-AMERICAN > 60; GLUCOSE,RANDOM 119 mg/dL (70-110); SODIUM 131 mmol/L (132-148)
[2017-07-09] MEDS: Insulin Reg-HIGH-Coverage SC SCH ×4 (07:17→23:35)
[2017-07-09] MEDS: Pantoprazole 40 mg EC Tab PO SCH (07:17)
[2017-07-09] MEDS: Insulin Detemir 100 units/ml Vial (Levemir) SC SCH ×2 (10:27→17:34)
[2017-07-09] MEDS: diltiaZEM 240 mg/24 Hours CD Cap PO SCH (10:27)
[2017-07-09] MEDS: Insulin Lispro 1 UNITS/0.01 ML SC SCH (10:29)
--- NOTE | 2017-07-09 14:09 | PN ---
DATE: 07/09/2017 SUBJECTIVE: The patient was seen and examined at bedside on the general medical rolle. No acute events overnight. He remains afebrile and hemodynamically stable. Per my discussion with the nursing staff, the patient is noted to have oozing from his right foot surgical wound, and he continues to complain of right knee pain, but otherwise offers no complaints. OBJECTIVE: VITAL SIGNS: Temperature 98.6, pulse 77, blood pressure 140/70, respiratory rate 20, and oxygen saturation 96% on room air. GENERAL: Frail man appearing older than his stated age, lying in bed, in no apparent distress. HEENT: PERRL. EOMI. No scleral icterus. Mild conjunctival pallor is noted. NECK: No JVD. LUNGS: Clear to auscultation. CARDIOVASCULAR: Regular rate and rhythm. Normal S1 and S2. ABDOMEN: Normoactive bowel sounds, soft, nontender, and nondistended. EXTREMITIES: Right foot with surgical dressing in place with scant oozing of blood, right knee with edema and tenderness to palpation. Right upper extremity with PICC line in place. NEUROLOGIC: Awake, alert, and oriented x3. No focal motor deficits. LABORATORY DATA: WBC 9.6 with 76% neutrophils, hemoglobin 7.8, hematocrit 79, and platelets 380. Sodium 131, potassium 4, chloride 96, bicarb 30. BUN 10, creatinine 0.5, glucose 119. ASSESSMENT: The patient is a 57-year-old man with insulin-dependent diabetes mellitus with diabetic neuropathy, hypertension, hyperlipidemia and history of right lower extremity osteomyelitis with history of methicillin-resistant Staphylococcus aureus bacteremia who presented [facility] with several day history of right foot pain, edema and erythema and was admitted for severe sepsis secondary to right foot osteomyelitis with gas gangrene. PLAN: 1. Osteomyelitis of the right foot, input from Dr. Lane of Podiatry noted and appreciated. Continue with postoperative care as per Dr. Lane and the podiatric team. Input from Dr. Heath of infectious disease also noted and appreciated. Continue current antimicrobial as per Dr. Heath. 2. Severe sepsis secondary to osteomyelitis of the right foot, resolving, continue with care as per #1. 3. Acute kidney injury, resolved. 4. Hyponatremia. Continue to encourage p.o. intake. We will discontinue IV fluid hydration. 5. Hypertension, blood pressure controlled. Continue with diltiazem 240 mg p.o. daily. 6. Hyperlipidemia. Continue with Lipitor 20 mg p.o. daily. 7. Insulin-dependent diabetes mellitus with diabetic neuropathy. Continue with Humalog 70/30, 25 units subcutaneously q. a.m. and Lantus 40 units subcutaneously b.i.d. 8. Anxiety disorder. Continue with Xanax 1 mg p.o. b.i.d. 9. Paroxysmal atrial fibrillation, status post ablation. Continue with diltiazem 240 mg p.o. daily. We will hold Eliquis given acute drop in hemoglobin at the surgical site. 10. Sciatica. Continue oxycodone 30 mg p.o. q.4 hours p.r.n. pain. 11. Prophylaxis. Continue with Protonix 40 mg p.o. daily. As above, we will hold Eliquis given bleeding from the surgical site. CODE STATUS: Full code. Ty Monterroso MD
--- NOTE | 2017-07-09 20:27 | PN ---
DATE: 07/09/2017 LOCATION: The patient in room 363, bed 1. REASON FOR CONSULTATION: Staph bacteremia, rule out endocarditis, history of paroxysmal atrial fibrillation status post ablation x2. SUBJECTIVE: The patient denies any chest pain, shortness of breath or palpitation. The patient's transesophageal echo did not show any vegetations and the patient denies any palpitation. PHYSICAL EXAMINATION: VITAL SIGNS: Blood pressure 140/96, earlier blood pressure was 140/70, respirations 20, pulse 78, and temperature 98.6. HEENT: Head is normocephalic. Eyes, pupils are normal. Conjunctivae are slightly pale. NECK: JVP low, carotids equal. Thorax; AP diameter normal. LUNGS: Clear. CARDIOVASCULAR: S1 and S2, regular rate and rhythm. EXTREMITIES: The patient had debridement on the right foot and he has a dressing on the foot. LABORATORY DATA: WBC 9.6, hemoglobin 7.8, hematocrit 24.3 and platelets 380. Sodium 131, potassium 4.0, BUN 10, creatinine 0.5, sugar 210. AST and ALT normal. Total protein 7.0, albumin 2.4. DIAGNOSES: Methicillin-resistant Staphylococcus aureus sepsis, blood culture was positive, osteomyelitis of the first toe of the right foot, diabetes mellitus, diabetic neuropathy, hypertension, hyperlipidemia, paroxysmal atrial fibrillation, history of ablation x2, status post transesophageal echocardiogram, which was negative for endocarditis. PLAN: The patient's rhythm has been stable and the patient had no cardiac symptoms at present. The patient continues to be on the IV antibiotics as per infectious disease. The patient on the diltiazem 240 mg p.o. daily, Eliquis 5 mg b.i.d., furosemide 20 mg daily, insulin, Lipitor 20 mg daily. We will continue present therapy. We will follow with you. Shilo Domínguez MD
--- NOTE | 2017-07-09 21:55 | PN ---
DATE: 07/09/2017 SUBJECTIVE: The patient is in bed, in no acute distress, nontoxic. PHYSICAL EXAMINATION: VITAL SIGNS: Temperature is 98, blood pressure is 140/90 and respiratory rate of 16. HEENT: Unremarkable. NECK: Supple. LUNGS: Had decreased breath sounds. HEART: Normal S1 and S2. ABDOMEN: Soft and nontender. No organomegaly. No rebound. No guarding. No masses. LABORATORY DATA: Reveals white count of 9.6, hemoglobin of 7 and platelets of 380. The patient's last sed rate is 130, which is on 07/01/2017. Chemistries reveals BUN of 10 and creatinine of 0.7. ASSESSMENT AND PLAN: A 57-year-old male with diabetes mellitus, diabetic neuropathy, hyperlipidemia, hypertension, methicillin-resistant Staphylococcus aureus bacteremia, right foot cellulitis with severe sepsis, osteomyelitis, gangrene status post operative debridement. Post procedure day #8 with methicillin-resistant Staphylococcus aureus bacteremia and methicillin-resistant Staphylococcus aureus in the foot. Currently on daptomycin day #7, will need at least 14 days and the pathology shows osteomyelitis, will need 4 to 6 weeks for the osteomyelitis, and recommend CBC, SMA-18, sed rate, C-reactive protein, and CPK once weekly. Dr. Ty Monterroso's note is reviewed. Volodymyr Heath MD
[2017-07-10] MEDS: Albuterol-Ipratrop 3 mg / 0.5 (3 ml) UD IH SCH ×7 (00:34→23:30)
[2017-07-10] MEDS: oxyCODONE 30 mg Immediate Release Tab PO PRN ×4 (03:11→18:42)
[2017-07-10] MEDS: Meropenem 500 MG in Sodium Chloride 0.9% 100 ML IVPB SCH ×2 (05:50→14:19)
[2017-07-10] MEDS: Pantoprazole 40 mg EC Tab PO SCH (05:51)
[2017-07-10 06:54] LABS: BASO # 0.01 K/mm3 (0.0-2.0); BASO % 0.1 % (0.0-3.0); EOS # 0.1 (0.0-0.7); EOS % 1.3 % (1.5-5.0); GRAN # 6.62 (1.4-6.5); GRAN % 71.1 % (50.0-68.0); HEMATOCRIT 25.7 % (42.0-52.0); LYMPH # 1.7 (1.2-3.4); LYMPH % 18.7 % (22.0-35.0); MEAN CELL VOLUME 79.3 fl (80.0-105.0); MEAN CORPUSCULAR HEMOGLOBIN 25.3 pg (25.0-35.0); MEAN CORPUSCULAR HGB CONC 31.9 g/dl (31.0-37.0); MEAN PLATELET VOLUME 7.8 fl (7.0-11.0); MONO # 0.8 (0.1-0.6); MONO % 8.8 % (1.0-6.0); RED CELL DISTRIBUTION WIDTH 16.1 % (11.5-14.5); WHITE BLOOD COUNT 9.3 10^3/ul (4.5-11.0)
[2017-07-10 07:09] LABS: ALB/GLOB RATIO 0.6 (1.1-1.8); ALKALINE PHOSPHATASE 170 U/L (38-133); ALT/SGPT 29 U/L (7-56); AST/SGOT 36 U/L (15-59); BILIRUBIN,TOTAL 0.3 mg/dL (0.2-1.3); BLOOD UREA NITROGEN 11 mg/dL (7-21); CALCIUM 8.5 mg/dL (8.4-10.5); CARBON DIOXIDE 29 mmol/L (21-33); CHLORIDE 100 mmol/L (98-107); GFR AFRICAN-AMERICAN > 60; GLUCOSE,RANDOM 62 mg/dL (70-110); SODIUM 134 mmol/L (132-148); TOTAL PROTEIN 7.3 g/dL (5.8-8.3)
[2017-07-10 07:33] LABS: INR 1.2 (0.93-1.08)
[2017-07-10] MEDS: Insulin Reg-HIGH-Coverage SC SCH ×4 (07:45→21:51)
[2017-07-10] MEDS: Insulin Detemir 100 units/ml Vial (Levemir) SC SCH ×2 (07:46→18:35)
[2017-07-10] MEDS: Insulin Lispro 1 UNITS/0.01 ML SC SCH (08:49)
--- NOTE | 2017-07-10 10:31 | PN ---
DATE: SUBJECTIVE: The patient is seen and examined at the bedside on the general medical rolle. No acute events overnight. He remains afebrile and hemodynamically stable. The patient remained hospitalized for continue IV antibiotics for treatment of sepsis secondary to right foot osteomyelitis with MRSA bacteriemia. At present, we are awaiting blood cultures to result as negative and for the podiatric team to treat the patient's right foot osteomyelitis to their satisfaction given that he has required multiple debridements due to poor wound healing. OBJECTIVE: VITAL SIGNS: Temperature 97.6, pulse 70, blood pressure 123/62, respiratory rate 18, and oxygen saturation 96% on room air. GENERAL: Frail man appearing older than his stated age, lying in bed, in no apparent distress. HEENT: PERRL. EOMI. No scleral icterus. Mild conjunctival pallor is noted. NECK: No JVD. LUNGS: Clear to auscultation. CARDIOVASCULAR: Regular rate and rhythm. Normal S1 and S2. ABDOMEN: Normoactive bowel sounds, soft, nontender, and nondistended. EXTREMITIES: Right foot with surgical dressing in place with scant oozing. Right upper extremity with PICC line in place. NEUROLOGIC: Awake, alert, and oriented x3. No focal motor deficits. LABORATORY DATA: WBC 9.3 with 71% neutrophils, hemoglobin 8.2, hematocrit 26, and platelets 45. Chemistry reviewed and unremarkable. ASSESSMENT: The patient is a 57-year-old man with insulin-dependent diabetes mellitus with diabetic neuropathy, hypertension, hyperlipidemia and a history of right lower extremity osteomyelitis with history of methicillin-resistant Staphylococcus aureus bacteremia who presented to [facility] with several-day history of right foot pain, edema and erythema and who was admitted for severe sepsis secondary to right foot osteomyelitis with gas gangrene. PLAN: 1. Osteomyelitis of the right foot, input from Dr. Lane noted and appreciated. Continue with local wound care and postoperative care as per Dr. Lane and the podiatric team. Input from Dr. Heath of infectious disease also noted and appreciated. Patient remains on daptomycin, however, per my discussion with the leather case finisher this morning, daptomycin may be an issue for acceptance to rehab facilities. Will discuss with Dr. Heath the possibility of utilizing Teflaro. 2. Severe sepsis secondary to osteomyelitis of the right foot, resolving, continue with care as per #1. 3. Acute kidney injury, resolved. 4. Hyponatremia, resolved. 5. Hypertension, blood pressure controlled. Continue with diltiazem 240 mg p.o. daily. 6. Hyperlipidemia. Continue with Lipitor 20 mg p.o. daily. 7. Insulin-dependent diabetes mellitus with diabetic neuropathy. Continue with Humalog 70/30, 25 units subcutaneously q. a.m. and Lantus 40 units subcutaneously b.i.d. 8. Anxiety disorder. Continue with Xanax 1 mg p.o. b.i.d. 9. Paroxysmal atrial fibrillation, status post ablation. Continue with diltiazem 240 mg p.o. daily. We will continue to hold Eliquis given recent drop in hemoglobin due to bleed at the surgical site. 10. Sciatica. Continue with oxycodone 30 mg p.o. q.4 hours p.r.n. pain. 11. Prophylaxis. Continue with Protonix 40 mg p.o. daily. CODE STATUS: FULL CODE. Ty Monterroso MD
[2017-07-10] MEDS: diltiaZEM 240 mg/24 Hours CD Cap PO SCH (10:45)
--- NOTE | 2017-07-10 13:11 | PN ---
DATE: 07/09/2017 TIME OF PROGRESS NOTE: 0700 hours. LOCATION: The patient is in room 363, bed 1. SUBJECTIVE: The patient is seen at the bedside sitting in a chair, we had him moved to the bed for purposes of examination of the wound. He reports no complaints of pain in the foot. The bandage has been oozing. There is a wet to dry bandage and this is not unexpected. He continues to complain of pain in his right knee and he reports a failed attempt of an MRI over the weekend. He continues on IV antibiotic per infectious disease now with day number 7 or 8. He became hospitalized on July 01 through the ED, at which time he had an incision and drainage of the dorsal plantar wound by Dr. Wilson and he was taken back to the OR on July 05 by me where we did an extended debridement on both the dorsal and plantar wounds to include remove resection of osteomyelitic bone from the plantar aspect of the foot. New wound and bone cultures as well as bone pathology was obtained at that time. OBJECTIVE: The patient is alert and oriented x3. Morning vital signs are stable. He is in no acute distress except for the right knee pain. He continues to fair, but significantly resistant to motion of the right knee joint. Once in bed and was the right leg elevated, we removed all of the wet to dry dressings from previous day. The iodoform packing is removed from both the dorsal and plantar wound. There is no odor. There is no active discharge even with significant manipulation of the wound margins and foot. There is no pain with manipulation of the foot or the wound margins and inadvertent motion of the leg at the knee joint occurs. There is no lymphangitis. The right foot is still edematous with some erythema. LABORATORY DATA: As of this morning, the WBC has reduced further to 9.6 beginning to enter the normal range. There is still significant shift in his differential. The postop x-rays from 07/05/2017 are reviewed and they show the resection of the lytic bone from the plantar aspect of the first metatarsal cuneiform joint and the significant packing of the iodoform gauze that is in place and found the x-rays are taken suggestive of gas. ASSESSMENT AND PLAN: The wound is lavaged with saline, soaked sponges and cleaned and then dried. The dressing changes will be performed daily starting today by me. The wound appears dry and so we are discontinuing the saline wet to dry dressings with iodoform packing. We are starting a simple dressing of a sterile gauze with Curex antimicrobial wound ointment to be applied to the dorsal and plantar wounds covered with ABDs and a dry bandages. Explained to the nurses at the bedside and will be performed tomorrow by the resident and by the nurses on Sunday. A tube of Curex ointment is left at the patient's bedside. We anticipate a long progressive wound healing stage. The patient is counseled as to the possible need for additional debridements should more bony destruction occur if the antibiotic is capable of sterilizing the bone then we can anticipate some eventual wound healing, possible secondary closures will be considered after another couple of weeks of antibiotic therapy depending on subsequent testing. The patient is counseled still as to the risk of the possible loss of ray if additional bony debridement is required. I am still concerned by the patient's knee pain. The knee x-rays are obtained last week are reviewed and they are negative for destructed changes of others significant suprapatellar effusion noted. We will speak to Dr. Vizcaino possible need for an orthopedic consultation for evaluation of the right knee and possible drainage of the right knee by needle may be considered. We will continue daily wound changes or continue the IV antibiotic per Dr. Heath and reevaluate the wound in [address] DPM
--- NOTE | 2017-07-10 13:18 | CP.PCM.PN ---
Subjective - Date & Time of Evaluation Date of Evaluation: 07/10/17 Time of Evaluation: 13:15 - Subjective Subjective: 57 year old male patient 5 days s/p right foot excisional debridement of non- viable tissue was seen at bedside this AM. Patient was resting comfortably in bed with no acute overnight distress. Dressing to right foot cdi. Patient denies of any N/V/F/C or SOB today Objective - Vital Signs/Intake and Output Vital Signs (last 24 hours): Temp Pulse Resp BP Pulse Ox 97.6 F 70 18 123/62 96 07/10/17 08:10 07/10/17 10:45 07/10/17 08:10 07/10/17 10:45 07/10/17 08:10 Intake and Output: 07/10/17 07/10/17 06:59 18:59 Intake Total 100 300 Output Total 1175 Balance -1075 300 - Medications Medications: Current Medications Acetaminophen (Tylenol 325mg Tab) 650 mg PO Q4H PRN PRN Reason: Fever >100.4 F Last Admin: 07/09/17 17:28 Dose: 650 mg Albuterol/Ipratropium (Duoneb 3 Mg/0.5 Mg (3 Ml) Ud) 3 ml IH [id number] [facility] Last Admin: 07/10/17 07:37 Dose: Not Given Albuterol/Ipratropium (Duoneb 3 Mg/0.5 Mg (3 Ml) Ud) 3 ml IH Q2H PRN PRN Reason: Shortness of Breath Alprazolam (Xanax) 1 mg PO BID PRN; Protocol PRN Reason: Anxiety Last Admin: 07/09/17 22:27 Dose: 1 mg Apixaban (Eliquis) 5 mg PO BID POWER PRN Reason: Protocol Last Admin: 07/08/17 17:39 Dose: 5 mg Atorvastatin Calcium (Lipitor) 20 mg PO DIN [facility] Last Admin: 07/09/17 17:32 Dose: 20 mg Diltiazem HCl (Cardizem Cd) 240 mg PO DAILY [facility] Last Admin: 07/10/17 10:45 Dose: 240 mg Docusate Sodium (Colace) 100 mg PO BID [facility] Last Admin: 07/10/17 10:44 Dose: 100 mg Furosemide (Lasix) 20 mg PO DAILY [facility] Last Admin: 07/10/17 10:44 Dose: 20 mg Meropenem 500 mg/ Sodium (Chloride) 100 mls @ 100 mls/hr IVPB Q8 POWER PRN Reason: Protocol Stop: 07/10/17 22:01 Last Admin: 07/10/17 05:50 Dose: 100 mls/hr Daptomycin 540 mg/ Sodium (Chloride) 100 mls @ 200 mls/hr IV Q24H [facility] Stop: 07/13/17 22:16 Last Admin: 07/09/17 23:03 Dose: 200 mls/hr Insulin Detemir (Levemir) 40 unit SC BID [facility] Last Admin: 07/10/17 07:46 Dose: Not Given Insulin Human Lispro (Humalog) 25 units SC BRK [facility] Last Admin: 07/10/17 08:49 Dose: Not Given Insulin Human Regular (Humulin R High) 0 units SC ACHS [facility] PRN Reason: Protocol Last Admin: 07/10/17 11:55 Dose: 4 units Oxycodone HCl (Oxycodone Immediate Release Tab) 30 mg PO Q4H PRN PRN Reason: Pain, severe (8-10) Last Admin: 07/10/17 10:50 Dose: 30 mg Pantoprazole Sodium (Protonix Ec Tab) 40 mg PO 0600 [facility] Last Admin: 07/10/17 05:51 Dose: 40 mg - Labs Labs: 07/10/17 06:15 07/10/17 06:15 PT 13.0 Seconds (9.9-11.8) H 07/10/17 06:15 INR 1.20 (0.93-1.08) H 07/10/17 06:15 APTT 42.9 Seconds (23.7-30.8) H 07/01/17 13:08 - Constitutional Appears: Well, Non-toxic, No Acute Distress - Head Exam Head Exam: ATRAUMATIC - Extremities Exam Additional comments: Right lower extremity focused exam: Derm: Open wound noted to dorsum of right foot measuring 10cmx 3cm x 1.5cm with mix of fibrotic and granular base. No purulent drainage noted. Moderate amount of sero-sanguinous drainage is noted. No mal-odor noted. Probes to bone. Erythema appears decreased. Another open wound noted to plantar aspect of right foot measuring 10cm x 3.5cm x 0.3cm with 50% granular base 50% fibrotic. Mild serous drainage. No purulent discharge. No mal-odor, No PTB. Slight maceration noted to wound edges noted. Vasc:DP and PT pulses non-palpable. Skin temperature increased to the right lower extremity Neuro: Gross sensation diminished Ortho: Pain on palpation to right foot and leg - Neurological Exam Neurological Exam: Alert, Awake - Psychiatric Exam Psychiatric exam: Normal Affect, Normal Mood - Skin Skin Exam: Normal Color, Warm Assessment and Plan - Assessment and Plan (Free Text) Assessment: 57 year old male patient 5 days s/p right foot excisional debridement of non- viable tissue Plan: Patient examined and evaluated Discussed in detail with attending, Dr. Lane Chart, labs, vitals reviewed; afebrile Right foot WCX; MRSA Right knee Xray consistent with DJD, no acute fx noted Right foot cleansed with normal sterile saline, packed with Curex , 4x4, ABD and Kerlix to dorsum & plantar aspect Continue IV Abx as per ID Podiatry will follow patient while in house
--- NOTE | 2017-07-10 14:19 | PN ---
DATE: REASON FOR CONSULTATION AND FOLLOWUP: Staphylococcus bacteremia, rule out endocarditis; history of paroxysmal atrial fibrillation status post radiofrequency ablation, ANJU negative for endocarditis. SUBJECTIVE: Patient having chest pain, shortness of breath, denies any palpitation, complaint of right knee pain. OBJECTIVE: GENERAL: Sitting in the bed, left foot is in dressing, mild scar noted and bruised on the right knee. VITAL SIGNS: Temperature is afebrile, heart rate 70, blood pressure 123/62. HEENT: PERRLA intact. NECK: Supple. No carotid bruits. No thyromegaly. CHEST: Clear to auscultation. HEART: S1 and S2 regular. ABDOMEN: Soft. EXTREMITIES: Clubbing and cyanosis negative. LABORATORY DATA: Blood workup as follows; WBC 9.8, hemoglobin 8.8, hematocrit 25.7, platelet count 485. Chemistry shows sodium 134, potassium 4, chloride 100, carbon dioxide 20, anion gap of 9, BUN 11, creatinine 0.5, total protein 7.3, albumin 2.0, albumin globulin ratio 0.6. IMPRESSION: This is a 57-year-old male with past medical history significant for paroxysmal atrial fibrillation status post radiofrequency ablation admitted with methicillin-resistant Staphylococcus aureus sepsis. Blood culture was positive. Osteomyelitis of the right foot toe, diabetes, hypertension, hyperlipidemia, diabetic nephropathy. Transesophageal echocardiogram was negative for endocarditis. Denies any chest pain, but wanted to be evaluated by orthopedic surgeon. Denies any chest pain, shortness of breath, or palpitation. RECOMMENDATIONS: Ortho evaluation done by possibly Dr. Flor Perez. Consult written by Dr. Ty Monterroso. Interim continue Cardizem. Continue daptomycin. Continue albuterol. Continue Eliquis. Continue Lasix. Continue atorvastatin. We will follow with you. Thank you Dr. Monterroso for opportunity in taking care of Ricardo Rivas. Should the patient needs DTaP, we will hold apixaban 24 hours. Reports ordered for physician if has complication. Shilo Simental MD
[2017-07-10] MEDS ORDERED: Lidocaine 2% Inj (20ml) IJ STA (14:31)
[2017-07-10] MEDS ORDERED: HYDROmorphone 1 mg/ml ISec IVP STA (15:18)
[2017-07-10 15:46] LABS: FLUID TYPE SYNOVIAL FLUID
--- NOTE | 2017-07-10 16:45 | CP.PCM.CON ---
<Lynda Goins - Last Filed: 07/10/17 16:37> History of Present Illness - History of Present Illness History of Present Illness: Orthopedic consult note for Dr. Christensen 57 year old male patient with PMHx of HTN, DM, GERD, diabetic peripheral neuropathy, peripheral vascular disease was seen at bedside with attending Dr. Christensen concerning right knee swelling and pain. Patient explained that the knee swelling and pain started about 8 days ago and still has pain. Patient denies of any trauma to the right knee. Dr. Christensen explained that we plan to take him for surgery tomorrow at 3PM for right knee arthroscopic washout Bedside Needle aspiration performed; cultures sent out Patient agrees with the surgical plan Past Patient History - Infectious Disease Hx of Infectious Diseases: None - Tetanus Immunizations Tetanus Immunization: Unknown - Past Social History Smoking Status: Never Smoked - CARDIAC Hx Cardiac Disorders: Yes Hx Atrial Fibrillation: Yes Hx Hypertension: Yes Hx Peripheral Vascular Disease: Yes Other/Comment: Cardiac ablation: 07/27/14 and 10/25 - PULMONARY Hx Respiratory Disorders: No - NEUROLOGICAL Hx Neurological Disorder: Yes Other/Comment: Peripheral Neuropathy BLE - HEENT Hx HEENT Problems: No - RENAL Hx Chronic Kidney Disease: No - ENDOCRINE/METABOLIC Hx Endocrine Disorders: Yes (diabetes) Hx Diabetes Mellitus Type 1: Yes - HEMATOLOGICAL/ONCOLOGICAL Hx Blood Transfusions: No Hx Blood Transfusion Reaction: No - INTEGUMENTARY Other/Comment: bilateral great toe wounds - MUSCULOSKELETAL/RHEUMATOLOGICAL Hx Musculoskeletal Disorders: No - GASTROINTESTINAL Hx Gastrointestinal Disorders: Yes Hx Gastroesophageal Reflux: Yes - GENITOURINARY/GYNECOLOGICAL Hx Genitourinary Disorders: No - PSYCHIATRIC Hx Psychophysiologic Disorder: No Hx Substance Use: No - SURGICAL HISTORY Hx Surgeries: No - ANESTHESIA Hx Anesthesia Reactions: No Hx Malignant Hyperthermia: No Meds Allergies/Adverse Reactions: Allergies Allergy/AdvReac Type Severity Reaction Status Date / Time No Known Allergies Allergy Verified 05/05/13 00:42 - Medications Medications: Current Medications Acetaminophen (Tylenol 325mg Tab) 650 mg PO Q4H PRN PRN Reason: Fever >100.4 F Last Admin: 07/09/17 17:28 Dose: 650 mg Albuterol/Ipratropium (Duoneb 3 Mg/0.5 Mg (3 Ml) Ud) 3 ml IH [id number] POWER Last Admin: 07/10/17 13:22 Dose: Not Given Albuterol/Ipratropium (Duoneb 3 Mg/0.5 Mg (3 Ml) Ud) 3 ml IH Q2H PRN PRN Reason: Shortness of Breath Alprazolam (Xanax) 1 mg PO BID PRN; Protocol PRN Reason: Anxiety Last Admin: 07/09/17 22:27 Dose: 1 mg Apixaban (Eliquis) 5 mg PO BID [facility] PRN Reason: Protocol Last Admin: 07/08/17 17:39 Dose: 5 mg Atorvastatin Calcium (Lipitor) 20 mg PO DIN [facility] Last Admin: 07/09/17 17:32 Dose: 20 mg Diltiazem HCl (Cardizem Cd) 240 mg PO DAILY [facility] Last Admin: 07/10/17 10:45 Dose: 240 mg Docusate Sodium (Colace) 100 mg PO BID [facility] Last Admin: 07/10/17 10:44 Dose: 100 mg Furosemide (Lasix) 20 mg PO DAILY [facility] Last Admin: 07/10/17 10:44 Dose: 20 mg Daptomycin 540 mg/ Sodium (Chloride) 100 mls @ 200 mls/hr IV Q24H [facility] Stop: 07/13/17 22:16 Last Admin: 07/09/17 23:03 Dose: 200 mls/hr Insulin Detemir (Levemir) 40 unit SC BID [facility] Last Admin: 07/10/17 07:46 Dose: Not Given Insulin Human Lispro (Humalog) 25 units SC BRK [facility] Last Admin: 07/10/17 08:49 Dose: Not Given Insulin Human Regular (Humulin R High) 0 units SC ACHS [facility] PRN Reason: Protocol Last Admin: 07/10/17 11:55 Dose: 4 units Oxycodone HCl (Oxycodone Immediate Release Tab) 30 mg PO Q4H PRN PRN Reason: Pain, severe (8-10) Last Admin: 07/10/17 14:51 Dose: 30 mg Pantoprazole Sodium (Protonix Ec Tab) 40 mg PO 0600 [facility] Last Admin: 07/10/17 05:51 Dose: 40 mg Physical Exam - Constitutional Appears: Well, Non-toxic, No Acute Distress - Eye Exam Eye Exam: EOMI Pupil Exam: NORMAL ACCOMODATION, PERRL - ENT Exam ENT Exam: Mucous Membranes Moist - Respiratory Exam Respiratory Exam: NORMAL BREATHING PATTERN - Cardiovascular Exam Cardiovascular Exam: REGULAR RHYTHM, +S1, +S2 - GI/Abdominal Exam GI & Abdominal Exam: Soft - Extremities Exam Additional comments: Fluctuant swelling noted to right knee on palpation. No erythema is noted. Superficial abrasion lesion noted to right knee measuring 2cm x 1cm x 0.1cm, no mal-odor, no drainage, no PTB. - Neurological Exam Neurological exam: Alert, Oriented x3 - Psychiatric Exam Psychiatric exam: Normal Affect, Normal Mood - Skin Skin Exam: Normal Color, Warm Results - Vital Signs Recent Vital Signs: Last Vital Signs Temp 99.9 F H 07/10/17 16:00 Pulse 76 07/10/17 16:00 Resp 19 07/10/17 16:00 BP 168/88 H 07/10/17 16:00 Pulse Ox 97 07/10/17 16:00 - Labs Result Diagrams: 07/10/17 06:15 07/10/17 06:15 Labs: Laboratory Results - last 24 hr 07/09/17 07/09/17 07/10/17 16:58 21:54 06:15 WBC 9.3 RBC 3.24 L Hgb 8.2 L Hct 25.7 L MCV 79.3 L MCH 25.3 MCHC 31.9 RDW 16.1 H Plt Count 485 H MPV 7.8 Gran % 71.1 H Lymph % (Auto) 18.7 L Fleming % (Auto) 8.8 H Eos % (Auto) 1.3 L Baso % (Auto) 0.1 Gran # 6.62 H Lymph # 1.7 Fleming # 0.8 H Eos # 0.1 Baso # 0.01 PT INR Sodium Potassium Chloride Carbon Dioxide Anion Gap BUN Creatinine Est GFR ( Amer) Est GFR (Non-Af Amer) POC Glucose (mg/dL) 107 129 H Random Glucose Calcium Total Bilirubin AST ALT Alkaline Phosphatase Total Protein Albumin Globulin Albumin/Globulin Ratio Fluid Type 07/10/17 07/10/17 07/10/17 06:15 06:15 08:02 WBC RBC Hgb Hct MCV MCH MCHC RDW Plt Count MPV Gran % Lymph % (Auto) Fleming % (Auto) Eos % (Auto) Baso % (Auto) Gran # Lymph # Fleming # Eos # Baso # PT 13.0 H INR 1.20 H Sodium 134 Potassium 4.0 Chloride 100 Carbon Dioxide 29 Anion Gap 9 L BUN 11 Creatinine 0.5 Est GFR ( Amer) > 60 Est GFR (Non-Af Amer) > 60 POC Glucose (mg/dL) 61 L Random Glucose 62 L Calcium 8.5 Total Bilirubin 0.3 AST 36 ALT 29 Alkaline Phosphatase 170 H Total Protein 7.3 Albumin 2.6 L Globulin 4.7 Albumin/Globulin Ratio 0.6 L Fluid Type 07/10/17 07/10/17 07/10/17 11:35 15:30 16:16 WBC RBC Hgb Hct MCV MCH MCHC RDW Plt Count MPV Gran % Lymph % (Auto) Fleming % (Auto) Eos % (Auto) Baso % (Auto) Gran # Lymph # Fleming # Eos # Baso # PT INR Sodium Potassium Chloride Carbon Dioxide Anion Gap BUN Creatinine Est GFR ( Amer) Est GFR (Non-Af Amer) POC Glucose (mg/dL) 214 H 233 H Random Glucose Calcium Total Bilirubin AST ALT Alkaline Phosphatase Total Protein Albumin Globulin Albumin/Globulin Ratio Fluid Type Synovial fluid Assessment & Plan - Assessment and Plan (Free Text) Assessment: 57 yo male patient presenting with right septic knee Plan: Patient was seen at seen, evaluated and treated with all questions and concerns addressed labs and vitals reviewed Dr. Christensen performed bedside needle aspiration of right knee with sterile equipments; drained 55cc of synovial fluid which was sent for culture / WBC Patient is scheduled for right knee arthroscopic washout tomorrow 3:[address] Christensen Patient to be NPO past midnight Written surgical consent obtained and is in chart <Derrick Christensen - Last Filed: 07/12/17 13:39> Meds - Medications Medications: Current Medications Acetaminophen (Tylenol 325mg Tab) 650 mg PO Q4H PRN PRN Reason: Fever >100.4 F Last Admin: 07/09/17 17:28 Dose: 650 mg Albuterol/Ipratropium (Duoneb 3 Mg/0.5 Mg (3 Ml) Ud) 3 ml IH [id number] POWER Last Admin: 07/12/17 11:10 Dose: Not Given Albuterol/Ipratropium (Duoneb 3 Mg/0.5 Mg (3 Ml) Ud) 3 ml IH Q2H PRN PRN Reason: Shortness of Breath Alprazolam (Xanax) 1 mg PO BID PRN; Protocol PRN Reason: Anxiety Last Admin: 07/11/17 19:34 Dose: 1 mg Apixaban (Eliquis) 5 mg PO BID [facility] PRN Reason: Protocol Last Admin: 07/08/17 17:39 Dose: 5 mg Atorvastatin Calcium (Lipitor) 20 mg PO DIN [facility] Last Admin: 07/11/17 17:25 Dose: 20 mg Diltiazem HCl (Cardizem Cd) 240 mg PO DAILY [facility] Last Admin: 07/12/17 09:36 Dose: 240 mg Docusate Sodium (Colace) 100 mg PO BID [facility] Last Admin: 07/12/17 09:36 Dose: 100 mg Furosemide (Lasix) 20 mg PO DAILY [facility] Last Admin: 07/12/17 09:31 Dose: 20 mg Hydromorphone HCl (Dilaudid) 0.5 mg IVP Q15M PRN PRN Reason: Pain, moderate (4-7) Daptomycin 540 mg/ Sodium (Chloride) 100 mls @ 200 mls/hr IV Q24H [facility] Stop: 07/13/17 22:16 Last Admin: 07/11/17 21:36 Dose: 200 mls/hr Insulin Detemir (Levemir) 40 unit SC BID [facility] Last Admin: 07/12/17 09:36 Dose: 40 unit Insulin Human Lispro (Humalog) 25 units SC BRK [facility] Last Admin: 07/12/17 09:37 Dose: 25 units Insulin Human Regular (Humulin R High) 0 units SC ACHS [facility] PRN Reason: Protocol Last Admin: 07/12/17 09:37 Dose: 2 units Oxycodone HCl (Oxycodone Immediate Release Tab) 30 mg PO Q4H PRN PRN Reason: Pain, severe (8-10) Last Admin: 07/12/17 10:17 Dose: 30 mg Pantoprazole Sodium (Protonix Ec Tab) 40 mg PO 0600 [facility] Last Admin: 07/12/17 05:35 Dose: 40 mg Results - Vital Signs Recent Vital Signs: Last Vital Signs Temp 98 F 07/12/17 07:52 Pulse 73 07/12/17 09:36 Resp 20 07/12/17 07:52 BP 155/74 H 07/12/17 09:36 Pulse Ox 98 07/12/17 07:52 - Labs Result Diagrams: 07/12/17 06:05 07/12/17 06:05 Labs: Laboratory Results - last 24 hr 07/11/17 07/11/17 07/12/17 17:35 21:25 06:05 WBC 10.0 RBC 3.17 L Hgb 8.2 L Hct 25.2 L MCV 79.5 L MCH 25.9 MCHC 32.5 RDW 16.2 H Plt Count 411 MPV 7.5 Sodium Potassium Chloride Carbon Dioxide Anion Gap BUN Creatinine Est GFR ( Amer) Est GFR (Non-Af Amer) POC Glucose (mg/dL) 101 190 H Random Glucose Calcium Total Bilirubin AST ALT Alkaline Phosphatase Total Protein Albumin Globulin Albumin/Globulin Ratio 07/12/17 07/12/17 07/12/17 06:05 07:22 11:10 WBC RBC Hgb Hct MCV MCH MCHC RDW Plt Count MPV Sodium 135 Potassium 4.1 Chloride 100 Carbon Dioxide 29 Anion Gap 10 BUN 8 Creatinine 0.4 L Est GFR ( Amer) > 60 Est GFR (Non-Af Amer) > 60 POC Glucose (mg/dL) 187 H 130 H Random Glucose 174 H Calcium 8.3 L Total Bilirubin 0.4 AST 39 ALT 19 Alkaline Phosphatase 149 H Total Protein 7.5 Albumin 2.5 L Globulin 5.1 Albumin/Globulin Ratio 0.5 L
[2017-07-10 17:47] LABS: SYNOVIAL FLUID TOTAL COUNT 100 (0-0)
[2017-07-10] MEDS ORDERED: oxyCODONE 15 mg Immediate Release Tab PO STA (20:28)
--- NOTE | 2017-07-10 20:34 | CP.PCM.PN ---
Subjective - Date & Time of Evaluation Date of Evaluation: 07/10/17 Time of Evaluation: 20:29 - Subjective Subjective: Patient was seen at bedside. Complains of right knee pain. S/P right knee aspiration today. S/P Right foot debridement. His pain medication is not due yet. Earlier, he received one time dose of dilaudid for same pain. Has no other complaints now. Medical record was reviewed. This 57 year old white male was admitted with lethargy,malaise, right foot pain, subjective fever. Has PMH of IDDM, HTN,HLD,MRSA. Objective - Vital Signs/Intake and Output Vital Signs (last 24 hours): Temp Pulse Resp BP Pulse Ox 99.9 F H 76 19 168/88 H 97 07/10/17 16:00 07/10/17 16:00 07/10/17 16:00 07/10/17 16:00 07/10/17 16:00 Intake and Output: 07/10/17 07/11/17 18:59 06:59 Intake Total 300 Balance 300 - Medications Medications: Current Medications Acetaminophen (Tylenol 325mg Tab) 650 mg PO Q4H PRN PRN Reason: Fever >100.4 F Last Admin: 07/09/17 17:28 Dose: 650 mg Albuterol/Ipratropium (Duoneb 3 Mg/0.5 Mg (3 Ml) Ud) 3 ml IH [id number] [facility] Last Admin: 07/10/17 19:34 Dose: Not Given Albuterol/Ipratropium (Duoneb 3 Mg/0.5 Mg (3 Ml) Ud) 3 ml IH Q2H PRN PRN Reason: Shortness of Breath Alprazolam (Xanax) 1 mg PO BID PRN; Protocol PRN Reason: Anxiety Last Admin: 07/09/17 22:27 Dose: 1 mg Apixaban (Eliquis) 5 mg PO BID [facility] PRN Reason: Protocol Last Admin: 07/08/17 17:39 Dose: 5 mg Atorvastatin Calcium (Lipitor) 20 mg PO DIN [facility] Last Admin: 07/10/17 18:34 Dose: 20 mg Diltiazem HCl (Cardizem Cd) 240 mg PO DAILY [facility] Last Admin: 07/10/17 10:45 Dose: 240 mg Docusate Sodium (Colace) 100 mg PO BID [facility] Last Admin: 07/10/17 18:34 Dose: 100 mg Furosemide (Lasix) 20 mg PO DAILY [facility] Last Admin: 07/10/17 10:44 Dose: 20 mg Daptomycin 540 mg/ Sodium (Chloride) 100 mls @ 200 mls/hr IV Q24H [facility] Stop: 07/13/17 22:16 Last Admin: 07/09/17 23:03 Dose: 200 mls/hr Insulin Detemir (Levemir) 40 unit SC BID [facility] Last Admin: 07/10/17 18:35 Dose: 40 unit Insulin Human Lispro (Humalog) 25 units SC BRK [facility] Last Admin: 07/10/17 08:49 Dose: Not Given Insulin Human Regular (Humulin R High) 0 units SC ACHS [facility] PRN Reason: Protocol Last Admin: 07/10/17 18:35 Dose: 4 units Oxycodone HCl (Oxycodone Immediate Release Tab) 30 mg PO Q4H PRN PRN Reason: Pain, severe (8-10) Last Admin: 07/10/17 18:42 Dose: 30 mg Pantoprazole Sodium (Protonix Ec Tab) 40 mg PO 0600 [facility] Last Admin: 07/10/17 05:51 Dose: 40 mg - Labs Labs: 07/10/17 06:15 07/10/17 06:15 PT 13.0 Seconds (9.9-11.8) H 07/10/17 06:15 INR 1.20 (0.93-1.08) H 07/10/17 06:15 APTT 42.9 Seconds (23.7-30.8) H 07/01/17 13:08 Micro Results 07/07/17 12:30 Blood Blood Culture - Preliminary NO GROWTH AFTER 3 DAYS 07/07/17 12:50 Blood Blood Culture - Preliminary NO GROWTH AFTER 3 DAYS 07/06/17 04:00 Abscess - Foot Gram Stain - Final 07/06/17 04:00 Abscess - Foot Anaerobic Culture - Final NO ANAEROBES ISOLATED. 07/06/17 04:00 Abscess - Foot Wound Culture - Final Methicillin Resistant S Aureus 07/06/17 04:00 Foot - Right Gram Stain - Final 07/06/17 04:00 Foot - Right Anaerobic Culture - Final NO ANAEROBES ISOLATED. 07/06/17 04:00 Foot - Right Wound Culture - Final Methicillin Resistant S Aureus 07/07/17 12:10 Urine Urine Culture - Final No Growth (<1,000 CFU/ML) 07/03/17 12:18 Blood-Venous Blood Culture - Final NO GROWTH AFTER 5 DAYS 07/03/17 12:18 Blood-Venous Gram Stain - Final TEST NOT PERFORMED 07/03/17 12:18 Blood-Venous Blood Culture - Final NO GROWTH AFTER 5 DAYS 07/03/17 12:18 Blood-Venous Gram Stain - Final TEST NOT PERFORMED 07/01/17 19:48 Foot - Right Gram Stain - Final 07/01/17 19:48 Foot - Right Anaerobic Culture - Final NO ANAEROBES ISOLATED. 07/01/17 19:48 Foot - Right Wound Culture - Final Methicillin Resistant S Aureus 07/01/17 13:08 Blood S.aureus & Coag-Neg Staph PNA FISH - Final 07/01/17 13:08 Blood Blood Culture - Final Methicillin Resistant S Aureus 07/01/17 13:08 Blood Gram Stain - Final 07/02/17 00:53 Urine Urine Culture - Final No Growth (<1,000 CFU/ML) 07/01/17 13:30 Blood Blood Culture - Preliminary Staphylococcus Aureus 07/01/17 13:30 Blood Gram Stain - Final Most Recent Lab Values WBC 9.3 10^3/ul (4.5-11.0) 07/10/17 06:15 RBC 3.24 10^6/uL (3.5-6.1) L 07/10/17 06:15 Hgb 8.2 g/dL (14.0-18.0) L 07/10/17 06:15 Hct 25.7 % (42.0-52.0) L 07/10/17 06:15 MCV 79.3 fl (80.0-105.0) L 07/10/17 06:15 MCH 25.3 pg (25.0-35.0) 07/10/17 06:15 MCHC 31.9 g/dl (31.0-37.0) 07/10/17 06:15 RDW 16.1 % (11.5-14.5) H 07/10/17 06:15 Plt Count 485 10^3/uL (120.0-450.0) H 07/10/17 06:15 MPV 7.8 fl (7.0-11.0) 07/10/17 06:15 Gran % 71.1 % (50.0-68.0) H 07/10/17 06:15 Lymph % (Auto) 18.7 % (22.0-35.0) L 07/10/17 06:15 Rooks % (Auto) 8.8 % (1.0-6.0) H 07/10/17 06:15 Eos % (Auto) 1.3 % (1.5-5.0) L 07/10/17 06:15 Baso % (Auto) 0.1 % (0.0-3.0) 07/10/17 06:15 Gran # 6.62 (1.4-6.5) H 07/10/17 06:15 Lymph # 1.7 (1.2-3.4) 07/10/17 06:15 Rooks # 0.8 (0.1-0.6) H 07/10/17 06:15 Eos # 0.1 (0.0-0.7) 07/10/17 06:15 Baso # 0.01 K/mm3 (0.0-2.0) 07/10/17 06:15 Neutrophils % (Manual) 86 % (50.0-70.0) H 07/01/17 13:08 Lymphocytes % (Manual) 8 % (22.0-35.0) L 07/01/17 13:08 Monocytes % (Manual) 6 % (1.0-6.0) 07/01/17 13:08 Platelet Evaluation Normal (NORMAL) 07/01/17 13:08 Hypochromasia 1+ 07/01/17 13:08 Anisocytosis (manual) 1+ 07/01/17 13:08 Microcytosis (manual) 1+ 07/01/17 13:08 Ovalocytes Slight 07/01/17 13:08 ESR 130 mm/hr (0.00-15.0) H 07/01/17 13:08 PT 13.0 Seconds (9.9-11.8) H 07/10/17 06:15 INR 1.20 (0.93-1.08) H 07/10/17 06:15 APTT 42.9 Seconds (23.7-30.8) H 07/01/17 13:08 pO2 30 mm/Hg (30-55) 07/01/17 13:08 VBG pH 7.36 (7.32-7.43) 07/01/17 13:08 VBG pCO2 42.0 (40-60) 07/01/17 13:08 VBG HCO3 23.7 mmol/l (21-28) 07/01/17 13:08 VBG Total CO2 25.0 mmol.L (22-28) 07/01/17 13:08 VBG O2 Sat (Calc) 63.9 % (40-65) 07/01/17 13:08 VBG Base Excess -1.8 mmol/L (0.0-2.0) L 07/01/17 13:08 VBG Potassium 4.2 mmol/L (3.6-5.2) 07/01/17 13:08 Sodium 125.0 mmol/L (132-148) L 07/01/17 13:08 Chloride 92.0 mmol/L (98-107) L 07/01/17 13:08 Glucose 70 mg/dl (75-110) L 07/01/17 13:08 Lactate 1.3 mmol/L (0.7-2.1) 07/01/17 13:08 FiO2 21.0 % 07/01/17 13:08 Sodium 134 mmol/L (132-148) 07/10/17 06:15 Potassium 4.0 mmol/L (3.6-5.0) 07/10/17 06:15 Chloride 100 mmol/L (98-107) 07/10/17 06:15 Carbon Dioxide 29 mmol/L (21-33) 07/10/17 06:15 Anion Gap 9 (10-20) L 07/10/17 06:15 BUN 11 mg/dL (7-21) 07/10/17 06:15 Creatinine 0.5 mg/dL (0.5-1.4) 07/10/17 06:15 Est GFR ( Amer) > 60 07/10/17 06:15 Est GFR (Non-Af Amer) > 60 07/10/17 06:15 POC Glucose (mg/dL) 233 mg/dL (65-110) H 07/10/17 16:16 Random Glucose 62 mg/dL (70-110) L 07/10/17 06:15 Calcium 8.5 mg/dL (8.4-10.5) 07/10/17 06:15 Phosphorus 4.0 mg/dL (2.5-4.5) 07/01/17 13:08 Magnesium 2.0 mg/dL (1.7-2.2) 07/01/17 13:08 Iron 12 ug/dL (45-180) L 07/06/17 11:00 TIBC 186 ug/dL (261-462) L 07/06/17 11:00 % Saturation 6 % (20-55) L 07/06/17 11:00 Transferrin 122.03 mg/dL (206-381) L 07/06/17 11:00 Ferritin 237.0 ng/mL 07/06/17 10:25 Total Bilirubin 0.3 mg/dL (0.2-1.3) 07/10/17 06:15 AST 36 U/L (15-59) 07/10/17 06:15 ALT 29 U/L (7-56) 07/10/17 06:15 Alkaline Phosphatase 170 U/L (38-133) H 07/10/17 06:15 Lactate Dehydrogenase 471 U/L (333-699) 07/01/17 13:08 Total Creatine Kinase 60 U/L (35-230) 07/04/17 06:30 Troponin I < 0.01 ng/mL 07/01/17 13:08 Total Protein 7.3 g/dL (5.8-8.3) 07/10/17 06:15 Albumin 2.6 g/dL (3.0-4.8) L 07/10/17 06:15 Globulin 4.7 gm/dL 07/10/17 06:15 Albumin/Globulin Ratio 0.6 (1.1-1.8) L 07/10/17 06:15 Vitamin B12 994 pg/mL (239-931) H 07/06/17 10:25 Folate 15.6 ng/mL 07/06/17 10:25 Procalcitonin 0.12 NG/ML (0.19-0.49) L 07/07/17 12:30 Venous Blood Potassium 4.2 mmol/L (3.6-5.2) 07/01/17 13:08 Urine Color Yellow (YELLOW) 07/07/17 13:45 Urine Appearance Clear (CLEAR) 07/07/17 13:45 Urine pH 6.5 (4.7-8.0) 07/07/17 13:45 Ur Specific Erick 1.015 (1.005-1.035) 07/07/17 13:45 Urine Protein Negative mg/dL (<30 mg/dL) 07/07/17 13:45 Urine Glucose (UA) Negative mg/dL (NEGATIVE) 07/07/17 13:45 Urine Ketones Negative mg/dL (NEGATIVE) 07/07/17 13:45 Urine Blood Trace-lysed (NEGATIVE) H 07/07/17 13:45 Urine Nitrate Negative (NEGATIVE) 07/07/17 13:45 Urine Bilirubin Negative (NEGATIVE) 07/07/17 13:45 Urine Urobilinogen 1.0 E.U./dL (<1 E.U./dL) H 07/07/17 13:45 Ur Leukocyte Esterase Negative Brandi/uL (NEGATIVE) 07/07/17 13:45 Urine RBC 0 - 2 /hpf (0-2) 07/07/17 13:45 Urine WBC 0 - 2 /hpf (0-6) 07/07/17 13:45 Ur Epithelial Cells 0 - 2 /hpf (0-5) 07/07/17 13:45 Urine Bacteria Few (NEG) 07/07/17 13:45 Fluid Type Synovial fluid 07/10/17 15:30 Synovial WBC 73182.0 /uL (0.0-150.0) H 07/10/17 15:30 Synovial RBC 1584.0 /uL (0.0-0.0) H 07/10/17 15:30 Synovial Neutrophils 95.0 % (0-0) H 07/10/17 15:30 Synovial Lymphocytes 1.0 % (0-0) H 07/10/17 15:30 Synov Monos/Macrophage 4 % (0-0) H 07/10/17 15:30 RPR Nonreactive (NONREACTIVE) 07/04/17 07:00 Hepatitis A IgM Ab Negative (NEGATIVE) 07/04/17 07:00 Hep Bs Antigen Negative (NEGATIVE) 07/04/17 07:00 Hep B Core IgM Ab Negative (NEGATIVE) 07/04/17 07:00 Hepatitis C Antibody Negative (NEGATIVE) 07/04/17 07:00 HIV 1&2 Ag/Ab, 4th Gen Nonreactive (Nonreactive) 07/04/17 07:00 Blood Type O POSITIVE 07/02/17 09:36 Antibody Screen Negative 07/02/17 09:36 Crossmatch See Detail 07/02/17 09:36 BBK History Checked Patient has bt 07/02/17 09:36 - Constitutional Appears: Well, No Acute Distress - Head Exam Head Exam: ATRAUMATIC, NORMAL INSPECTION, NORMOCEPHALIC - Eye Exam Eye Exam: Normal appearance - ENT Exam ENT Exam: Normal External Ear Exam - Neck Exam Neck Exam: Normal Inspection - Respiratory Exam Respiratory Exam: NORMAL BREATHING PATTERN - Cardiovascular Exam Cardiovascular Exam: absent: JVD - GI/Abdominal Exam GI & Abdominal Exam: absent: Distended - Rectal Exam Rectal Exam: Deferred - Exam Additional comments: Deferred. - Extremities Exam Additional comments: Right knee dressing present. Unable to fully flex. Tenderness +. Also right heel is covered with dressing. - Back Exam Back Exam: NORMAL INSPECTION - Neurological Exam Neurological Exam: Alert, Awake, Oriented x3 - Psychiatric Exam Psychiatric exam: Normal Affect, Normal Mood - Skin Skin Exam: Normal Color Assessment and Plan - Assessment and Plan (Free Text) Assessment: Right knee pain. S/P right knee aspiration today. S/P right foot 1st metatarsal abscess drainage. IDDM. HTN. HLD. Plan: Oxycodone IR 30 mg PO stat. Continue present management.
--- NOTE | 2017-07-10 21:23 | PN ---
DATE: 07/10/2017 SUBJECTIVE: The patient is seen in bed, in no acute distress this morning. PHYSICAL EXAMINATION VITAL SIGNS: Temperature is 98, blood pressure is 120/60, respiratory rate of 16. HEENT: Unremarkable. NECK: Supple. LUNGS: Decreased breath sounds. HEART: Normal S1 and S2. ABDOMEN: Soft. LABORATORY DATA: Reveals a white count of 9.3, hemoglobin of 8, platelets of 485 and the patient's sed rate is at 130. Chemistries reveal the patient's BUN of 11, creatinine of 0.5 and C-reactive protein. CK is 60. Blood cultures are negative, repeat blood cultures are negative. Review of orders confirms the daptomycin to be present. ASSESSMENT AND PLAN: A 57-year-old with diabetes mellitus, diabetic neuropathy, hyperlipidemia, hypertension with MRSA bacteremia, right foot cellulitis and severe sepsis and osteomyelitis, gangrene, status post operative debridement, procedure day #9 for MRSA bacteremia and MRSA of the foot, currently on day #8 of daptomycin and with the pathology showing osteomyelitis, only 4 to 6 weeks of osteomyelitis. The patient is refusing vancomycin due to hearing loss and note is reviewed. May use Teflaro, although Teflaro is not approved for osteomyelitis, it is approved for bacteremia, but not endocarditis, only approved for bacteremia secondary to soft tissue infection and no other options other than daptomycin and possibility of Teflaro which should be off label use. The patient will be explained the current recommendations and label and off label indications of the medications recommended and full explanation will be given to the patient. We will discontinue the meropenem. Volodymyr Heath MD
[2017-07-11 00:47] VITALS: RESP 20
[2017-07-11] MEDS: oxyCODONE 30 mg Immediate Release Tab PO PRN ×6 (00:52→21:37)
[2017-07-11] MEDS: Albuterol-Ipratrop 3 mg / 0.5 (3 ml) UD IH SCH ×5 (04:00→23:39)
--- NOTE | 2017-07-11 04:07 | CON ---
REASON FOR CONSULTATION: Right knee pain in joint. HISTORY OF PRESENT ILLNESS: A 57-year-old male with a history of right foot osteomyelitis, hypertension, diabetes, MRSA, was admitted to the hospital to rule out endocarditis. During the hospital admission, he underwent multiple debridements of his foot. The patient noticed increased swelling of the knee. I was consulted to evaluate the knee. The patient was complaining of increased difficulty examining the knee, severe pain, inability to flex it or extend it. He does have a history of severe osteoarthritis in the knee. PHYSICAL EXAMINATION EXTREMITIES: Right knee: There is diffuse swelling of the knee, at about 45 degrees of flexion. The patient is unable to straighten it due to severe pain or bend it due to severe pain. Neurovascularly intact. The knee is warm to touch. X-rays were seen and reviewed of the knee, show extensive osteoporotic changes with suprapatellar issues. ASSESSMENT: Right knee swelling, rule out septic knee. PLAN: Discussed about management of the patient at this time, recommended knee drainage, aspiration. Risks and benefits were explained. PROCEDURE: With proper consent under sterile condition, an 18-gauge needle was introduced into the right knee joint and about 60 mL of yellowish cloudy drainage was aspirated. The aspirate was sent for cultures and white count. I spoke to the patient regarding the aspirate that this most likely is reflecting an infection. We will recommend surgery or right knee arthroscopic washout. Case was discussed with the primary team. We will schedule for an urgent right knee surgery. Derrick Christensen MD
[2017-07-11] MEDS: Pantoprazole 40 mg EC Tab PO SCH (05:36)
[2017-07-11 07:03] LABS: INR 1.19 (0.93-1.08); PARTIAL THROMBOPLASTIN TIME 37.6 Seconds (23.7-30.8)
[2017-07-11 07:35] LABS: BASO # 0.02 K/mm3 (0.0-2.0); BASO % 0.2 % (0.0-3.0); EOS # 0.1 (0.0-0.7); EOS % 0.5 % (1.5-5.0); GRAN # 8.91 (1.4-6.5); GRAN % 81.3 % (50.0-68.0); HEMATOCRIT 26.4 % (42.0-52.0); LYMPH # 1.1 (1.2-3.4); LYMPH % 9.9 % (22.0-35.0); MEAN CELL VOLUME 79.3 fl (80.0-105.0); MEAN CORPUSCULAR HEMOGLOBIN 25.2 pg (25.0-35.0); MEAN CORPUSCULAR HGB CONC 31.8 g/dl (31.0-37.0); MONO # 0.9 (0.1-0.6); MONO % 8.1 % (1.0-6.0); RED CELL DISTRIBUTION WIDTH 16.2 % (11.5-14.5)
[2017-07-11 07:38] LABS: ALB/GLOB RATIO 0.6 (1.1-1.8); ALKALINE PHOSPHATASE 168 U/L (38-133); ALT/SGPT 26 U/L (7-56); AST/SGOT 35 U/L (15-59); BILIRUBIN,TOTAL 0.2 mg/dL (0.2-1.3); BLOOD UREA NITROGEN 9 mg/dL (7-21); CALCIUM 8.3 mg/dL (8.4-10.5); CARBON DIOXIDE 30 mmol/L (21-33); CHLORIDE 99 mmol/L (98-107); GFR AFRICAN-AMERICAN > 60; GLUCOSE,RANDOM 160 mg/dL (70-110); SODIUM 135 mmol/L (132-148); TOTAL PROTEIN 7.4 g/dL (5.8-8.3)
[2017-07-11] MEDS: diltiaZEM 240 mg/24 Hours CD Cap PO SCH (08:59)
[2017-07-11] MEDS: Insulin Lispro 1 UNITS/0.01 ML SC SCH (08:59)
[2017-07-11] MEDS: Insulin Reg-HIGH-Coverage SC SCH ×4 (09:00→21:52)
[2017-07-11] MEDS: Insulin Detemir 100 units/ml Vial (Levemir) SC SCH ×2 (09:00→19:03)
--- NOTE | 2017-07-11 12:00 | CP.PCM.PN ---
Subjective - Date & Time of Evaluation Date of Evaluation: 07/11/17 Time of Evaluation: 10:00 - Subjective Subjective: Comfortable on a chair, less pain in the right leg/foot/knee, no fevers overnight, no diarrhea. Objective - Vital Signs/Intake and Output Vital Signs (last 24 hours): Temp Pulse Resp BP Pulse Ox 98.7 F 76 20 124/56 L 98 07/11/17 06:00 07/11/17 08:59 07/11/17 06:00 07/11/17 08:59 07/11/17 06:00 Intake and Output: 07/11/17 07/11/17 06:59 18:59 Intake Total 1000 Output Total 1500 Balance -500 - Medications Medications: Current Medications Acetaminophen (Tylenol 325mg Tab) 650 mg PO Q4H PRN PRN Reason: Fever >100.4 F Last Admin: 07/09/17 17:28 Dose: 650 mg Albuterol/Ipratropium (Duoneb 3 Mg/0.5 Mg (3 Ml) Ud) 3 ml IH [id number] [facility] Last Admin: 07/11/17 07:41 Dose: Not Given Albuterol/Ipratropium (Duoneb 3 Mg/0.5 Mg (3 Ml) Ud) 3 ml IH Q2H PRN PRN Reason: Shortness of Breath Alprazolam (Xanax) 1 mg PO BID PRN; Protocol PRN Reason: Anxiety Last Admin: 07/09/17 22:27 Dose: 1 mg Apixaban (Eliquis) 5 mg PO BID [facility] PRN Reason: Protocol Last Admin: 07/08/17 17:39 Dose: 5 mg Atorvastatin Calcium (Lipitor) 20 mg PO DIN [facility] Last Admin: 07/10/17 18:34 Dose: 20 mg Diltiazem HCl (Cardizem Cd) 240 mg PO DAILY [facility] Last Admin: 07/11/17 08:59 Dose: 240 mg Docusate Sodium (Colace) 100 mg PO BID [facility] Last Admin: 07/11/17 08:59 Dose: 100 mg Furosemide (Lasix) 20 mg PO DAILY [facility] Last Admin: 07/11/17 08:59 Dose: 20 mg Daptomycin 540 mg/ Sodium (Chloride) 100 mls @ 200 mls/hr IV Q24H [facility] Stop: 07/13/17 22:16 Last Admin: 07/10/17 21:49 Dose: 200 mls/hr Insulin Detemir (Levemir) 40 unit SC BID [facility] Last Admin: 07/11/17 09:00 Dose: 40 unit Insulin Human Lispro (Humalog) 25 units SC BRK [facility] Last Admin: 07/11/17 08:59 Dose: Not Given Insulin Human Regular (Humulin R High) 0 units SC ACHS [facility] PRN Reason: Protocol Last Admin: 07/11/17 09:00 Dose: 4 units Oxycodone HCl (Oxycodone Immediate Release Tab) 30 mg PO Q4H PRN PRN Reason: Pain, severe (8-10) Last Admin: 07/11/17 08:59 Dose: 30 mg Pantoprazole Sodium (Protonix Ec Tab) 40 mg PO 0600 [facility] Last Admin: 07/11/17 05:36 Dose: 40 mg - Labs Labs: 07/11/17 06:00 07/11/17 06:00 PT 12.8 Seconds (9.9-11.8) H 07/11/17 06:00 INR 1.19 (0.93-1.08) H 07/11/17 06:00 APTT 37.6 Seconds (23.7-30.8) H 07/11/17 06:00 - Constitutional Appears: Non-toxic, No Acute Distress - Head Exam Head Exam: NORMAL INSPECTION - Respiratory Exam Respiratory Exam: Decreased Breath Sounds - Cardiovascular Exam Cardiovascular Exam: +S1, +S2 - GI/Abdominal Exam GI & Abdominal Exam: Soft. absent: Tenderness - Extremities Exam Additional comments: right foot with dressings in place Assessment and Plan - Assessment and Plan (Free Text) Plan: Assessment Sepsis due to gas gangrene with osteomyelitis of the right foot associated with a chronic plantar ulcer S/P debridement POD #10, with associated MRSA bacteremia (and MRSA also found in the foot cx); patient with thickened aortic valves, ANJU was not specific for endocarditis right knee swelling HTN DM GERD peripheral neuropathy history of cardiac ablation history of left hallux partial amputation peripheral vascular disease Plan continue Daptomycin (patient is refusing Vancomycin even after explanation that he can only go deaf if the levels are not monitored properly and exceeds level of 20) - will recommend at least 4-6 weeks of antibiotics with weekly ESR, CRP, CBC, CMP, CPK levels repeat blood cx are negative reviewed ANJU results S/P right knee arthrocentesis - cx from the synovial fluid are negative x 1 day will continue to monitor clinically
[2017-07-11] MEDS ORDERED: Bupivacaine 0.5% Inj(30mL) ONE (12:48)
[2017-07-11] MEDS ORDERED: Propofol 10 mg/ml Inj (20 ML) ONE (13:29)
[2017-07-11] MEDS ORDERED: Etomidate 20 mg/10ml Inj IV ONE (13:29)
--- NOTE | 2017-07-11 13:43 | CP.PCM.PN ---
Subjective - Date & Time of Evaluation Date of Evaluation: 07/11/17 Time of Evaluation: 13:38 - Subjective Subjective: 57 year old male patient seen at bedside 6 days s/p right foot excisional debridement of nonviable tissue (DOS: 07/05/17). Patient seen resting comfortably , AAOx3 and NAD. Patient denies any acute events overnight. Patient reports continued pain to right foot rated 3/10 however states pain feels diminished secondary to excruciating right knee pain. Patient states he is unable to move his right foot, and when he does a pain shoots up into his knee. Patient states he is supposed to go to the OR today for a right knee washout. Patient denies N/ V/F/D/C/SOB/calf pain. No other pedal complaints at this time. Objective - Vital Signs/Intake and Output Vital Signs (last 24 hours): Temp Pulse Resp BP Pulse Ox 98.7 F 76 20 124/56 L 98 07/11/17 06:00 07/11/17 08:59 07/11/17 06:00 07/11/17 08:59 07/11/17 06:00 Intake and Output: 07/11/17 07/11/17 06:59 18:59 Intake Total 1000 Output Total 1500 Balance -500 - Medications Medications: Current Medications Acetaminophen (Tylenol 325mg Tab) 650 mg PO Q4H PRN PRN Reason: Fever >100.4 F Last Admin: 07/09/17 17:28 Dose: 650 mg Albuterol/Ipratropium (Duoneb 3 Mg/0.5 Mg (3 Ml) Ud) 3 ml IH [id number] [facility] Last Admin: 07/11/17 11:04 Dose: Not Given Albuterol/Ipratropium (Duoneb 3 Mg/0.5 Mg (3 Ml) Ud) 3 ml [facility] Q2H PRN PRN Reason: Shortness of Breath Alprazolam (Xanax) 1 mg PO BID PRN; Protocol PRN Reason: Anxiety Last Admin: 07/09/17 22:27 Dose: 1 mg Apixaban (Eliquis) 5 mg PO BID [facility] PRN Reason: Protocol Last Admin: 07/08/17 17:39 Dose: 5 mg Atorvastatin Calcium (Lipitor) 20 mg PO DIN [facility] Last Admin: 08/29/17 18:34 Dose: 20 mg Diltiazem HCl (Cardizem Cd) 240 mg PO DAILY [facility] Last Admin: 07/11/17 08:59 Dose: 240 mg Docusate Sodium (Colace) 100 mg PO BID [facility] Last Admin: 07/11/17 08:59 Dose: 100 mg Furosemide (Lasix) 20 mg PO DAILY [facility] Last Admin: 07/11/17 08:59 Dose: 20 mg Daptomycin 540 mg/ Sodium (Chloride) 100 mls @ 200 mls/hr IV Q24H [facility] Stop: 07/13/17 22:16 Last Admin: 07/10/17 21:49 Dose: 200 mls/hr Insulin Detemir (Levemir) 40 unit SC BID [facility] Last Admin: 07/11/17 09:00 Dose: 40 unit Insulin Human Lispro (Humalog) 25 units SC BRK [facility] Last Admin: 07/11/17 08:59 Dose: Not Given Insulin Human Regular (Humulin R High) 0 units SC ACHS [facility] PRN Reason: Protocol Last Admin: 07/11/17 09:00 Dose: 4 units Oxycodone HCl (Oxycodone Immediate Release Tab) 30 mg PO Q4H PRN PRN Reason: Pain, severe (8-10) Last Admin: 07/11/17 12:47 Dose: 30 mg Pantoprazole Sodium (Protonix Ec Tab) 40 mg PO 0600 [facility] Last Admin: 07/11/17 05:36 Dose: 40 mg - Labs Labs: 07/11/17 06:00 07/11/17 06:00 PT 12.8 Seconds (9.9-11.8) H 07/11/17 06:00 INR 1.19 (0.93-1.08) H 07/11/17 06:00 APTT 37.6 Seconds (23.7-30.8) H 07/11/17 06:00 - Constitutional Appears: Well, Non-toxic, No Acute Distress - Extremities Exam Additional comments: Right lower extremity focused exam: Dressing to RLE appears clean/dry/intact with no strikethrough noted Derm: Open wound noted to dorsum of right foot measuring 10cmx 3cm x 1.5cm with mix of fibrotic and granular base. No purulent drainage noted. Mild amount of sero-sanguinous drainage is noted. No mal-odor noted. Probes to bone. Mild erythema noted. Midpoint of medial wound border is fluctuant; no fluctuance noted to remaining wound edges. Another open wound noted to plantar aspect of right foot measuring 10cm x 3.5cm x 0.3cm with 50% granular base 50% fibrotic. Mild serosanguinous drainage. No purulent discharge. No mal-odor, No PTB. Slight maceration noted to wound edges noted. Vasc:DP and PT pulses non-palpable. TG WNL Neuro: Gross sensation diminished Ortho: Pain on palpation to right foot and leg. Pain upon active and passive ROM. - Neurological Exam Neurological Exam: Alert, Awake, Oriented x3 - Psychiatric Exam Psychiatric exam: Normal Affect, Normal Mood Assessment and Plan - Assessment and Plan (Free Text) Assessment: 57 year old male patient 6 days s/p right foot excisional debridement of non- viable tissue Plan: Patient seen and evaluated at bedside Discussed with attending, Dr. Lane Chart, vitals, labs reviewed = afebrile, WBC WNL @ 11.0 Right foot cleansed with normal sterile saline, packed with Curex , 4x4, ABD and Kerlix to dorsum & plantar aspect Continue IV Abx as per ID Podiatry will follow patient while in house
[2017-07-11] MEDS ORDERED: Sevoflurane - Inhalation Anesthetic Liq (250 ml) ONE (14:05)
--- NOTE | 2017-07-11 15:14 | PN ---
DAILY PROGRESS NOTE DATE: SUBJECTIVE: The patient was seen and examined at bedside on the general medical rolle. No acute events overnight. He remains afebrile and hemodynamically stable. The patient is status post evaluation by the orthopedic surgery team given his ongoing right knee pain. He underwent a thoracentesis with fluid sent for cytology and culture and recommendations were made for surgical washout. This morning, he states he feels okay and states his knee pain is somewhat better, however, persist and otherwise offers no complaints. OBJECTIVE: VITAL SIGNS: Temperature 98.7, pulse 76, blood pressure 124/56, respiratory rate 20, and oxygen saturation 98% on room air. GENERAL: Frail man appearing older than his stated age, lying in bed, and in no apparent distress. HEENT: PERRL. EOMI. No scleral icterus. Mild conjunctival pallor is noted. NECK: No JVD. LUNGS: Clear to auscultation. CARDIOVASCULAR: Regular rate and rhythm. Normal S1 and S2. ABDOMEN: Normoactive bowel sounds, soft, nontender, and nondistended. EXTREMITIES: Right foot with surgical dressing in place with scant oozing, right knee with mild erythema and edema. NEUROLOGIC: Awake, alert, and oriented x3. No focal motor deficits. LABORATORY DATA: WBC 11 with 81% neutrophils, hemoglobin 8.4, hematocrit 26, and platelets 461. Chemistry reviewed and unremarkable. Blood cultures from 07/01/2017 with MRSA. Blood cultures from 07/03/2017 and 07/07/2017 with no growth to date. ASSESSMENT: The patient is a 57-year-old man with insulin-dependent diabetes mellitus with diabetic neuropathy, hypertension, hyperlipidemia and history of right lower extremity osteomyelitis with history of methicillin-resistant Staphylococcus aureus bacteremia who presents to [facility] with several-day history of right foot pain, edema, and erythema and who was admitted for severe sepsis secondary to right foot osteomyelitis with gas gangrene. It was now being schedule for right knee arthroscopic washout for likely septic joint. PLAN: 1. Osteomyelitis of the right foot, input from Dr. Lane noted and appreciated. Continue with local wound care and postoperative care as per Dr. Lane and the podiatric team. Input from Dr. Heath of infectious disease noted and greatly appreciated and Dr. Heath's note is reviewed regarding the off label use of Teflaro at the facility, transfer to an LTAC given the patient's adamant resistance to use of vancomycin. The risks and benefits have been explained to the patient and he is agreeable with assuming these risks. 2. Right knee septic joint, input from Dr. Christensen and the orthopedic surgery team noted and greatly appreciated. The patient is status post right knee arthrocentesis and per review of the orthopedic surgery, no arrangements will be made for right knee surgery with washout. 3. Severe sepsis secondary to osteomyelitis of the right foot and now likely right knee infection. Continue with care as per numbers 1 and 2. 4. Acute kidney injury, resolved. 5. Hyponatremia, resolved. 6. Hypertension, blood pressure controlled. Continue with diltiazem 240 mg p.o. daily. 7. Hyperlipidemia. Continue with Lipitor 20 mg p.o. daily. 8. Insulin-dependent diabetes mellitus with diabetic neuropathy. Continue with Humalog 70/30, 25 units subcutaneously q.a.m. and Lantus 40 units subcutaneously b.i.d. 9. Anxiety disorder. Continue with Xanax 1 mg p.o. b.i.d. 10. Paroxysmal atrial fibrillation, status post ablation. The patient remains in normal sinus rhythm. Continue with diltiazem 240 mg p.o. daily. Eliquis remains on hold. Given the patient is being scheduled for orthopedic surgery. 11. Sciatica. Continue oxycodone 30 mg p.o. q.4 hours p.r.n. pain. 12. Prophylaxis. Continue with Protonix 40 mg p.o. daily. CODE STATUS: FULL CODE. Ty Monterroso MD MTDShyam
[2017-07-11] MEDS ORDERED: HYDROmorphone 0.5 mg/0.5 ml ISec IVP PRN (15:15)
[2017-07-11] MEDS ORDERED: Lactated Ringer's 1,000 ML IV SCH (15:15)
[2017-07-11] MEDS ORDERED: HYDROmorphone 0.5 mg/0.5 ml ISec IVP ONE ×4 (15:19→16:04)
[2017-07-11] MEDS ORDERED: HYDROmorphone 0.5 mg/0.5 ml ISec ONE ×4 (15:19→16:00)
[2017-07-11] MEDS ORDERED: HYDROmorphone 1 mg/ml ISec IVP STA (16:12)
[2017-07-11] MEDS ORDERED: HYDROmorphone 1 mg/ml ISec ONE ×2 (16:15→16:34)
[2017-07-11] MEDS ORDERED: HYDROmorphone 1 mg/ml ISec IVP ONE ×2 (16:17→16:35)
--- NOTE | 2017-07-11 16:18 | PN ---
DATE: 07/11/2017 REASON FOR CONSULTATION FOLLOWUP: Staphylococcus bacteremia, rule out endocarditis; history of paroxysmal atrial fibrillation status post radiofrequency ablation, ANJU negative for endocarditis. SUBJECTIVE: Patient denies any chest pain, shortness of breath, any palpitation. Complaint of right knee pain, status post knee tap. OBJECTIVE: GENERAL: Lying flat on the bed, complaint of right knee pain. VITAL SIGNS: Temperature is afebrile, heart rate 76, blood pressure 124/56. HEENT: PERRLA. Extraocular muscles intact. NECK: Supple. No carotid bruit. No thyromegaly. CHEST: Clear to auscultation. HEART: S1 and S2, regular. ABDOMEN: Soft. EXTREMITIES: Clubbing and cyanosis negative. LABORATORY DATA: Blood workup as follows; WBC 11, hemoglobin 8.4, hematocrit 26.4, platelet count 461. Chemistry showed sodium 135, potassium 4, chloride 99, bicarbonate 30, anion gap of 10, BUN of 9, creatinine 0.4. IMPRESSION: This is a 57-year-old male with past medical history significant for paroxysmal atrial fibrillation status post radiofrequency ablation admitted with methicillin-resistant Staphylococcus aureus bacteremia. Blood culture was positive. Osteomyelitis of the right foot toe, diabetes, hypertension, hyperlipidemia, diabetic nephropathy. The patient underwent transesophageal echocardiogram, which was negative for endocarditis. Denies any chest pain. Complaint of right knee pain. Orthopedic consult by Dr. Flor Perez was called yesterday. Possible drainage tomorrow. RECOMMENDATIONS: Suggest to hold Eliquis 24 hours before the procedure to prevent excessive bleeding. The patient is cleared from cardiac point of view to go for knee surgery. No absolute contraindication or evidence of arrhythmia. Since the patient is in normal sinus, no evidence of congestive heart failure or ischemia. We will follow with you. Resume back Eliquis 24 hours after the procedure. Risk of bleeding educated. We will follow with you. Thank you Dr. Monterroso for opportunity in taking care of Ricardo Rivas. Shilo Simental MD
[2017-07-11] MEDS ORDERED: HYDROmorphone 0.5 mg/0.5 ml ISec IM STA (16:31)
[2017-07-11] MEDS ORDERED: HYDROmorphone 1 mg/ml ISec IM STA (16:40)
[2017-07-11 16:58] VITALS: O2SAT 98
[2017-07-12] MEDS: oxyCODONE 30 mg Immediate Release Tab PO PRN ×3 (01:51→10:17)
--- NOTE | 2017-07-12 02:38 | OP ---
PROCEDURE DATE: 07/11/2017 PREOPERATIVE DIAGNOSES: 1. Right septic knee. 2. Right tricompartmental arthritis of the knee. POSTOPERATIVE DIAGNOSES: 1. Right septic knee. 2. Right knee degenerative medial and lateral meniscal tear. 3. 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 4. Right knee extensive synovitis of the tricompartmental. PROCEDURE: 1. Right knee arthroscopic major synovectomy 66346. 2. Right knee medial and lateral meniscectomy 89192. 3. Right knee chondroplasty 03977. 4. Right knee septic joint washout 23258. SURGEON: Derrick Christensen M.D. SENIOR QUALITY CONTROL INSPECTOR: None. TYPE OF ANESTHESIA: General. ESTIMATED BLOOD LOSS: None. SPECIMEN: None. DRAINS: 10 mL MARLYS drain. COMPLICATIONS: None. INDICATION: This is a 57-year-old male with history of diabetes who presented to the emergency room complaining of increased right foot pain and knee pain. The patient was admitted to the hospital due to a concern for septic knee. Initial aspiration of the knee joint confirmed septic knee with high white count. The patient was urgently taken to the operating room for the above procedure. Risks and benefits of the procedure were explained. Risks included but not limited to bleeding, infection, tendon, nerve and vessel injury, disability, chronic pain, potentially need for additional surgery in the future. Informed consent was obtained. DESCRIPTION OF PROCEDURE: The patient was brought to the operating room and placed supine on the operating room table. After prophylactic antibiotics were given and general anesthesia, a right lower extremity tourniquet was placed on the thigh. The right lower extremity was then prepped and draped in the standard surgical fashion. A time-out was completed. Esmarch was used to exsanguinate the leg and tourniquet was inflated to 300 mmHg. A tendon anterior, lateral and medial portals was made with a 11-blade. Arthroscopic examination of the knee revealed: 1. Purulent drainage of the knee. 2. Extensive degenerative changes of the medial and lateral compartment and patellofemoral compartment. 3. Degenerative meniscal tear of the medial and lateral compartment. 4. Grade 4 chondromalacia of the patellofemoral and medial compartment. 5. Extensive synovitis of the tricompartmental joint. The anterior cruciate ligament and posterior cruciate ligaments were intact. Partial medial meniscectomy was performed with the combination of the hand instruments and a 4.0 motorized shaver. The meniscus was debrided to a small stable border with an excursion of less than 3 mm. Partial lateral meniscectomy was performed with a combination of the hand instruments and a 4.0 mm motorized shaver. The meniscus was debrided to a small stable border with an excursion of less than 5 mm. The motorized shaver was used to perform synovectomy of the medial, lateral and patellofemoral compartments and hypertrophic synovium was resected with minimal bleeding. No synovial incarceration was noted at the synovectomy when the knee was pulled through a full passive range of motion. The motorized phill were then used to mechanically debride the loose fibrillated and fragmented chondral edges of the medial lateral compartment and patellofemoral compartment to a stable border. Extreme care was taken not to disturb the adjacent chondral surface. The edges of the injured chondral area were probed to make sure stability after the shaver was withdrawn from the knee. The medial and lateral gutters were checked for loose bodies. At this point, the knee was copiously irrigated utilizing the Bacitracin filled solution, a total of 4 liters was used to wash out the knee. Arthroscopic washout was performed with free flowing outflow from the cannula with an arthroscope removed. A 10 mm MARLYS drain was inserted into the patellofemoral joint under direct visualization. Portal closure was then accomplishing using 4-0 Monocryl suture. A sterile dressing was applied consisting of 4 x 4 sterile gauze, ABDs, 6 inch Redd wrap. The patient tolerated the procedure well and was returned to the recovery room. The attending surgeon was present throughout the entirety of the case. The patient will start physical therapy and all the range of motion exercises. He will continue to keep the drain for 48 hours. Derrick Christensen MD
[2017-07-12] MEDS: Albuterol-Ipratrop 3 mg / 0.5 (3 ml) UD IH SCH ×3 (04:46→11:10)
[2017-07-12] MEDS: Pantoprazole 40 mg EC Tab PO SCH (05:35)
[2017-07-12 06:23] LABS: HEMATOCRIT 25.2 % (42.0-52.0); MEAN CELL VOLUME 79.5 fl (80.0-105.0); MEAN CORPUSCULAR HEMOGLOBIN 25.9 pg (25.0-35.0); MEAN CORPUSCULAR HGB CONC 32.5 g/dl (31.0-37.0); MEAN PLATELET VOLUME 7.5 fl (7.0-11.0); RED CELL DISTRIBUTION WIDTH 16.2 % (11.5-14.5)
[2017-07-12 06:41] LABS: ALB/GLOB RATIO 0.5 (1.1-1.8); ALKALINE PHOSPHATASE 149 U/L (38-133); ALT/SGPT 19 U/L (7-56); AST/SGOT 39 U/L (15-59); BILIRUBIN,TOTAL 0.4 mg/dL (0.2-1.3); BLOOD UREA NITROGEN 8 mg/dL (7-21); CALCIUM 8.3 mg/dL (8.4-10.5); CARBON DIOXIDE 29 mmol/L (21-33); CHLORIDE 100 mmol/L (95-110); GFR AFRICAN-AMERICAN > 60; GLUCOSE,RANDOM 174 mg/dL (70-110); POTASSIUM 4.1 mmol/L (3.6-5.0); SODIUM 135 mmol/L (132-148); TOTAL PROTEIN 7.5 g/dL (5.8-8.3)
[2017-07-12 07:54] VITALS: PULSE 73; TEMP 98
[2017-07-12] MEDS ORDERED: HYDROmorphone 0.5 mg/0.5 ml ISec IVP STA (08:10)
[2017-07-12] MEDS: diltiaZEM 240 mg/24 Hours CD Cap PO SCH (09:36)
[2017-07-12] MEDS: Insulin Detemir 100 units/ml Vial (Levemir) SC SCH (09:36)
[2017-07-12] MEDS: Insulin Lispro 1 UNITS/0.01 ML SC SCH (09:37)
[2017-07-12] MEDS: Insulin Reg-HIGH-Coverage SC SCH ×2 (09:37→13:47)
[2017-07-12 09:38] VITALS: BP 155/74
--- NOTE | 2017-07-12 11:33 | PN ---
DATE: 07/12/2017 TIME: 0645 hours. LOCATION: Room 363, bed 1. SUBJECTIVE: The patient is sleeping when I arrived at the bedside today. He is awakened. He is alert and he reports pain predominantly in the right knee with occasional foot pain. He reports a history of surgical I&D by Dr. Christensen yesterday of the right knee. There are currently dressings and an Redd bandage on the right leg and knee and there are MARLYS drains in place. The patient is currently unaware of his discharge planning status and he continues to receive IV antibiotic. The dressing on the right foot was changed yesterday by the podiatry resident and there is no significant discharge noted on the bandage. OBJECTIVE: GENERAL: The patient is alert and oriented x3. VITAL SIGNS: His vital signs this morning are stable. EXTREMITIES: The surgical dressings on the right foot are removed. There are two surgical wounds on the right foot approximately 8 to 10 cm in length, which are sent it over the lateral side of the first ray. There are positive granulation tissue in both wounds. There is no gross necrotic tissue visualized. There is no brooke discharge or sign of purulence. The antimicrobial wound dressing is coating the surface of both wounds. The right foot remains edematous with continued inflammatory appearance. There is no odor and there is no evidence of lymphangitis or streaking of the right foot or ankle. LABORATORY DATA: His current WBC is normal at 10. There still has a shift on his differential. Most recent x-rays were a week ago and they are post-debridement of the plantar aspect of the first metatarsal cuneiform for the osteomyelitis. IMPRESSION: This is a 57-year-old male insulin-dependent diabetes mellitus patient with neuropathy, hypertension, hyperlipidemia, osteomyelitis of the proximal first ray with Staphylococcus methicillin-resistant Staphylococcus aureus and 2 wounds currently under wound care, status post incision and drainage of the right knee. PLAN: The current situation is discussed with the patient, it is unknown what the discharge plan is. They are probably planning to try and find some subacute for both wound care and IV antibiotic for a period of 4 to 6 weeks. There is need for wound care on a daily basis. This was performed this morning by me with a saline, soaked gauze, lavage, and scrub of both wounds followed by application of a dry gauze with CurX antimicrobial wound dressing on both dorsal and plantar wounds covered by ABD pads and a dry Kerlix. The patient is advised to minimally weight bear and to not get the wounds wet in the shower, keep the wounds dry except for wound care. He was advised he will need continued antibiotic therapy for a prolonged period of time. We are going to order a stat x-ray this morning just for serial x-raying of the area of osteomyelitis and we will follow up with the patient for local wound care after we hear what the final discharge plan is. From podiatry perspective, the patient can be transferred or discharge after the stat right foot x-rays today. This should be discussed with medicine and orthopedics and infectious disease prior to initiating the discharge plan. Roberto Lane DPM
--- NOTE | 2017-07-12 11:55 | PN ---
DATE: DAILY PROGRESS NOTE SUBJECTIVE: The patient is seen and examined at bedside on the general medical rolle. The patient is status post arthroscopic washout of the right knee secondary to septic joint. This morning, the patient reports improved pain at the surgical site, and otherwise, offers no complaints. OBJECTIVE: VITAL SIGNS: Temperature 98, pulse 73, blood pressure 142/68, respiratory rate 20, oxygen saturation 98% on room air. GENERAL: Frail man, appearing older than his stated age, lying in bed, in no apparent distress. HEENT: PERRL. EOMI. No scleral icterus. Mild conjunctival pallor is noted. NECK: No JVD. LUNGS: Clear to auscultation. CARDIOVASCULAR: Regular rate and rhythm. Normal S1 and S2. ABDOMEN: Normoactive bowel sounds, soft, nontender, and nondistended. EXTREMITIES: Right foot with surgical dressing in place. Right knee with surgical dressing in place and drain with minimal serosanguineous discharge. NEUROLOGIC: Awake, alert, and oriented x3. No focal motor deficits. LABORATORY DATA: WBC 10, hemoglobin 8.2, hematocrit 25, platelets 411. Chemistry reviewed and unremarkable. Blood cultures remain negative as of 07/03/2017. Right knee synovial fluid culture with no growth to date. ASSESSMENT: The patient is a 57-year-old man with insulin-dependent diabetes mellitus with diabetic neuropathy, hypertension, hyperlipidemia, and history of right lower extremity osteomyelitis with history of methicillin-resistant Staphylococcus aureus bacteremia who presented to [facility] with several-day history of right foot pain, edema, and erythema and who was admitted for severe sepsis secondary to right foot osteomyelitis with gas gangrene who is now status post arthroscopic washout of the right knee secondary to septic joint of the right knee. PLAN: 1. Osteomyelitis of the right foot, input from Dr. Lane noted and appreciated. Continue with local wound care and postoperative care as per Dr. Lane and the podiatric team. Input from Dr. Heath and Dr. Adams of infectious disease noted and appreciated and patient remains on daptomycin and will require a 4-to-6-week course of IV antibiotics. A PICC line has been placed to facilitate long-term antibiotics and the patient has been accepted into an LTAC. 2. Right knee septic joint, status post arthroscopic washout, input from Dr. Christensen of the orthopedic team noted and appreciated. Continue with postoperative care as per orthopedic surgery team. 3. Severe sepsis secondary to osteomyelitis of the right foot and right knee septic joint, resolving. Continue with care as per numbers 1 and 2. 4. Acute kidney injury, resolved. 5. Hyponatremia, resolved. 6. Hypertension, blood pressure remained stable. Continue with diltiazem 240 mg p.o. daily. 7. Hyperlipidemia. Continue with Lipitor 20 mg p.o. daily. 8. Insulin-dependent diabetes mellitus with diabetic neuropathy. Continue with Humalog 70/30, 25 units subcutaneously q.a.m. and Lantus 40 units subcutaneously b.i.d. 9. Anxiety disorder. Continue with Xanax 1 mg p.o. b.i.d. 10. Paroxysmal atrial fibrillation, status post ablation. The patient remains in normal sinus rhythm. Continue with diltiazem 240 mg p.o. daily. 11. Sciatica. Continue with oxycodone 30 mg p.o. q. 4 hours p.r.n. pain. 12. Iron deficiency anemia. Etiology likely secondary to operative blood losses. We will continue to monitor CBC daily. Patient declined Feosol secondary to GI issues. 13. Prophylaxis. Continue with Protonix 40 mg p.o. daily. We will resume Eliquis once okay as per orthopedic surgery. CODE STATUS: FULL CODE. Ty Monterroso MD
--- NOTE | 2017-07-12 12:45 | RAD ---
PROCEDURE: Right Foot Radiographs. HISTORY: serial evaluation of 1st T/MT debridement for OM COMPARISON: 07/05/2017 FINDINGS: BONES: No acute fracture. There is erosion or surgical debridement involving the medial proximal 1st metatarsal. There is periosteal reaction along the entire lateral aspect of the diaphysis of the 1st metatarsal consistent with osteomyelitis. This is unchanged from prior examinations. There is a healed fracture of the distal 2nd metatarsal with extensive callus. JOINTS: There is ankylosis of the 1st interphalangeal joint. Remaining visualized joint spaces and articular surfaces are preserved. SOFT TISSUES: There is a large cutaneous wound in the medial plantar soft tissue at the level of the 1st tarsal metatarsal articulation. Previously identified subcutaneous emphysema is no longer evident. OTHER FINDINGS: None. IMPRESSION: Defect medial base of 1st metatarsal, possibly due to surgical debridement. Osteomyelitis of 1st metatarsal with periosteal reaction noted along the diaphysis. Large cutaneous wound. Old healed fracture 2nd metatarsal head. Ankylosis 1st interphalangeal joint.
--- NOTE | 2017-07-12 14:01 | PN ---
DATE: 07/12/2017 LOCATION: The patient is in room 363, bed 1. REASON FOR CONSULTATION AND FOLLOWUP: Staphylococcus bacteremia, rule out endocarditis, history of paroxysmal atrial fibrillation, status post radiofrequency ablation x2, and septic knee joint. SUBJECTIVE: The patient lying comfortably in bed without chest pain, shortness of breath, or palpitations. PHYSICAL EXAMINATION: VITAL SIGNS: Blood pressure 155/74, previous blood pressure on 07/11 was 119/66, respirations 20, pulse 73, temperature 98. HEENT: Head is normocephalic. Eyes: Pupils are normal. Conjunctivae slightly pale. NECK: JVP low. Carotids are equal. THORAX: AP diameter is normal. LUNGS: Clear. CARDIOVASCULAR: S1 and S2. ABDOMEN: Soft. Nontender. No organomegaly. Bowel sound normal. EXTREMITIES: The patient has drain put in the right knee, post surgery yesterday. LABORATORY DATA: WBC 10.0, hemoglobin 8.2, hematocrit 25.2, and platelets 411. Sodium 135, potassium 4.1, BUN 8, and creatinine 0.4, random sugar 130. AST and ALT normal. Total protein is 7.5, albumin 2.5. DIAGNOSES: Septic right knee, incision and drainage washout of the knee, paroxysmal atrial fibrillation, status post radiofrequency ablation x2, methicillin-resistant Staphylococcus aureus bacteremia, osteomyelitis of the right foot, diabetes, hypertension, hyperlipidemia, diabetic neuropathy. PLAN: The patient is on Diltiazem CD 240 p.o. daily, daptomycin 540 mg IV q. 24 hour, Eliquis on hold because of surgery on the knee yesterday, and the patient's drain is showing blood in that. Furosemide 20 mg daily, insulin as ordered, atorvastatin 20 mg daily, Protonix 40 daily. We will monitor blood pressure, if it stays high, then we will adjust the medication. Yesterday's blood pressure was normal. We will follow. Shilo Domínguez MD
--- NOTE | 2017-07-12 15:31 | CP.PCM.PN ---
Subjective - Date & Time of Evaluation Date of Evaluation: 07/12/17 Time of Evaluation: 09:55 - Subjective Subjective: Still with right knee pain but it is better after the washout and synovectomy and meniscectomy. No fevers overnight, diarrhea, less right foot pain. Objective - Vital Signs/Intake and Output Vital Signs (last 24 hours): Temp Pulse Resp BP Pulse Ox 98 F 73 20 142/68 98 07/12/17 07:52 07/12/17 07:52 07/12/17 07:52 07/12/17 07:52 07/12/17 07:52 Intake and Output: 07/12/17 07/12/17 06:59 18:59 Intake Total 620 Output Total 950 Balance -330 - Medications Medications: Current Medications Acetaminophen (Tylenol 325mg Tab) 650 mg PO Q4H PRN PRN Reason: Fever >100.4 F Last Admin: 07/09/17 17:28 Dose: 650 mg Albuterol/Ipratropium (Duoneb 3 Mg/0.5 Mg (3 Ml) Ud) 3 ml IH [id number] [facility] Last Admin: 07/12/17 07:52 Dose: Not Given Albuterol/Ipratropium (Duoneb 3 Mg/0.5 Mg (3 Ml) Ud) 3 ml IH Q2H PRN PRN Reason: Shortness of Breath Alprazolam (Xanax) 1 mg PO BID PRN; Protocol PRN Reason: Anxiety Last Admin: 07/11/17 19:34 Dose: 1 mg Apixaban (Eliquis) 5 mg PO BID POWER PRN Reason: Protocol Last Admin: 07/08/17 17:39 Dose: 5 mg Atorvastatin Calcium (Lipitor) 20 mg PO DIN [facility] Last Admin: 07/11/17 17:25 Dose: 20 mg Diltiazem HCl (Cardizem Cd) 240 mg PO DAILY [facility] Last Admin: 07/11/17 08:59 Dose: 240 mg Docusate Sodium (Colace) 100 mg PO BID [facility] Last Admin: 07/11/17 17:25 Dose: 100 mg Furosemide (Lasix) 20 mg PO DAILY [facility] Last Admin: 07/11/17 08:59 Dose: 20 mg Hydromorphone HCl (Dilaudid) 0.5 mg IVP Q15M PRN PRN Reason: Pain, moderate (4-7) Daptomycin 540 mg/ Sodium (Chloride) 100 mls @ 200 mls/hr IV Q24H [facility] Stop: 07/13/17 22:16 Last Admin: 07/11/17 21:36 Dose: 200 mls/hr Insulin Detemir (Levemir) 40 unit SC BID [facility] Last Admin: 07/11/17 19:03 Dose: Not Given Insulin Human Lispro (Humalog) 25 units SC BRK [facility] Last Admin: 07/11/17 08:59 Dose: Not Given Insulin Human Regular (Humulin R High) 0 units SC ACHS [facility] PRN Reason: Protocol Last Admin: 07/11/17 21:52 Dose: Not Given Oxycodone HCl (Oxycodone Immediate Release Tab) 30 mg PO Q4H PRN PRN Reason: Pain, severe (8-10) Last Admin: 07/12/17 06:02 Dose: 30 mg Pantoprazole Sodium (Protonix Ec Tab) 40 mg PO 0600 [facility] Last Admin: 07/12/17 05:35 Dose: 40 mg - Labs Labs: 07/12/17 06:05 07/12/17 06:05 PT 12.8 Seconds (9.9-11.8) H 07/11/17 06:00 INR 1.19 (0.93-1.08) H 07/11/17 06:00 APTT 37.6 Seconds (23.7-30.8) H 07/11/17 06:00 - Constitutional Appears: Non-toxic, No Acute Distress - Head Exam Head Exam: NORMAL INSPECTION - Neck Exam Neck Exam: absent: Meningismus - Respiratory Exam Respiratory Exam: Decreased Breath Sounds - Cardiovascular Exam Cardiovascular Exam: +S1, +S2 - GI/Abdominal Exam GI & Abdominal Exam: Soft. absent: Tenderness - Extremities Exam Additional comments: right knee and right foot with dressings in place Assessment and Plan - Assessment and Plan (Free Text) Plan: Assessment Sepsis due to gas gangrene with osteomyelitis of the right foot associated with a chronic plantar ulcer S/P debridement POD #11, with associated MRSA bacteremia (and MRSA also found in the foot cx), as well as right knee septic arthritis, S/P arthrocentesis S/P washout with meniscectomy and synovectomy POD #1; patient with thickened aortic valves, ANJU was not specific for endocarditis right knee swelling HTN DM GERD peripheral neuropathy history of cardiac ablation history of left hallux partial amputation peripheral vascular disease Plan continue Daptomycin (patient is refusing Vancomycin even after explanation that he can only go deaf if the levels are not monitored properly and exceeds level of 20) - will recommend at least 6 weeks of antibiotics with weekly ESR, CRP, CBC, CMP, CPK levels repeat blood cx are negative reviewed ANJU results S/P right knee arthrocentesis - cx from the synovial fluid are negative x 2 days - follow up OR cultures; synovial fluid analysis showed more than 50k of WBC's with predominantly neutrophils will continue to monitor clinically
== END 2017-07-12 18:11 | DRG 853 ==
LOC: ED 12:22 → ERH 13:48 → 2RSO 15:46 → 3RNO 07-07 23:42
PROVIDERS: ADMIT Student in an Organized Health Care Education/Training Program; ATTEND Student in an Organized Health Care Education/Training Program
PROC: 0JBQ0ZZ Excision of Right Foot Subcutaneous Tissue and Fascia, Open Approach (ICD-10-PCS; principal; 2017-07-01 18:20)
PROC: 30233N1 Transfusion of Nonautologous Red Blood Cells into Peripheral Vein, Percutaneous Approach (ICD-10-PCS; 2017-07-02)
PROC: 0QBN0ZZ Excision of Right Metatarsal, Open Approach (ICD-10-PCS; 2017-07-05)
PROC: B246ZZ4 Ultrasonography of Right and Left Heart, Transesophageal (ICD-10-PCS; 2017-07-05)
PROC: 0S9C3ZX Drainage of Right Knee Joint, Percutaneous Approach, Diagnostic (ICD-10-PCS; 2017-07-10)
PROC: 0SBC4ZZ Excision of Right Knee Joint, Percutaneous Endoscopic Approach (ICD-10-PCS; 2017-07-11)
PROC: 0SBC4ZZ Excision of Right Knee Joint, Percutaneous Endoscopic Approach (ICD-10-PCS; 2017-07-11)
PROC: 0SQC4ZZ Repair Right Knee Joint, Percutaneous Endoscopic Approach (ICD-10-PCS; 2017-07-11)
DX: A41.02 Sepsis due to Methicillin resistant Staphylococcus aureus (principal); A48.0 Gas gangrene; M86.171 Other acute osteomyelitis, right ankle and foot; N17.9 Acute kidney failure, unspecified; M00.9 Pyogenic arthritis, unspecified; L03.115 Cellulitis of right lower limb; L02.611 Cutaneous abscess of right foot; E87.1 Hypo-osmolality and hyponatremia; E11.69 Type 2 diabetes mellitus with other specified complication; R65.20 Severe sepsis without septic shock; E11.621 Type 2 diabetes mellitus with foot ulcer; L97.519 Non-pressure chronic ulcer of other part of right foot with unspecified severity; E11.42 Type 2 diabetes mellitus with diabetic polyneuropathy; M23.200 Derangement of unspecified lateral meniscus due to old tear or injury, right knee; M23.203 Derangement of unspecified medial meniscus due to old tear or injury, right knee; M94.261 Chondromalacia, right knee; M65.861 Other synovitis and tenosynovitis, right lower leg; E11.51 Type 2 diabetes mellitus with diabetic peripheral angiopathy without gangrene; I10 Essential (primary) hypertension; I48.0 Paroxysmal atrial fibrillation; K21.9 Gastro-esophageal reflux disease without esophagitis; R13.10 Dysphagia, unspecified; R49.0 Dysphonia; M54.30 Sciatica, unspecified side; D50.9 Iron deficiency anemia, unspecified; E78.5 Hyperlipidemia, unspecified; F41.9 Anxiety disorder, unspecified; Z79.4 Long term (current) use of insulin